=== PATIENT | female | born 1935 | race Caucasian/White ===

== ENCOUNTER → 2019-03-23 10:43 | Outpatient (BNVA) | payer MEDICARE, OTHER, SELFPAY | PROVIDERS: Family Provider Family Medicine; PCP Internal Medicine; Visit Provider Internal Medicine Cardiovascular Disease | DX: I48.91 Unspecified atrial fibrillation (principal) | CPT/HCPCS: 85610 ==

== ENCOUNTER → 2019-03-30 10:54 | Outpatient (BNVA) | payer MEDICARE, OTHER, SELFPAY | PROVIDERS: Family Provider Family Medicine; PCP Internal Medicine; Visit Provider Internal Medicine Cardiovascular Disease | DX: I48.91 Unspecified atrial fibrillation (principal) | CPT/HCPCS: 85610 ==

== ENCOUNTER → 2019-04-27 10:11 | Outpatient (BNVA) | payer MEDICARE, OTHER, SELFPAY | PROVIDERS: Family Provider Family Medicine; PCP Internal Medicine; Visit Provider Internal Medicine Cardiovascular Disease | DX: I48.91 Unspecified atrial fibrillation (principal) | CPT/HCPCS: 85610 ==

== ENCOUNTER → 2019-08-03 10:18 | Outpatient (BNVA) | payer MEDICARE, OTHER, SELFPAY | PROVIDERS: Family Provider Family Medicine; PCP Internal Medicine; Visit Provider Internal Medicine Cardiovascular Disease | DX: I48.0 Paroxysmal atrial fibrillation (principal) | CPT/HCPCS: 85610 ==

== ENCOUNTER 2019-08-06 11:43 | Inpatient (IN) | payer MEDICARE, OTHER, SELFPAY ==
[2019-08-06] VITALS (9 sets, daily range): BP systolic 138–159; BP diastolic 76–96; PULSE 90–104; RESP 16–18; TEMP 36.6–36.8; O2SAT 92–98; BMI 29.2
--- NOTE | 2019-08-06 11:55 | XR_ITS ---
WS: [id number] Portable AP upright chest, 08/06/2019 Clinical Data: fall; pre-op Comparison: PA and lateral chest, 10/03/2016. Findings: No nodules, masses or effusions are seen. The heart is slightly enlarged. The pulmonary vas cularity is not increased. No pneumonia or pneumothorax is seen. There is a hiatal hernia behind the heart. A 2-lead pacemaker remains in good position. XR/XR chest 1V portable [id number] Impression: 1. Cardiomegaly and permanent pacemaker. 2. Hiatal hernia.
--- NOTE | 2019-08-06 11:57 | ED_ITS ---
HPI - Extremity Problem General: Chief complaint: Extremity Injury, Lower Stated complaint: TRAUMATIC HIP INJURY Time Seen by Provider: 08/06/19 11:45 History of Present Illness: HPI Narrative: Patient was knocked down by a calf and stroke her left hip on the feet a lot on the way to the ground. Patient has pain to the left hip. Extremity is shortened and externally rotated. There is no evidence of other injury MD Complaint: extremity pain and joint pain Onset (ago): minute(s) Pain Consistency: constant Location: left Radiation: none Review of Systems General: Reports: 10 or more systems reviewed and unremarkable except in HPI and below PFSH ED PFSH: Medical History Atrial fibrillation Hypertension Pacemaker TIA (transient ischemic attack) Surgical History History of hysterectomy Hx of cholecystectomy Family History Other CAD (coronary artery disease) Diabetes Social History Smoking and tobacco status: never smoked Alcohol intake: never Physical Exam Const: COMMON NORMALS: no acute distress, average body habitus, patient oriented x3, alert and well nourished HENMT: COMMON NORMALS: normocephalic, atraumatic, hearing grossly normal bilaterally, external ears normal, EAC's normal, TM's normal bilaterally, Normal external nose present, Normal nasal mucous membranes and turbinates present, moist oral mucous membranes, oropharynx normal, dentition normal and gingiva normal HEAD & SCALP: normocephalic and atraumatic NOSE: Normal external nose present and Normal nasal mucous membranes and turbinates present EXTERNAL EAR: Yes external ears normal EXTERNAL AUDITORY CANAL: EAC's normal TYMPANIC MEMBRANE: TM's normal bilaterally Eye: COMMON NORMALS: Equal, round and reactive pupils present, EOMs intact bilaterally, conjunctivae normal, no scleral icterus, no papilledema, normal visual yeung by confrontation and fundi normal bilaterally CONJUNCTIVA: Yes conjunctivae normal PUPIL: Yes Equal, round and reactive pupils present DIRECT OPHTHALMOSCOPY: Yes no papilledema and Yes fundi normal bilaterally Neck/C-Spine: COMMON NORMALS: full ROM, no lymphadenopathy, supple, no meningeal signs, no JVD, Thyroid normal and No carotid bruits THYROID: Thyroid normal Chest: COMMONS NORMALS: normal inspection of the chest and normal palpation of entire chest wall Resp: COMMON NORMALS: normal respiratory effort, No retractions, No use of accessory muscles, clear to auscultation bilaterally and percussion normal AUSCULTATION: clear to auscultation bilaterally PERCUSSION: percussion normal Cardio: COMMON NORMALS: no JVD, regular rate, regular rhythm, S1 normal heart sound present, S2 normal heart sound present, No gallops present (Cardio), No clicks present (Cardio), No murmurs present (Cardio), No rub (Cardio) and Peripheral pulses 2+ throughout RATE: regular rate RHYTHM: regular rhythm HEART SOUNDS: S1 normal heart sound present and S2 normal heart sound present PERIPHERAL PULSES: Peripheral pulses 2+ throughout GI: COMMON NORMALS: Normal to inspection, nondistended, normoactive bowel sounds present, Soft to palpation, non-tender, No hepatosplenomegaly present, no masses and no bruits PALPATION: Yes Soft to palpation and Yes No hepatosplenomegaly present : COMMON NORMALS: Yes normal external appearance Back/Pelvis: COMMON NORMALS: thoracic and lumbar spine normal to inspection, no thoracic nor lumbar tenderness, thoraco-lumbar ROM normal and straight leg raise negative bilaterally Extremity: COMMON NORMALS: normal to inspection, full ROM, capillary refill normal, no joint enlargement, no clubbing, cyanosis or edema, no calf tenderness and no pedal edema Neuro: COMMON NORMALS: patient oriented x3 SENSORIUM/ORIENTATION: Yes alert and Yes somnolent MENINGEAL SIGNS: Yes no meningeal signs Skin: COMMON NORMALS: no rashes or lesions noted, no wounds, no jaundice and no mottling GENERAL SKIN EXAM: no rashes or lesions noted Course Vital Signs: Vital signs: Vital Signs Temperature 97.9 F 08/06/19 11:43 Pulse Rate 90 08/06/19 11:52 Respiratory Rate 17 08/06/19 11:52 Blood Pressure 150/82 08/06/19 11:52 Pulse Oximetry 97 08/06/19 11:55 MDM - Extremity (Nontraumatic) Lab Data: Labs: Lab Results 08/06/19 08/06/19 08/06/19 Range/Units 11:15 11:15 12:40 PT 31.50 H (10.5-13.3) SECO NDS INR 3.00 H (0.8-1.2) APTT 45.7 H (23.9-36.7) SECO NDS Sodium 139 (136-145) mmol/L Potassium 4.0 (3.5-5.1) mmol/L Chloride 99 (98-107) mmol/L Carbon Dioxide 26 (22-29) mmol/L Anion Gap 18.0 (5-19) BUN 16 (8-23) mg/dL Creatinine 1.0 H (0.5-0.9) mg/dL Glucose 117 H (65-115) mg/dL Calculated Osmolal ity 285 (285-295) mOsm/k g Lactate 1.2 (0.5-2.2) mmol/L Calcium 9.8 (8.5-10.5) mg/dL Total Bilirubin 0.5 (0.15-1.2) mg/dL AST 33 H (0-32) U/L ALT 25 (0-33) U/L Alkaline Phosphata se 92 (35-105) IU/L Total Protein 7.8 (6.6-8.7) g/dL Albumin 4.1 (3.5-5.2) g/dL Globulin 3.7 (1.3-4.6) g/dL Discharge Plan Discharge Patient Disposition: Admitted As Inpatient Clinical Impression: Fracture of hip Qualifiers: Encounter type: initial encounter Fracture type: closed Laterality: left Qualified Code(s): S72.002A - Fracture of unspecified part of neck of left femur, initial encounter for closed fracture Condition: Fair Referrals: Clarence Mendieta MD [Primary Care Provider] - Sigifredo Duran MD [Family Provider] - Coding Level of Care Code ED Master Pilot for [facility] Fwd Exam Comprehensive
--- NOTE | 2019-08-06 12:02 | XR_ITS ---
WS: [id number] Left hip, AP and frog leg, 08/06/2019 Clinical Data: hip fx Comparison: None. Findings: There is a comminuted intertrochanteric fracture left hip. The left femoral head remains within the a cetabulum. XR/XR hip LT 2-3V wo/w pel* [id number] Impression: Comminuted left hip intertrochanteric fracture.
[2019-08-06] MEDS: ondansetron 2 mg/ML SDV 2 mL 8 MG IVP (12:21)
[2019-08-06 12:34] LABS: Alanine Aminotransferase 25 U/L (0-33); Albumin Level 4.1 g/dL (3.5-5.2); Alkaline Phosphatase 92 IU/L (35-105); Aspartate Amino Transferase 33 U/L (0-32); Blood Urea Nitrogen 16 mg/dL (8-23); Calcium 9.8 mg/dL (8.5-10.5); Carbon Dioxide 26 mmol/L (22-29); Chloride 99 mmol/L (98-107); Globulin 3.7 g/dL (1.3-4.6); Glucose 117 mg/dL (65-115); Osmolality Calculated 285 mOsm/kg (285-295); Sodium 139 mmol/L (136-145); Total Bilirubin 0.5 mg/dL (0.15-1.2); Total Protein 7.8 g/dL (6.6-8.7)
[2019-08-06 12:52] LABS: Partial Thromboplastin Time 45.7 SECONDS (23.9-36.7)
[2019-08-06 13:04] LABS: Lactate (Lactic Acid level) 1.2 mmol/L (0.5-2.2)
[2019-08-06 13:31] LABS: Basophils # 0.1 10^3/uL (0.0-0.1); Basophils % 0.5 %; Eosinophils % 0.3 %; Hematocrit 38.6 % (37.0-47.0); Hemoglobin 11.8 g/dL (11.5-15.3); Lymphocytes % 8.4 %; Mean Corpuscular HGB Conc 30.6 g/dL (30.0-36.0); Mean Corpuscular Hemoglobin 28.3 pg (28.0-34.0); Mean Corpuscular Volume 92.6 fL (81-99); Mean Platelet Volume 10.1 fL (7.4-10.4); Monocytes # 0.5 10^3/uL (0.2-0.9); Monocytes % 4.3 %; Neutrophils # 10.3 10^3/uL (1.8-7.7); Neutrophils % 86.1 %; Nucleated Red Blood Cells % 0 %; Platelet Count 196 10^3/cmm (130-400); Red Blood Count 4.17 10^6/uL (4.1-5.3); Red Cell Distribution Width 14.7 % (12.1-15.1); White Blood Count 11.9 10^3/uL (4.0-10.0)
[2019-08-06] MEDS: morphine 4 mg/mL SDV 1 mL IVP ×2 (13:31→17:36)
[2019-08-06] MEDS: phytonadione (ADULT) 10 mg/mL Ampule 1 mL 2.5 MG PO (13:37)
[2019-08-06] MEDS: sodium chloride 0.9% 1,000 ML 100 ML IV (13:37)
--- NOTE | 2019-08-06 16:34 | ECG_ITS ---
Measurements Intervals [place] Rate: 96 P: TX: 0 QRS: -8 QRSD: 88 T: 153 QT: 338 QTc: 429 ATRIAL FIBRILLATION WITH ABERRANT CONDUCTION OR VENTRICULAR PREMATURE COMPLEXES ST DEVIATION AND MODERATE T-WAVE ABNORMALITY, CONSIDER LATERAL ISCHEMIA [-0.1+ mV T WAVE IN I/aVL/V5/V6] No previous ECG available for comparison Electronically Signed On 08-06-2019 21:05:02 CDT by Oziel Kelly M.D. [email or web address]
--- NOTE | 2019-08-06 16:34 | PM.HP ---
Providers/Chief Complaint Admitting Physician: Paola Gramajo MD Primary Care Provider: Clarence Mendieta MD Chief Complaint: TRAUMATIC HIP INJURY History of Present Illness Khushi Dolan is a 83 year old female who is quite active still. 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 One in animals, which she assumed was around 800 pounds, bumped into her and she fell on the ground near the water trough. She landed on her left hip. Almost instantly she realized that she had probably fractured her hip. She told her to go call for an ambulance. She was brought in and ultimately found to have a displaced left intertrochanteric hip fracture. This was purely a cow versus human situation with no preceding symptoms otherwise. Patient denies any previous issues with anesthesia. No recent chest pain or difficulty breathing when taking care of her ADLs or animals. She is most concerned currently about how quickly she will recover and be able to get back to doing what she usually does. Review of Systems Const: Denies: fever(s), chills or change in appetite Eyes: Denies: change in vision ENMT: Denies: throat pain, dry mouth or nasal congestion Card: Denies: chest pain, palpitations or edema Resp: Denies: dyspnea, productive cough or non-productive cough GI: Denies: abdominal pain, nausea, vomiting, diarrhea or constipation : Denies: difficulty voiding Musc: Reports: extremity pain Skin/Breast: Denies: rash or pruritus Neuro: Denies: headache(s), numbness in extremities, weakness in extremities or dizziness Psych: Denies: anxiety or depression Amilcar/Lymph: Reports: other (Denies significant bleeding despite anticoagulation); Denies: easy bruising Medications/Allergies Home Medications Medication Instructions Recorded Confirmed Last Taken Type warfarin 4 mg tablet 4 mg PO DIRECTED #90 tab 05/06/19 08/06/19 08/05/19 Rx chlorthalidone 25 mg tablet 12.5 mg PO DAILY tab 05/13/19 08/06/19 08/05/19 History multivitamin 1 tab PO DAILY 05/13/19 08/06/19 08/05/19 History metoprolol succinate 100 mg 100 mg PO DAILY #90 tab 06/30/19 08/06/19 08/05/19 Rx tablet,extended release 24 hr iron 325 mg PO BID 08/06/19 08/06/19 08/05/19 History omeprazole 20 mg PO DAILY 08/06/19 08/06/19 08/05/19 History potassium chloride 20 meq PO DAILY 08/06/19 08/06/19 08/05/19 History Allergies Allergy/AdvReac Type Severity Reaction Status Date / Time valsartan [From Diovan] Allergy Unknown Unverified 03/23/19 10:43 amlodipine AdvReac Unknown Verified 08/06/19 18:32 anxiety med AdvReac Severe very sick Uncoded 08/06/19 18:35 PFSH Acute PFSH: Medical History (Updated 08/06/19 @ 22:50 by Paola Gramajo MD) Atrial fibrillation Hypertension Pacemaker TIA (transient ischemic attack) X2 Surgical History (Updated 08/06/19 @ 22:43 by Paola Gramajo MD) History of cataract surgery History of hysterectomy Hx of cholecystectomy Family History Other CAD (coronary artery disease) Diabetes Social History (Updated 08/06/19 @ 22:45 by Paola Gramajo MD) Smoking and tobacco status: never smoked Alcohol intake: never Substance/Drug Use: never Marital status: Vitals/I&O/Wt Last Vital Signs Temp 97.8 F 08/06/19 15:17 Pulse 102 H 08/06/19 15:17 Resp 18 08/06/19 15:17 BP 138/96 08/06/19 15:17 Pulse Ox 98 08/06/19 15:17 Weight last 48 hrs Weight 68.039 kg Physical Exam Const: OTHER: Alert, oriented x3, cooperative HENMT: OTHER: Normocephalic atraumatic, moist mucus membranes Eye: OTHER: Pupils equally round and reactive to light, arcus senilis noted bilaterally Neck/C-Spine: OTHER: Supple, no thyromegaly or lymphadenopathy Resp: OTHER: Clear to auscultation bilaterally, no rales, rhonchi or wheezes noted, no accessory muscle use noted Cardio: OTHER: Regular rate, no murmurs GI: OTHER: Abdomen soft, nontender, nondistended with positive bowel sounds : OTHER: Normal external genitalia Grimm has been placed Extremity: NARRATIVE EXTREMITY EXAM: Left lower extremity externally rotated and shortened, capillary refill less than 2 seconds Neuro: OTHER: Face symmetric, speech clear, moves all extremities Psych: OTHER: Normal affect Skin: OTHER: Has some chronic skin changes, skin dry Urinary Catheter Management^: Grimm: Cath Placed During This Visit: yes Urinary Catheter Date of Insertion: 08/06/19 Urinary Catheter Time of Insertion: 14:42 Data : 08/06/19 13:27 08/06/19 11:15 A&P Assessment and plan (1) Fall from ground level: Secondary to a cow bumping into her Status: Acute (2) Closed intertrochanteric fracture of left hip: Status: Acute Qualifiers: Encounter type: initial encounter Fracture alignment: nondisplaced Qualified Code(s): S72.145A - Nondisplaced intertrochanteric fracture of left femur, initial encounter for closed fracture (3) Chronic anticoagulation: On Coumadin, therapeutic INR at 3.0 Status: Chronic (4) Atrial fibrillation: Chronically on beta-blockade Status: Chronic Qualifiers: Atrial fibrillation type: paroxysmal Qualified Code(s): I48.0 - Paroxysmal atrial fibrillation (5) Hypertension: Chronically on chlorthalidone with potassium supplementation Status: Chronic Qualifiers: Hypertension type: essential hypertension Qualified Code(s): I10 - Essential (primary) hypertension (6) Pacemaker: Status: Chronic (7) TIA (transient ischemic attack): History of 2 prior TIAs but no residual symptoms Status: Chronic Additional A&P Information Some microscopic hematuria noted Reactive leukocytosis Inpatient admission Dr. Montes has been consulted from orthopedics and I have discussed the case with him She received some vitamin K in the emergency room We will type and cross for FFP with plan to start giving it at 8 AM. It sounds like surgery will be around noonish which should allow plenty of time for recheck of INR. Patient is quite active on a regular basis and beyond reversal of anticoagulation I do not see contraindication to proceeding with surgery I have presently held chlorthalidone and potassium Low volume IV fluids tonight Metoprolol has been continued as has home PPI and multivitamin, iron Plans including post discharge plans were discussed with patient. We will evaluate how she does postoperatively to determine best course of action. Options include home with home health or skilled rehabilitation. Need anticoagulation restarted postoperatively with Coumadin Full code Attestations Medical Necessity Statement*: Anticipated stay greater than 2 midnights in a patient who had an accidental encounter with a cow leading to a fall and an intertrochanteric hip fracture necessitating repair. Plans are as indicated. Coding Level of Care Code Acute [employer] for [employer] Diagnoses Fall from ground level W18.30XA Closed intertrochanteric fracture of left hip S72.145A Encounter type: initial encounter Fracture alignment: nondisplaced Chronic anticoagulation Z79.01 Atrial fibrillation I48.0 Atrial fibrillation type: paroxysmal Hypertension I10 Hypertension type: essential hypertension Pacemaker Z95.0 TIA (transient ischemic attack) G45.9
--- NOTE | 2019-08-06 20:51 | PM.CONSULT ---
Providers/Reason For Consult Consulting Physican/Specialty*: Real Montes D.O. Orthopedic surgery Reason for Consult*: left hip pain Attending Physician: Paola Gramajo MD Primary Care Provider: Clarence Mendieta MD History of Present Illness History of Present Illness Khushi Dolan is a 83 year old female was knocked down by a calf injuring her left hip. She is brought to [facility] x-ray show a closed, displaced left intertrochanteric hip fracture. She denies any other somatic injuries. Review of Systems Const: Denies: fever(s) or chills Card: Denies: chest pain or syncope Resp: Denies: dyspnea or productive cough GI: Denies: abdominal pain, nausea or vomiting Musc: Reports: joint pain (left hip pain) Meds/Allergies Home Medications and Allergies Home Medications Medication Instructions Recorded Confirmed Last Taken Type warfarin 4 mg tablet 4 mg PO DIRECTED #90 tab 05/06/19 08/06/19 08/05/19 Rx chlorthalidone 25 mg tablet 12.5 mg PO DAILY tab 05/13/19 08/06/19 08/05/19 History multivitamin 1 tab PO DAILY 05/13/19 08/06/19 08/05/19 History metoprolol succinate 100 mg 100 mg PO DAILY #90 tab 06/30/19 08/06/19 08/05/19 Rx tablet,extended release 24 hr iron 325 mg PO BID 08/06/19 08/06/19 08/05/19 History omeprazole 20 mg PO DAILY 08/06/19 08/06/19 08/05/19 History potassium chloride 20 meq PO DAILY 08/06/19 08/06/19 08/05/19 History Allergies Allergy/AdvReac Type Severity Reaction Status Date / Time valsartan [From Arminvan] Allergy Unknown Unverified 03/23/19 10:43 amlodipine AdvReac Unknown Verified 08/06/19 18:32 anxiety med AdvReac Severe very sick Uncoded 08/06/19 18:35 Current Medications Current Medications Generic Name Dose Route Start Last Admin Trade Name Freq PRN Reason Stop Dose Admin Sodium Chloride 1,000 mls @ 100 mls/hr 08/06/19 13:00 08/06/19 13:37 Sodium Chloride 0.9% IV 100 mls/hr .Q10H SUPRIYA Administration Morphine Sulfate 4 mg 08/06/19 13:00 08/06/19 17:36 Morphine IVP 4 mg Q4H PRN Administration SEVERE PAIN Ondansetron HCl 8 mg 08/06/19 12:03 08/06/19 12:21 Zofran IVP 8 mg Q6H PRN Administration NAUSEA AND VOMITING PFSH Acute PFSH: Medical History Atrial fibrillation Hypertension Pacemaker TIA (transient ischemic attack) Surgical History History of hysterectomy Hx of cholecystectomy Family History Other CAD (coronary artery disease) Diabetes Social History Smoking and tobacco status: never smoked Alcohol intake: never Vitals/I&O/Wt Last Vital Signs Temp 98.3 F 08/06/19 19:58 Pulse 95 08/06/19 19:58 Resp 18 08/06/19 19:58 BP 144/76 08/06/19 19:58 Pulse Ox 98 08/06/19 19:58 08/06/19 08/06/19 08/06/19 06:59 14:59 22:59 Intake Total 220 / 220 Output Total 900 / 900 Balance -680 / -680 Weight last 48 hrs Weight 150 lb Physical Exam Narrative: EXAM NARRATIVE: 83-year-old white female who is alert and cooperative. Speech is fluent HENMT: COMMON NORMALS: normocephalic and atraumatic HEAD & SCALP: normocephalic and atraumatic Neck/C-Spine: COMMON NORMALS: supple and no JVD Resp: COMMON NORMALS: normal respiratory effort, No retractions and clear to auscultation bilaterally AUSCULTATION: clear to auscultation bilaterally, no crackles, no rales, no rhonchi and no wheezes Cardio: COMMON NORMALS: no JVD, regular rate, S1 normal heart sound present, S2 normal heart sound present and Peripheral pulses 2+ throughout RATE: regular rate HEART SOUNDS: S1 normal heart sound present and S2 normal heart sound present PERIPHERAL PULSES: Peripheral pulses 2+ throughout GI: COMMON NORMALS: Normal to inspection, nondistended, normoactive bowel sounds present and Soft to palpation PALPATION: Yes Soft to palpation Extremity: RIGHT LOWER EXTREMITY: Yes lower leg Right lower leg: Yes special tests Right lower leg special tests: Reji's sign: Negative LEFT LOWER EXTREMITY: Yes hip joint (left lower extremity shortened and externally rotated) Left hip: Yes special tests and Yes lower leg Left lower leg: Yes special tests Left lower leg special tests: Reji's sign: Negative Urinary Catheter Management^: Grimm: Cath Placed During This Visit: yes Reason for Continuing Indwelling Catheter: Accurate Measurement of Urinary Output in Critically Ill Patients Urinary Catheter Date of Insertion: 08/06/19 Urinary Catheter Time of Insertion: 14:42 A&P Assessment and plan (1) Fracture of hip: 83-year-old white female with closed, displaced left intertrochanteric hip fracture. Risks, benefits and potential complications of surgical intervention were discussed with the patient. She is agreeable to proceed with surgical intervention which will be undertaken tomorrow afternoon. Patient to be medically optimized. Specifically INR greater than 3 to be more normalized to around at least 1.5 Pre-and postoperative antibiotics to be ordered. Patient to be kept at bedrest. Will allow her clear liquid breakfast. Status: Acute Qualifiers: Encounter type: initial encounter Fracture type: closed Laterality: left Qualified Code(s): S72.002A - Fracture of unspecified part of neck of left femur, initial encounter for closed fracture (2) Hypertension: Status: Acute Qualifiers: Hypertension type: essential hypertension Qualified Code(s): I10 - Essential (primary) hypertension (3) Pacemaker: Status: Acute (4) TIA (transient ischemic attack): Status: Acute (5) Atrial fibrillation: Status: Acute Qualifiers: Atrial fibrillation type: paroxysmal Qualified Code(s): I48.0 - Paroxysmal atrial fibrillation Consult Attestations Medical Necessity Statement: patient's care will require at least 2 overnight stay. She'll be medically optimized overnight with surgery planned for tomorrow goal would be to return the patient home with home health Time Spent in Patient Care: 16 - 35 minutes (>than 50% of time spent in counselling and/or direct pt care on unit). Coding Level of Care Code Acute Branner Machine Tender for Davonte Rodríguez Diagnoses Fracture of hip S72.002A Encounter type: initial encounter Fracture type: closed Laterality: left Hypertension I10 Hypertension type: essential hypertension Pacemaker Z95.0 TIA (transient ischemic attack) G45.9 Atrial fibrillation I48.0 Atrial fibrillation type: paroxysmal
[2019-08-06 21:12] LABS: Add Urine Microscopic? YES; Bilirubin Urine Neg (NEGATIVE); Blood Urine 2+ (Negative); Glucose Urine UA Norm (Normal); Ketones Urine Negative (Negative); Leukocyte Esterase Urine Negative (Negative); Nitrate Urine Negative (Negative); Protein Urine Neg (Negative); Urine Appearance Clear (CLEAR); Urine Color Yellow (Yellow); Urobilinogen Urine Norm (Negative); pH Urine 6 (5-7)
[2019-08-06 21:17] LABS: Add Urine Culture? No; Bacteria Urine TRACE; Squamous Epithelial Cell Urine 0-4 (0-5)
[2019-08-07] VITALS (23 sets, daily range): BP systolic 83–156; BP diastolic 44–94; PULSE 86–122; RESP 12–20; TEMP 36.7–37.4; O2SAT 93–100
--- NOTE | 2019-08-07 | SCC_ITS ---
Procedure Done: closed reduction with intramedullary nailing left intertrochanteric hip fracture 44.4 seconds of fluoroscopic guidance, for a cumulative dose of 5.90 mGy, was provided to Dr. Montes by the radiology department. C-arm images of the LEFT hip were saved for the patient's permanent record. [facility]
--- NOTE | 2019-08-07 | XR_ITS ---
WS: [id number] XR hip LT 2-3V wo/w pel* [id number] REASON FOR EXAM: OR PICS FINDINGS: C-arm images show a gamma nailing good position with the intertrochanteric fracture immobil ized with a gamma nail satisfactory. XR/XR hip LT 2-3V wo/w pel* [id number] IMPRESSION: Satisfactory fixation of the left hip with a gamma nail.
[2019-08-07] MEDS: acetaminophen 325 mg Tablet 650 MG PO ×2 (00:04→08:55)
[2019-08-07] MEDS: morphine 4 mg/mL SDV 1 mL IVP (03:56)
[2019-08-07 05:16] LABS: Basophils % 0.4 %; Eosinophils # 0.1 10^3/uL (0.0-0.8); Eosinophils % 0.9 %; Hematocrit 35.8 % (37.0-47.0); Hemoglobin 11.1 g/dL (11.5-15.3); Lymphocytes # 1.4 10^3/uL (0.8-4.8); Lymphocytes % 17.2 %; Mean Corpuscular Hemoglobin 28.5 pg (28.0-34.0); Monocytes # 0.8 10^3/uL (0.2-0.9); Monocytes % 9.6 %; Neutrophils # 5.7 10^3/uL (1.8-7.7); Neutrophils % 71.5 %; Nucleated Red Blood Cells % 0 %; Platelet Count 164 10^3/cmm (130-400); Red Blood Count 3.89 10^6/uL (4.1-5.3); Red Cell Distribution Width 14.8 % (12.1-15.1)
[2019-08-07 05:33] LABS: INR 1.68 (0.8-1.2)
[2019-08-07 05:38] LABS: Anion Gap 13.5 (5-19); Blood Urea Nitrogen 13 mg/dL (8-23); Calcium 8.9 mg/dL (8.5-10.5); Carbon Dioxide 28 mmol/L (22-29); Chloride 97 mmol/L (98-107); Glucose 99 mg/dL (65-115); Osmolality Calculated 276 mOsm/kg (285-295); Potassium 3.5 mmol/L (3.5-5.1); Sodium 135 mmol/L (136-145)
--- NOTE | 2019-08-07 06:30 | PC.NURSE ---
Dr Montes called verified that pt get clear liq diet then npo after 0800. Called dietary and ordered tray.
[2019-08-07] MEDS: ferrous sulfate EC 325 mg Tablet PO (07:53)
[2019-08-07] MEDS: metoprolol succinate ER (24 HR) 100 mg Tablet PO (07:53)
[2019-08-07] MEDS: diphenhydrAMINE 50 mg Capsule PO (08:55)
--- NOTE | 2019-08-07 09:46 | P.PN_ITS ---
Subjective Subjective: Interval history: Called with patient having some itching after FFP infusion has been going a bit. Ordered Benadryl and Tylenol and continuation of the FFP at that time. Towards the end of the FFP infusion, patient developed an actual rash between her legs, shortness of breath, tachycardia and hypotension. A liter of fluid was ordered. She had had her metoprolol dose prior to initiation of FFP as well though this is a normal medication. Review of a.m. labs did not show significant drop in hemoglobin or bump in creatinine earlier today. Vitals/I&O/Wt Last Vital Signs Temp 98.4 F 08/07/19 09:33 Pulse 113 H 08/07/19 09:33 Resp 20 H 08/07/19 09:33 BP 88/54 08/07/19 09:33 Pulse Ox 94 08/07/19 09:33 08/06/19 08/07/19 08/07/19 22:59 06:59 14:59 Intake Total 280 / 280 60 / 340 480 / 480 Output Total 900 / 900 225 / 1125 Balance -620 / -620 -165 / -785 480 / 480 Weight last 48 hrs Weight 68.039 kg Physical Exam Const: OTHER: Tachypneic, red face, mild distress with some tearing noted after recent episode of emesis HENMT: OTHER: Nasal rhinorrhea Eye: OTHER: Extraocular movements intact Neck/C-Spine: OTHER: Supple Resp: OTHER: Clear anteriorly, faint rales bibasilar, tachypnea with some supraclavicular retractions but was coming down while I was in the room Cardio: OTHER: Tachycardic, irregular GI: OTHER: Abdomen soft : OTHER: Grimm in place, no gross blood noted Extremity: NARRATIVE EXTREMITY EXAM: Left lower extremity externally rotated and shortened, pulse intact Neuro: OTHER: Face symmetric, speech clear, moves all extremities Psych: OTHER: Alert and oriented Skin: OTHER: Patient has diffuse macular erythema starting in the lower abdomen and extending to her knees that was not present previously Urinary Catheter Management^: Grimm: Cath Placed During This Visit: yes Reason for Continuing Indwelling Catheter: Required Immobilization for Trauma or Surgery or Anesthesia Urinary Catheter Date of Insertion: 08/06/19 Urinary Catheter Time of Insertion: 14:42 Data : 08/07/19 03:45 08/07/19 03:45 A&P Assessment and plan (1) Transfusion reaction: Patient was receiving a unit of FFP for vitamin K reversal and had itching, hypotension, shortness of breath, vomiting and development of a rash. She was hypoxic requiring oxygen therapy and is not normally on oxygen. [place] of symptoms is concerning for an anaphylactic reaction. Had an effective receiving home dose of metoprolol but seems less likely than the association after transfusion. Last dose of narcotics was about 4 hours prior. Status: Acute Qualifiers: Encounter type: initial encounter Qualified Code(s): T80.92XA - Unspecified transfusion reaction, initial encounter (2) Fall from ground level: Secondary to a cow bumping into her Status: Acute (3) Closed intertrochanteric fracture of left hip: With tentative plan for OR today pending evaluation post transfusion reaction Status: Acute Qualifiers: Encounter type: initial encounter Fracture alignment: nondisplaced Qualified Code(s): S72.145A - Nondisplaced intertrochanteric fracture of left femur, initial encounter for closed fracture (4) Chronic anticoagulation: On Coumadin, therapeutic INR at 3.0 at admission, was 1.6 this morning Status: Chronic (5) Atrial fibrillation: Chronically on beta-blockade. During transfusion reaction with Allyn martin with RVR. Status: Chronic Qualifiers: Atrial fibrillation type: paroxysmal Qualified Code(s): I48.0 - Paroxysmal atrial fibrillation (6) Hypertension: Chronically on chlorthalidone with potassium supplementation. These were held this morning. Status: Chronic Qualifiers: Hypertension type: essential hypertension Qualified Code(s): I10 - Essential (primary) hypertension (7) Pacemaker: Status: Chronic (8) TIA (transient ischemic attack): History of 2 prior TIAs but no residual symptoms Status: Chronic Additional A&P Information Some microscopic hematuria noted, could be related to Grimm placement in the setting of therapeutic INR Reactive leukocytosis, resolved Transfusion reaction labs have been ordered Check IgA level Hold second unit of FFP Continue fluid bolus Telemetry monitoring Stat chest x-ray EKG/troponin Pacemaker check > device functioning correctly, 3 atrial arrhythmia episodes since 04/16 including today. Indicates ventricular rate is greater than 100 nicole roximately 20% of the time. May need some diuresis but need blood pressure to recover a bit Discussed with Dr. Montes and patient surgery will be bumped back to later today. Depending on how she does we may delay surgery until tomorrow. Off home Coumadin for surgery though it will need restarted Off of home chlorthalidone and potassium Discharge plans will be determined depending on how she does postoperatively Reviewed with patient what a transfusion reaction is. She is understandably concerned that something could be going on with her heart. She describes the symptoms as being very similar to prior to when she had her pacemaker placed. Reassured her that it is functioning normally and that we would monitor her today. She asked about whether or not we should delay surgery. I told her we would evaluate how she does and make a decision later on this morning. Delaying surgery until tomorrow is an option per Dr. Montes. Full code Attestations Medical Necessity Statement*: Requires ongoing inpatient stay for management status post hip fracture as well as for acute transfusion reaction Time Spent in Patient Care: 16 - 35 minutes 32 minutes Critical Care Time: The high probability of a clinically significant, sudden or life threatening deterioration of the patient's cardiopulmonary system(s) required my full and direct attention, intervention and personal management. The critical care time is as shown. This time is in addition to time spent performing any reported procedures but includes the following: x Data and vital sign review and interpretation x Patient assessment, examination and intervention x Documentation x Medication orders and management Called emergently due to progressive symptoms during transfusion of FFP c onsistent with an acute transfusion reaction. Patient had hypotension, tachycardia, hypoxemia, development of rash and an episode of vomiting. This is significantly concerning for anaphylaxis. She received IV fluids, Benadryl and some Tylenol. Heart rate was as high as 130s with blood pressure as low as 80 systolic. Without emergent intervention, patient was at risk for continued severe clinical decline. Critical care time documented includes initial management & evaluation and follow-up response to treatment as well as discussion with orthopedics. Current vital signs show blood pressure 107/63, heart rate 104, and oxygen saturation up to 97% on 2 L by nasal cannula. Labs, ekg and x-ray are still pending and will be reviewed. Coding Level of Care Code Acute Clinical Nursing Coordinator for Davonte Rodríguez Diagnoses Transfusion reaction T80.92XA Encounter type: initial encounter Fall from ground level W18.30XA Closed intertrochanteric fracture of left hip S72.145A Encounter type: initial encounter Fracture alignment: nondisplaced Chronic anticoagulation Z79.01 Atrial fibrillation I48.0 Atrial fibrillation type: paroxysmal Hypertension I10 Hypertension type: essential hypertension Pacemaker Z95.0 TIA (transient ischemic attack) G45.9
--- NOTE | 2019-08-07 09:47 | PC.CHAP ---
Pastoral Care Encounter/Spiritual Assessment Type of Contact [] Declined [employer] visit [] Patient/Family/Request visit [] Outpatient visit [] Follow-up visit [] Physician referral [] Code/Alert [x Routine visit [] Staff referral [] Actively dying [] Patient sleeping [] Family support [] [] Out of room [] Palliative care [] [] Receiving care in room [] Pre-surgical visit [] Trauma [] Long length of stay [] ICU visit [] Other: Relational/Emotional Strength [] Patient feels connected with others/family/visitors/staff [] Distress [] Loneliness/isolation [] Abandonment Spirituality of Patient [] Person of Sandhya [] Attends Evangelical of their Sandhya [] Believes in Prayer [] Reads Bible or Orthodox materials [] There are Spiritual issues to be addressed Radiology Transcriptionist Interventions [x] Prayer [] Active listening [] Non-anxious presence [] Spiritual/emotional support [] Crisis/trauma care [] Spiritual counseling [] Bereavement support [] Provided bereavement packet [] Provided Bible/devotional materials [] Provided toy/stuffed animal, coloring book to patient or family member [] Provided Communion [] Anointing/[place] [] Salvation [x] Completed spiritual assessment [] Other: Impact on Illness or Injury [] Angry [] Fearful [] Anxious [] Often cries [] Exhaustion [] Unable to work [] Unable to attend adventism [] Unable to walk/stand [] Unable to read [] Unable to drive [] Unable to eat/drink [] Unable to sleep [] Unable to be with family [] Patient intubated [] Other: Summary Patient resting. Tabitha lady Time spent with patient 10 min
--- NOTE | 2019-08-07 09:48 | XR_ITS ---
WS: [id number] PORTABLE CHEST HISTORY: hypoxemia, transfusion rxn COMPARISON: 08/06/2019 LEFT subclavian cardiac pacer. Curvilinear atelectasis at the LEFT lung base. There is a large hiatal hernia. No pleural effusion or pneumothorax. Cardiac size: Mildly enlarged cardiac silhouette. Mediastinum/Aorta: Mild atherosclerosis aorta. Mild osteopenia. XR/XR chest 1V portable [id number] IMPRESSION: 1. Large hiatal hernia. 2. No pneumonia. 3. Partially calcified aorta and mild cardiomegaly.
[2019-08-07 09:52] LABS: Acetaminophen < 5.0 ug/mL (10-30)
--- NOTE | 2019-08-07 09:59 | ECG_ITS ---
Measurements Intervals [place] Rate: 103 P: MS: 0 QRS: -9 QRSD: 97 T: 120 QT: 368 QTc: 483 ATRIAL FIBRILLATION WITH RAPID VENTRICULAR RESPONSE INFERIOR MYOCARDIAL INFARCTION [40+ ms Q WAVE AND/OR ST/T ABNORMALITY IN II/aVF], PROBABLY OLD ANTEROSEPTAL MYOCARDIAL INFARCTION [40+ ms Q WAVE IN V1-V4], PROBABLY OLD Compared to ECG 08/06/2019 17:03:15 Myocardial infarct finding now present Ventricular premature complex(es) no longer present Aberrant conduction of supraventricular beat(s) no longer present T-wave abnormality no longer present Possible ischemia no longer present Electronically Signed On 08-08-2019 14:57:39 CDT by Oziel Kelly M.D. [email or web address]
[2019-08-07] MEDS: sodium chloride 0.9% 500 ML IV (10:07)
[2019-08-07 10:20] LABS: INR 1.46 (0.8-1.2)
[2019-08-07 10:38] LABS: Troponin(5th) Baseline 17 ng/L (0-10)
--- NOTE | 2019-08-07 10:42 | PC.NURSE ---
Reaction after FFP infusion - Symptoms of patient are as follows patient states she doesn't feel right , Begins itching c/o itching, and rash noted to lower extremities (upper thigh to knee only). Infusion was complete and vitals taken and recorded. Patient stated she felt sick to her stomach and did vomit Benadryl was given as well as Tylenol and initiated the reaction protocol. Will continue to closely monitor. TURNERW, JENN
[2019-08-07 10:49] LABS: Immunoglobulin IGA 336 mg/dL (70-400)
[2019-08-07] MEDS: sodium chloride 0.9% 1,000 ML 75 ML IV ×2 (11:05)
[2019-08-07 12:54] LABS: Troponin 5 2HR 15.55 ng/L (0-10)
[2019-08-07 12:55] LABS: Troponin 5 2HR Delta -1.45 ABS# (0-10)
--- NOTE | 2019-08-07 13:39 | P.OP_ITS ---
Operative Report Date of procedure: August 07, 2019 Pre-op Diagnosis: left intertrochanteric hip fracture Post-op diagnosis: same Post-op Findings: satisfactory reduction placement of implants Procedure Done: closed reduction with intramedullary nailing with proximal and distal interlocking of left intertrochanteric hip fracture Implants: Woodruff gamma nail Pathology: none sent Surgeon: Real Montes Anesthesia: General Estimated blood loss (mL): 200 Complications: no apparent complications Findings: as above Condition: stable Disposition: floor Brief History: 83-year-old white female who was knocked over by a calf at home. As result of her being knocked to the ground she developed left-sided hip pain and was able to weight-bear. She was brought to the emergency room. Images showed a displaced left intertrochanteric hip fracture. Risks, benefits and potential complications of hip fracture surgery discussed the patient. Risks include aren't limited to failure of the fracture to heal, potential complications from implants such as breakage or migration. Medical complications can include infection, nerve/blood vessel/tendon injury, blood clots, heart attack, stroke risk up to including . All questions were answered. The patient was agreeable to proceed with surgery. Procedure: 2 g Ancef short gamma nail 125? by 11 mm x 180 mm 10.5 mm x 100 mm lag screw 5 mm x 37.5 mm distal interlocking screw FloSeal Patient identified. Surgical site signed. Surgical permit signed. Patient received 2 g of Ancef intravenously for surgical prophylaxis. Patient was placed under general anesthesia while in her hospital bed and then transferred to the fracture table and position for left hip surgery. The affected limb was adducted, internally rotated and placed in traction. Flouroscopic imaging in AP and lateral images showed satisfactory reduction of the patient's hip fracture. A 6 cm incision was made just proximal to the tip of the greater trochanter in line with the long axis of the femur. Dissection was carried down sharply with knife through skin,subcutaneous tissue and the fascia kyle down to the tip of the greater trochanter. The initial guidewire was placed at the greater trochanteric starting point under fluoroscopic guidance and then advanced into the intramedullary canal. The opening drill reamer was then used to create the starting point for the gamma nail insertion. An 11 mm diameter by 180mm mm by 125 degree neck angle Gamma nail was inserted through the starting point. A 2 cm incision was made for insertion of the lag screw. Depth of insertion as well as version was then assessed using fluoroscopic imaging and by inserting the short guidewire for the lag screw. Once satisfied with depth of insertion and inversion the guidewire was advanced under fluoroscopic imaging to the appropriate depth. Depth of insertion measured 105 mm, I opted to insert a 100 mm length by 10.5 mm diameter lag screw. Drill reamer was used to ream to 100 mm and the lag screw was inserted. The lag screw was locked into position with a set screw and the set screw was loosened 1/4 turn to allow compression at the fracture site. A single distal interlocking screw was inserted using the guide and cannulated sleeves after making a third longitudinal incision 1 cm in length along the long axis of the femur. The distal interlocking hole in the nail. Fluoroscopic imaging was used to verify that the drill bit indeed went through the appropriate hole. A depth gauge was used. A 5 mm x 37.5 mm distal interlocking screw was then inserted without difficulty. Fluoroscopic imaging was used to verify the placement of all implants. Reduction of the fracture and placement of implants was found to be satisfactory on AP and lateral fluoroscopic imaging. The wounds were irrigated with Betadine-containing saline solution and antibiotic containing saline solution. FloSeal was placed in the proximal incision for additional hemostasis. The wounds were closed in layers with jason on skin. 20 mL of a one-to-one mixture of 1% lidocaine half percent Marcaine with epinephrine were injected into the incision sites. Triple antibiotic ointment was applied to the staple line. Sterile dressings were applied. The patient was taken off of the fracture table transferred to his hospital bed extubated and taken to the recovery room. All counts were correct. Patient tolerated procedure well.
--- NOTE | 2019-08-07 15:59 | ECG_ITS ---
Measurements Intervals [place] Rate: 92 P: NE: 0 QRS: -10 QRSD: 91 T: 78 QT: 380 QTc: [address] & T-WAVE ABNORMALITY ABNORMAL RHYTHM ECG Compared to ECG 08/06/2019 17:03:15 Ventricular premature complex(es) no longer present Aberrant conduction of supraventricular beat(s) no longer present Possible ischemia no longer present T-wave abnormality still present Electronically Signed On 08-08-2019 15:15:20 CDT by Oziel Kelly M.D. [id number]
--- NOTE | 2019-08-07 16:14 | PC.NURSE ---
and sister notified that patient has left the floor for hip surgery with dr. arredondo. JENN PERSAUD
--- NOTE | 2019-08-07 16:22 | PC.NURSE ---
1605 - patient to OR via OR NurseJack. SMW, PARTS COUNTER CLERK
[2019-08-07 16:37] LABS: Troponin 5 6HR 13.89 ng/L (0-10)
[2019-08-07 16:59] LABS: Troponin 5 6HR Delta -3.11 ng/L (0-12)
--- NOTE | 2019-08-07 17:10 | ANES.PREANE2 ---
Pre-Anesthetic Assessment Pre-Anesthetic Assessment: Height/Weight: Height 1.52 m Weight 68.039 kg Temp Pulse Resp BP Pulse Ox 99.4 F 96 18 146/78 96 08/07/19 16:26 08/07/19 16:26 08/07/19 16:26 08/07/19 16:26 08/07/19 16:26 Preop Diagnosis: left intertrochanteric hip fracture Proposed Procedure: Operation Date: 08/07/19 14:35 Proposed Procedures p Trochanteric Femoral Nail(Left) - Real Montes, DO Was Beta Willard taken within 24 hours: Yes Last intake: Intake Last Liquid Date 08/07/19 Last Liquid Time 07:30 Last Solid Date 08/06/19 Last Solid Time 16:00 Social: Social History: No alcohol and No tobacco Exam: Pre-Anes Outpt Exam: alert, oriented x 3 and clear to auscultation bilaterally Additional Exam Findings (including area of procedure): Irregular heart rate with no murmurs/gallops/rubs Airway: Submandibular: WNL Cervical ROM: WNL MP: 2 Dentition: Full History/ROS: No significant history except as noted Pulmonary: Pulmonary: None reported CV/HEM: CV/HEM: Anemia and Arrythmia : : None reported Hepatic: Hepatic: None reported GI: Comments: History of Gastric CA s/p XRT Metabolic: Metabolic: None reported Musc/skel: Musc/skel: OA/DJD Neuropsych: Neuropsych: TIA Anesthetic Plan: ASA status: 3 Anesthesia: General Risk of > 500 ml blood loss (7ml/kg in children): No Meds/Allergies Current Medications: Current Medications Generic Name Dose Route Start Last Admin Trade Name Freq PRN Reason Stop Dose Admin Acetaminophen 650 mg 08/06/19 22:54 08/07/19 00:04 Tylenol PO 650 mg Q6H PRN Administration Mild/Mod Pain Or Temp >/= 101 Ferrous Sulfate 325 mg 08/07/19 08:00 08/07/19 07:53 Ferrous Sulfate PO 325 mg BIDWM SUPRIYA Administration Sodium Chloride 1,000 mls @ 75 ml s/hr 08/06/19 23:00 08/07/19 11:05 Sodium Chloride 0.9% IV 08/07/19 18:00 75 mls/hr .[id number] SUPRIYA Administration Metoprolol Succina te 100 mg 08/07/19 09:00 08/07/19 07:53 Toprol Xl PO 100 mg DAILY SUPRIYA Administration Morphine Sulfate 4 mg 08/06/19 13:00 08/07/19 03:56 Morphine IVP 4 mg Q4H PRN Administration SEVERE PAIN Multivitamins Ther apeutic 1 tab 08/07/19 09:00 08/07/19 07:54 Multivitamin Tab PO Not Given DAILY SUPRIYA Pantoprazole Sodiu m 40 mg 08/07/19 09:00 08/07/19 07:54 Protonix PO Not Given DAILY [facility] PFSH Anesthesia PFSH: Medical History (Updated 08/07/19 @ 10:04 by Paola Gramajo MD) Atrial fibrillation Hypertension Pacemaker TIA (transient ischemic attack) X2 Surgical History (Updated 08/06/19 @ 22:43 by Paola Gramajo MD) History of cataract surgery History of hysterectomy Hx of cholecystectomy Family History Other CAD (coronary artery disease) Diabetes Social History (Updated 08/06/19 @ 22:45 by Paola Gramajo MD) Smoking and tobacco status: never smoked Alcohol intake: never Substance/Drug Use: never Marital status: Data Anesthesia CBC & Chem 7: 08/07/19 03:45 08/07/19 03:45 Other Labs: Laboratory Results - last 48 hr 08/06/19 08/06/19 08/06/19 11:15 11:15 12:40 WBC RBC Hgb Hct MCV MCH MCHC RDW Plt Count MPV Neut % (Auto) Lymph % (Auto) Bureau % (Auto) Eos % (Auto) Baso % (Auto) Neut # (Auto) Lymph # (Auto) Bureau # (Auto) Eos # (Auto) Baso # (Auto) Nucleated RBC % (auto) Nucleated RBCs # PT 31.50 H INR 3.00 H APTT 45.7 H Sodium 139 Potassium 4.0 Chloride 99 Carbon Dioxide 26 Anion Gap 18.0 BUN 16 Creatinine 1.0 H Glucose 117 H Calculated Osmolality 285 Lactate 1.2 Calcium 9.8 Total Bilirubin 0.5 AST 33 H ALT 25 Alkaline Phosphatase 92 Troponin I 6 Hour Troponin I Hi Sens Del Troponin T Baseline Troponin T 120 Minute Delta Troponin T Total Protein 7.8 Albumin 4.1 Globulin 3.7 Urine Color Urine Appearance Urine pH Ur Specific [place] Urine Protein Urine Glucose (UA) Urine Ketones Urine Blood Urine Nitrate Urine Bilirubin Urine Urobilinogen Ur Leukocyte Esterase Urine RBC Urine WBC Ur Squamous Epith Cells Urine Bacteria Acetaminophen IgA Blood Type Rho(D) Type Antibody Screen Direct Antiglob Test 08/06/19 08/06/19 08/06/19 12:40 13:27 20:30 WBC 11.9 H RBC 4.17 Hgb 11.8 Hct 38.6 MCV 92.6 MCH 28.3 MCHC 30.6 RDW 14.7 Plt Count 196 MPV 10.1 Neut % (Auto) 86.1 Lymph % (Auto) 8.4 Bureau % (Auto) 4.3 Eos % (Auto) 0.3 Baso % (Auto) 0.5 Neut # (Auto) 10.3 H Lymph # (Auto) 1.0 Bureau # (Auto) 0.5 Eos # (Auto) 0.0 Baso # (Auto) 0.1 Nucleated RBC % (auto) 0 Nucleated RBCs # 0.0 PT INR APTT Sodium Potassium Chloride Carbon Dioxide Anion Gap BUN Creatinine Glucose Calculated Osmolality Lactate Calcium Total Bilirubin AST ALT Alkaline Phosphatase Troponin I 6 Hour Troponin I Hi Sens Del Troponin T Baseline Troponin T 120 Minute Delta Troponin T Total Protein Albumin Globulin Urine Color Yellow Urine Appearance Clear Urine pH 6 Ur Specific [place] 1.010 Urine Protein Neg Urine Glucose (UA) Norm Urine Ketones Negative Urine Blood 2+ H Urine Nitrate Negative Urine Bilirubin Neg Urine Urobilinogen Norm Ur Leukocyte Esterase Negative Urine RBC 5-10 H Urine WBC None Ur Squamous Epith Cells 0-4 H Urine Bacteria Trace Acetaminophen IgA Blood Type A Negative Rho(D) Type Negative Antibody Screen Negative Direct Antiglob Test 08/07/19 08/07/19 08/07/19 03:45 03:45 03:45 WBC 8.0 RBC 3.89 L Hgb 11.1 L Hct 35.8 L MCV 92.0 MCH 28.5 MCHC 31.0 RDW 14.8 Plt Count 164 MPV 11.0 H Neut % (Auto) 71.5 Lymph % (Auto) 17.2 Bureau % (Auto) 9.6 Eos % (Auto) 0.9 Baso % (Auto) 0.4 Neut # (Auto) 5.7 Lymph # (Auto) 1.4 Bureau # (Auto) 0.8 Eos # (Auto) 0.1 Baso # (Auto) 0.0 Nucleated RBC % (auto) 0 Nucleated RBCs # 0.0 PT 20.40 H D INR 1.68 H APTT Sodium 135 L Potassium 3.5 Chloride 97 L Carbon Dioxide 28 Anion Gap 13.5 BUN 13 Creatinine 0.7 Glucose 99 Calculated Osmolality 276 L Lactate Calcium 8.9 Total Bilirubin AST ALT Alkaline Phosphatase Troponin I 6 Hour Troponin I Hi Sens Del Troponin T Baseline Troponin T 120 Minute Delta Troponin T Total Protein Albumin Globulin Urine Color Urine Appearance Urine pH Ur Specific [place] Urine Protein Urine Glucose (UA) Urine Ketones Urine Blood Urine Nitrate Urine Bilirubin Urine Urobilinogen Ur Leukocyte Esterase Urine RBC Urine WBC Ur Squamous Epith Cells Urine Bacteria Acetaminophen IgA Blood Type Rho(D) Type Antibody Screen Direct Antiglob Test 08/07/19 08/07/19 08/07/19 03:45 10:01 10:01 WBC RBC Hgb Hct MCV MCH MCHC RDW Plt Count MPV Neut % (Auto) Lymph % (Auto) Bureau % (Auto) Eos % (Auto) Baso % (Auto) Neut # (Auto) Lymph # (Auto) Bureau # (Auto) Eos # (Auto) Baso # (Auto) Nucleated RBC % (auto) Nucleated RBCs # PT 18.30 H INR 1.46 H APTT Sodium Potassium Chloride Carbon Dioxide Anion Gap BUN Creatinine Glucose Calculated Osmolality Lactate Calcium Total Bilirubin AST ALT Alkaline Phosphatase Troponin I 6 Hour Troponin I Hi Sens Del Troponin T Baseline Troponin T 120 Minute Delta Troponin T Total Protein Albumin Globulin Urine Color Urine Appearance Urine pH Ur Specific [place] Urine Protein Urine Glucose (UA) Urine Ketones Urine Blood Urine Nitrate Urine Bilirubin Urine Urobilinogen Ur Leukocyte Esterase Urine RBC Urine WBC Ur Squamous Epith Cells Urine Bacteria Acetaminophen < 5.0 L IgA Blood Type Rho(D) Type Antibody Screen Direct Antiglob Test Negative 08/07/19 08/07/19 08/07/19 10:01 10:01 12:18 WBC RBC Hgb Hct MCV MCH MCHC RDW Plt Count MPV Neut % (Auto) Lymph % (Auto) Bureau % (Auto) Eos % (Auto) Baso % (Auto) Neut # (Auto) Lymph # (Auto) Bureau # (Auto) Eos # (Auto) Baso # (Auto) Nucleated RBC % (auto) Nucleated RBCs # PT INR APTT Sodium Potassium Chloride Carbon Dioxide Anion Gap BUN Creatinine Glucose Calculated Osmolality Lactate Calcium Total Bilirubin AST ALT Alkaline Phosphatase Troponin I 6 Hour Troponin I Hi Sens Del Troponin T Baseline 17 H Troponin T 120 Minute 15.55 H Delta Troponin T -1.45 L Total Protein Albumin Globulin Urine Color Urine Appearance Urine pH Ur Specific [place] Urine Protein Urine Glucose (UA) Urine Ketones Urine Blood Urine Nitrate Urine Bilirubin Urine Urobilinogen Ur Leukocyte Esterase Urine RBC Urine WBC Ur Squamous Epith Cells Urine Bacteria Acetaminophen IgA 336 Blood Type Rho(D) Type Antibody Screen Direct Antiglob Test 08/07/19 16:01 WBC RBC Hgb Hct MCV MCH MCHC RDW Plt Count MPV Neut % (Auto) Lymph % (Auto) Bureau % (Auto) Eos % (Auto) Baso % (Auto) Neut # (Auto) Lymph # (Auto) Bureau # (Auto) Eos # (Auto) Baso # (Auto) Nucleated RBC % (auto) Nucleated RBCs # PT INR APTT Sodium Potassium Chloride Carbon Dioxide Anion Gap BUN Creatinine Glucose Calculated Osmolality Lactate Calcium Total Bilirubin AST ALT Alkaline Phosphatase Troponin I 6 Hour 13.89 H Troponin I Hi Sens Del -3.11 L Troponin T Baseline Troponin T 120 Minute Delta Troponin T Total Protein Albumin Globulin Urine Color Urine Appearance Urine pH Ur Specific [place] Urine Protein Urine Glucose (UA) Urine Ketones Urine Blood Urine Nitrate Urine Bilirubin Urine Urobilinogen Ur Leukocyte Esterase Urine RBC Urine WBC Ur Squamous Epith Cells Urine Bacteria Acetaminophen IgA Blood Type Rho(D) Type Antibody Screen Direct Antiglob Test Cardiac Studies: No Data to Display
[2019-08-07] MEDS: ceFAZolin 1,000 mg SDV 2000 MG IVP (18:05)
[2019-08-07] MEDS: neomycin-poly-bacitracin oint 28 gm 1 APPLIC TOPICAL (18:54)
[2019-08-07] MEDS: calcium carb-vit d 600mg/400unit 1 Tablet 1 EACH PO (20:33)
[2019-08-07] MEDS: sennosides-docusate Tablet 2 TAB PO (20:34)
[2019-08-07] MEDS: HYDROcodone-acetaminophen 5-325 mg Tablet PO (20:35)
[2019-08-08] VITALS (10 sets, daily range): BP systolic 89–114; BP diastolic 54–69; PULSE 64–109; RESP 17–20; TEMP 36.7–37.2; O2SAT 90–98
[2019-08-08] MEDS: HYDROcodone-acetaminophen 5-325 mg Tablet PO ×2 (06:37→15:34)
[2019-08-08 07:03] LABS: Basophils % 0.3 %; Eosinophils # 0.1 10^3/uL (0.0-0.8); Eosinophils % 0.6 %; Lymphocytes # 1.2 10^3/uL (0.8-4.8); Lymphocytes % 13.2 %; Mean Corpuscular HGB Conc 31.3 g/dL (30.0-36.0); Mean Corpuscular Hemoglobin 29.2 pg (28.0-34.0); Mean Corpuscular Volume 93.3 fL (81-99); Mean Platelet Volume 10.8 fL (7.4-10.4); Monocytes # 0.8 10^3/uL (0.2-0.9); Monocytes % 8.7 %; Neutrophils # 7.1 10^3/uL (1.8-7.7); Neutrophils % 76.8 %; Nucleated Red Blood Cells % 0 %; Platelet Count 164 10^3/cmm (130-400); Red Blood Count 3.43 10^6/uL (4.1-5.3); Red Cell Distribution Width 14.5 % (12.1-15.1); White Blood Count 9.3 10^3/uL (4.0-10.0)
[2019-08-08 07:11] LABS: INR 1.23 (0.8-1.2)
[2019-08-08 07:23] LABS: Anion Gap 12.6 (5-19); Blood Urea Nitrogen 13 mg/dL (8-23); Carbon Dioxide 29 mmol/L (22-29); Chloride 100 mmol/L (98-107); Glucose 117 mg/dL (65-115); Magnesium 1.7 mg/dL (1.7-2.3); Osmolality Calculated 283 mOsm/kg (285-295); Potassium 3.6 mmol/L (3.5-5.1); Sodium 138 mmol/L (136-145)
--- NOTE | 2019-08-08 08:50 | P.PN_ITS ---
Subjective Subjective: Interval history: 83-year-old white female postoperative day 1 status post closed reduction with intramedullary nailing left intertrochanteric hip fracture Vitals/I&O/Wt Last Vital Signs Temp 98.4 F 08/08/19 07:41 Pulse 78 08/08/19 08:15 Resp 18 08/08/19 08:15 BP 98/58 08/08/19 07:41 Pulse Ox 96 08/08/19 08:15 08/07/19 08/08/19 08/08/19 22:59 06:59 14:59 Intake Total 150 / 1461.25 200 / 1661.25 480 / 480 Output Total 300 / 300 200 / 500 Balance -150 / 1161.25 0 / 1161.25 480 / 480 Weight last 48 hrs Weight 150 lb Physical Exam Narrative: EXAM NARRATIVE: 83-year-old white female postoperative day 1 status post IM nailing left intertrochanteric hip fracture. She is alert and cooperative. Patient is very pleasant. Lungs are clear to auscultation heart regular rhythm abdomen soft nontender no calf tenderness bilaterally. Dressings are changed. Her 3 incisions are intact without active drainage no erythema. Urinary Catheter Management^: Grimm: Cath Placed During This Visit: yes Reason for Continuing Indwelling Catheter: Acute Urinary Retention or Obstruction Urinary Catheter Date of Insertion: 08/06/19 Urinary Catheter Time of Insertion: 14:42 Data : 08/09/19 03:52 08/08/19 06:17 A&P Assessment and plan (1) Status post-operative repair of closed fracture of left hip: Pain control monitor h/h Mobilize, VTE prophylaxis Coumadin resumed monitor PT/INR, SCDs Finish postoperative antibiotics Discharge planning. Discussion was had with Dr. Gramajo today to attempt to get patient back home with her with home health. I believe that the patient does well with physical therapy this would be an excellent option for her and her who has dementia. Dressing change today incisions were intact. Patient tolerated dressing change well Status: Acute Attestations Medical Necessity Statement*: patient requires continued inpatient level care for monitoring of hemoglobin hematocrit postoperatively. She requires assistance was physical therapy. Decision needs to be made as she's able to progress with therapy if she is safe to go home or be better served with a brief episode of rehabilitation services prior to returning home. Time Spent in Patient Care: less than 15 minutes Coding Level of Care Code Acute Entertainment Musician for Chg Fwd Diagnoses Status post-operative repair of closed fracture of left hip Z98.890; Z87.81
[2019-08-08] MEDS: ferrous sulfate EC 325 mg Tablet PO ×2 (09:40→17:50)
[2019-08-08] MEDS: metoprolol succinate ER (24 HR) 100 mg Tablet PO (09:41)
[2019-08-08] MEDS: pantoprazole DR 40 mg Tablet PO (09:41)
[2019-08-08] MEDS: multivitamin therapeutic Tablet 1 TAB PO (09:41)
[2019-08-08] MEDS: calcium carb-vit d 600mg/400unit 1 Tablet 1 EACH PO ×2 (09:41→17:50)
[2019-08-08] MEDS: cholecalciferol (vitamin D3) 1,000 unit Tablet 1000 UNIT PO (09:41)
[2019-08-08] MEDS: sennosides-docusate Tablet 2 TAB PO ×2 (09:41→17:50)
[2019-08-08] MEDS: warfarin 5 mg Tablet 2 MG PO (13:39)
--- NOTE | 2019-08-08 14:55 | P.PN_ITS ---
Subjective Subjective: Interval history: Patient doing well today postoperatively. She had no further episodes of significant concern after the reaction to transfusion. Pain is better. She is already eager to get up. We talked a bit about discharge planning. Her really cannot stay alone for very long according to her. Does not have any family that can stay with him although has a friend that is helping out at the moment. She definitely does not have anyone to stay with him long-term. Should she require placement for rehabilitation, he will likely need placement along with her. We talked about home with home health but her is not really strong enough to be able to assist in her needs at this time. She may have funds to pay for in-home services temporarily while she recovers her strength. I discussed this with vp digital marketing social media and crm as if she is doing well enough to consider home with home health trying to get some other help in the home around the clock would be ideal from her point of view. Vitals/I&O/Wt Last Vital Signs Temp 98.9 F 08/08/19 11:21 Pulse 108 H 08/08/19 11:21 Resp 18 08/08/19 11:21 BP 114/69 08/08/19 11:21 Pulse Ox 98 08/08/19 11:21 08/07/19 08/08/19 08/08/19 22:59 06:59 14:59 Intake Total 150 / 1461.25 200 / 1661.25 530 / 530 Output Total 300 / 300 200 / 500 400 / 400 Balance -150 / 1161.25 0 / 1161.25 130 / 130 Physical Exam Const: OTHER: Awake and alert, no acute distress, looks much better and more comfortable HENMT: OTHER: Mucous membranes moist, face symmetric Eye: OTHER: Extraocular movements intact Neck/C-Spine: OTHER: Supple Resp: OTHER: Clear to auscultation bilaterally Cardio: OTHER: Regular rhythm GI: OTHER: Abdomen soft, nontender : OTHER: Grimm in place Extremity: NARRATIVE EXTREMITY EXAM: Surgical dressing clean dry and intact, moving feet Neuro: OTHER: Face symmetric, speech clear Psych: OTHER: Alert and oriented Skin: OTHER: Rash from yesterday is gone Urinary Catheter Management^: Girmm: Cath Placed During This Visit: yes Reason for Continuing Indwelling Catheter: Acute Urinary Retention or Obstruction Urinary Catheter Date of Insertion: 06/11/20 Urinary Catheter Time of Insertion: 14:42 Data : 08/08/19 06:17 08/08/19 06:17 A&P Assessment and plan (1) Transfusion reaction: Anaphylactic reaction with FFP, normal IgA level, will require pretreatment with Benadryl and Tylenol should she ever require transfusion again. Hemolytic transfusion reaction work-up was negative Status: Acute Qualifiers: Encounter type: initial encounter Qualified Code(s): T80.92XA - Unspecified transfusion reaction, initial encounter (2) Fall from ground level: Secondary to a cow bumping into her Status: Acute (3) Closed intertrochanteric fracture of left hip: Postop day 1 gamma nail pinning, weightbearing as tolerated Status: Acute Qualifiers: Encounter type: initial encounter Fracture alignment: nondisplaced Qualified Code(s): S72.145A - Nondisplaced intertrochanteric fracture of left femur, initial encounter for closed fracture (4) Chronic anticoagulation: Chronically on Coumadin, therapeutic INR at 3.0 at admission, for surgery. Status: Chronic (5) Atrial fibrillation: Chronically on beta-blockade. During transfusion reaction with A. fib with RVR. Status: Chronic Qualifiers: Atrial fibrillation type: paroxysmal Qualified Code(s): I48.0 - Paroxysmal atrial fibrillation (6) Hypertension: Chronically on chlorthalidone with potassium supplementation. Currently held due to low blood pressures Status: Chronic Qualifiers: Hypertension type: essential hypertension Qualified Code(s): I10 - Essential (primary) hypertension (7) Pacemaker: Pacemaker check > device functioning correctly, 3 atrial arrhythmia episodes since 04/16 including today. Indicates ventricular rate is greater than 100 approximately 20% of the time. Status: Chronic (8) TIA (transient ischemic attack): History of 2 prior TIAs but no residual symptoms Status: Chronic Additional A&P Information Some microscopic hematuria noted, could be related to Grimm placement in the setting of therapeutic INR Reactive leukocytosis, resolved To work with PT today Coumadin has been restarted Remains off chlorthalidone and potassium pressures On home beta-blockade Anticipate Grimm catheter removal tomorrow Coumadin provides DVT prophylaxis Laxative therapy with pain control Discussed with managers about helping patient see she can get in-home services so she could go home with home health and be with her who cannot stay alone. Dr. Montes is on board with this plan if it can be so arranged. Supportive care otherwise Full code Attestations Medical Necessity Statement*: Requires ongoing inpatient stay for usual postoperative treatment in the setting of hip fracture. Have started disposition planning. Coding Level of Care Code Acute Hcc Coders for Chg Fwd Diagnoses Transfusion reaction T80.92XA Encounter type: initial encounter Fall from ground level W18.30XA Closed intertrochanteric fracture of left hip S72.145A Encounter type: initial encounter Fracture alignment: nondisplaced Chronic anticoagulation Z79.01 Atrial fibrillation I48.0 Atrial fibrillation type: paroxysmal Hypertension I10 Hypertension type: essential hypertension Pacemaker Z95.0 TIA (transient ischemic attack) G45.9
[2019-08-08] MEDS: ondansetron 2 mg/ML SDV 2 mL 4 MG IVP (17:41)
--- NOTE | 2019-08-08 18:07 | PC.NURSE ---
PATIENT SITTING ON EDGE OF BED. ASSISTED PATIENT BACK TO SEMIFOWLER POSITION WITH HELP OF LAW ENFORCEMENT INSTRUCTOR. SKIN SHEARING ON BUTTOCK LEFT CHEEK NOTED. CLEANSED WITH NS, COVERED WITH OPTIFOAM AND POSTITIONED PATIENT ON RIGHT SIDE WITH PILLOW UNDER LEFT BUTTOCK AND KNEE BETWEEN PILLOW AND ENCOURAGED PATIENT TO TURN COUGH AND DEEP BREATH AND USE IS Q1HOUR. PATIENT AGREED AND VOICED UNDERSTANDING. TURNERW, JENN
[2019-08-08 21:31] LABS: Glucose Point of Care 278 mg/dL (70-110)
[2019-08-09] VITALS (7 sets, daily range): BP systolic 95–105; BP diastolic 52–64; PULSE 62–104; RESP 16–18; TEMP 36.7–37.6; O2SAT 92–98
[2019-08-09 04:30] LABS: Basophils % 0.3 %; Eosinophils % 0.4 %; Hematocrit 29.6 % (37.0-47.0); Hemoglobin 9.3 g/dL (11.5-15.3); Lymphocytes # 1.4 10^3/uL (0.8-4.8); Lymphocytes % 13.9 %; Mean Corpuscular HGB Conc 31.4 g/dL (30.0-36.0); Mean Corpuscular Volume 92.2 fL (81-99); Mean Platelet Volume 10.7 fL (7.4-10.4); Monocytes # 0.9 10^3/uL (0.2-0.9); Monocytes % 9.1 %; Neutrophils # 7.8 10^3/uL (1.8-7.7); Neutrophils % 75.7 %; Nucleated Red Blood Cells % 0 %; Platelet Count 159 10^3/cmm (130-400); Red Blood Count 3.21 10^6/uL (4.1-5.3); Red Cell Distribution Width 14.1 % (12.1-15.1); White Blood Count 10.3 10^3/uL (4.0-10.0)
[2019-08-09 04:36] LABS: INR 1.21 (0.8-1.2)
--- NOTE | 2019-08-09 07:03 | PM.PN ---
Subjective Subjective: Interval history: 83-year-old white female postoperative day 2 status post close reduction with intramedullary nailing left intertrochanteric hip fracture. Patient without significant points of pain. She's participating in physical therapy. Vitals/I&O/Wt Last Vital Signs Temp 99.7 F H 08/09/19 05:03 Pulse 73 08/09/19 05:03 Resp 18 08/09/19 05:03 BP 99/58 08/09/19 05:03 Pulse Ox 95 08/09/19 05:03 08/08/19 08/09/19 08/09/19 22:59 06:59 14:59 Intake Total 480 / 1010 Balance 480 / 610 Physical Exam Narrative: EXAM NARRATIVE: 83-year-old white female in no acute distress. She is alert and cooperative. Lungs are clear to auscultation Heart is regular rate rhythm abdomen soft nontender dressing left hip and thigh clean dry and intact No calf tenderness bilaterally Urinary Catheter Management^: Grimm: Cath Placed During This Visit: yes, but has since been removed by the nurse Reason for Continuing Indwelling Catheter: Perioperative Use in Selected Surgeries Urinary Catheter Date of Insertion: 08/06/19 Urinary Catheter Time of Insertion: 14:42 Date Urinary Catheter Removed: 08/09/19 Time Urinary Catheter Discontinued: 06:15 Data : 08/10/19 04:01 08/08/19 06:17 A&P Assessment and plan (1) Status post-operative repair of closed fracture of left hip: Increase patient's Coumadin today to 3 mg as INR 1.21 Continue to monitor hemoglobin and hematocrit if patient becomes symptomatic recommend transfusion of at least one unit of packed red blood cells Mobilize Discharge planning Status: Acute Attestations Medical Necessity Statement*: discharge planning in progress. Discharge home with home health disfavored. Time Spent in Patient Care: less than 15 minutes Coding Level of Care Code Established Pt Acute Railway Signal Operator for Davonte Fwpierre Patient Type Established Diagnoses Status post-operative repair of closed fracture of left hip Z98.890; Z87.81 Comment patient is in postop global with me
[2019-08-09] MEDS: ondansetron 2 mg/ML SDV 2 mL 4 MG IVP (08:37)
[2019-08-09] MEDS: ferrous sulfate EC 325 mg Tablet PO ×2 (09:15→17:45)
[2019-08-09] MEDS: sennosides-docusate Tablet 2 TAB PO ×2 (09:15→17:45)
[2019-08-09] MEDS: multivitamin therapeutic Tablet 1 TAB PO (09:15)
[2019-08-09] MEDS: HYDROcodone-acetaminophen 5-325 mg Tablet PO ×3 (09:16→21:52)
[2019-08-09] MEDS: calcium carb-vit d 600mg/400unit 1 Tablet 1 EACH PO ×2 (09:16→17:45)
[2019-08-09] MEDS: metoprolol succinate ER (24 HR) 100 mg Tablet PO (09:16)
[2019-08-09] MEDS: cholecalciferol (vitamin D3) 1,000 unit Tablet 1000 UNIT PO (09:16)
[2019-08-09] MEDS: pantoprazole DR 40 mg Tablet PO (09:16)
--- NOTE | 2019-08-09 14:44 | PC.NURSE ---
BLADDER SCANNED AT 1340 AND SHOWED 249ML. PATIENT ENCOURAGED TO DRINK WATER. SMW, SHIP CAPTAIN
--- NOTE | 2019-08-09 14:45 | PC.NURSE ---
PATIENT URINATED VIA BSC WITH PT ASSISTANCE MEASURED OUTPUT OF 250ML. SMW, MATERIALS PLANNER/PRODUCTION PLANNER
--- NOTE | 2019-08-09 14:48 | PC.NURSE ---
ADDENDUM TO PREVIOUS VOID NOTE: pATIENTS URINE NOTED TO BE LIGHT SHARDA COLORED AND CLEAR. SMW, RESTAURANT CULINARY MANAGER
[2019-08-09] MEDS: warfarin 3 mg Tablet PO (14:52)
--- NOTE | 2019-08-09 21:16 | P.PN_ITS ---
Subjective Subjective: Interval history: Patient has had some challenges with therapy secondary to pain in her knees. She has been told in the past that she needs replacement but opted not to pursue them. Pain at the hip is been controlled pain in her knees is bothering her. She has recently had a pain pill and is quite sleepy. Awakens to answer questions however. No further episodes of ra sh, nausea or vomiting or acute cardiopulmonary symptoms. Vitals/I&O/Wt Last Vital Signs Temp 98.1 F 08/09/19 16:35 Pulse 94 08/09/19 16:35 Resp 16 08/09/19 16:35 BP 105/57 08/09/19 16:35 Pulse Ox 92 08/09/19 16:35 08/09/19 08/09/19 08/09/19 06:59 14:59 22:59 Intake Total 240 / 240 Output Total 250 / 250 200 / 450 Balance -10 / -10 -200 / -210 Physical Exam Const: OTHER: Sleepy today but awakens. Has had recent pain medication. HENMT: OTHER: Pupils equally reactive, mucous membranes moist Eye: OTHER: Extraocular movements intact Neck/C-Spine: OTHER: Supple Resp: OTHER: Clear to auscultation bilaterally Cardio: OTHER: Regular rhythm GI: OTHER: Abdomen soft, nontender : OTHER: Grimm removed Extremity: NARRATIVE EXTREMITY EXAM: Surgical dressing remains clean dry and intact. SCDs in place Neuro: OTHER: Face symmetric, speech clear, moves all extremities Psych: OTHER: Sleepy but awakens to answer questions briefly, oriented to person place and situation Skin: OTHER: Chronic skin changes without evident rash Urinary Catheter Management^: Grimm: Cath Placed During This Visit: yes, but has since been removed by the nurse Reason for Continuing Indwelling Catheter: Perioperative Use in Selected Surgeries Urinary Catheter Date of Insertion: 08/06/19 Urinary Catheter Time of Insertion: 14:42 Date Urinary Catheter Removed: 08/09/19 Time Urinary Catheter Discontinued: 06:15 Data : 08/09/19 03:52 08/08/19 06:17 A&P Assessment and plan (1) Status post-operative repair of closed fracture of left hip: Postop day 2 gamma nail pinning, weightbearing as tolerated Status: Acute (2) Closed intertrochanteric fracture of left hip: Status post surgical repair Status: Acute Qualifiers: Encounter type: initial encounter Fracture alignment: nondisplaced Qualified Code(s): S72.145A - Nondisplaced intertrochanteric fracture of left femur, initial encounter for closed fracture (3) Transfusion reaction: Anaphylactic reaction with FFP, normal IgA level, will require pretreatment with Benadryl and Tylenol should she ever require transfusion again. Hemolytic transfusion reaction work-up was negative. No recurrent similar symptoms Status: Resolved Qualifiers: Encounter type: initial encounter Qualified Code(s): T80.92XA - Unspecified transfusion reaction, initial encounter (4) Fall from ground level: Secondary to a cow bumping into her Status: Acute (5) Chronic anticoagulation: Chronically on Coumadin, therapeutic INR at 3.0 at admission, reversed for surgery. Coumadin has been restarted. Status: Chronic (6) Atrial fibrillation: Chronically on beta-blockade. During transfusion reaction with A. fib with RVR, otherwise has been rate controlled. Status: Chronic Qualifiers: Atrial fibrillation type: paroxysmal Qualified Code(s): I48.0 - Paroxy smal atrial fibrillation (7) Hypertension: Chronically on chlorthalidone with potassium supplementation. Currently held due to low blood pressures. Status: Chronic Qualifiers: Hypertension type: essential hypertension Qualified Code(s): I10 - Essential (primary) hypertension (8) Pacemaker: Pacemaker check this admission> device functioning correctly, 3 atrial arrhythmia episodes since 04/16 including today. Indicates ventricular rate is greater than 100 approximately 20% of the time. Status: Chronic (9) TIA (transient ischemic attack): History of 2 prior TIAs but no residual symptoms Status: Chronic Additional A&P Information Some microscopic hematuria noted, could be related to Grimm placement in the setting of therapeutic INR Reactive leukocytosis, resolved Continue PT Pain is been controlled thus far, I do note that she is a bit sleepy after receiving it so may have to adjust dosage Coumadin has been restarted INR and CBC in the morning Continue to hold home chlorthalidone and potassium due to soft blood pressures On home beta-blockade Grimm removed today Coumadin provides DVT prophylaxis Laxative therapy with pain control After working with physical therapy, plan has changed to skilled facility rehabilitation. Case management is working on placement to [facility]. Patient will need pretreatment with Benadryl for any future transfusion requirements secondary to anaphylactic reaction with FFP Supportive care otherwise Full code Attestations Medical Necessity Statement*: Requires ongoing inpatient stay for continued management post hip fracture repair with plan for skilled placement. Coding Level of Care Code Acute Block Sawyer for Davonte Marcos Diagnoses Status post-operative repair of closed fracture of left hip Z98.890; Z87.81 Closed intertrochanteric fracture of left hip S72.145A Encounter type: initial encounter Fracture alignment: nondisplaced Transfusion reaction T80.92XA Encounter type: initial encounter Fall from ground level W18.30XA Chronic anticoagulation Z79.01 Atrial fibrillation I48.0 Atrial fibrillation type: paroxysmal Hypertension I10 Hypertension type: essential hypertension Pacemaker Z95.0 TIA (transient ischemic attack) G45.9
[2019-08-09 21:17] LABS: Glucose Point of Care 130 mg/dL (70-110)
[2019-08-10] VITALS: BP 116/67; BP 94/57; PULSE 80; PULSE 96; RESP 18; RESP 20; TEMP 36.8; TEMP 37.2; O2SAT 93; O2SAT 99
[2019-08-10 04:00] VITALS: BP 104/58; PULSE 81; RESP 18; TEMP 37.1; O2SAT 96
[2019-08-10] MEDS: HYDROcodone-acetaminophen 5-325 mg Tablet PO (04:15)
[2019-08-10 04:44] LABS: Basophils % 0.1 %; Eosinophils # 0.1 10^3/uL (0.0-0.8); Eosinophils % 1.1 %; Hematocrit 26.7 % (37.0-47.0); Hemoglobin 8.4 g/dL (11.5-15.3); Lymphocytes # 1.1 10^3/uL (0.8-4.8); Lymphocytes % 12.2 %; Mean Corpuscular HGB Conc 31.5 g/dL (30.0-36.0); Mean Corpuscular Hemoglobin 28.7 pg (28.0-34.0); Mean Corpuscular Volume 91.1 fL (81-99); Mean Platelet Volume 10.6 fL (7.4-10.4); Monocytes # 0.7 10^3/uL (0.2-0.9); Monocytes % 7.8 %; Neutrophils # 6.9 10^3/uL (1.8-7.7); Neutrophils % 78.1 %; Nucleated Red Blood Cells % 0 %; Platelet Count 168 10^3/cmm (130-400); Red Blood Count 2.93 10^6/uL (4.1-5.3); Red Cell Distribution Width 13.8 % (12.1-15.1); White Blood Count 8.8 10^3/uL (4.0-10.0)
[2019-08-10 04:51] LABS: INR 1.18 (0.8-1.2)
[2019-08-10 07:51] VITALS: BP 113/67; PULSE 95; RESP 18; TEMP 36.8; O2SAT 94
--- NOTE | 2019-08-10 08:18 | P.PN_ITS ---
Subjective Subjective: Interval history: 83-year-old white female postoperative day 3 status post close reduction with intramedullary nailing using a cephalo- medullary nail with proximal and distal interlocking of her left intertrochanteric hip fracture. Plan with discussion with Dr. Gramajo was to attempt to discharge the patient home with home health so that she could be at home with her who has early dementia. Vitals/I&O/Wt Last Vital Signs Temp 98.3 F 08/10/19 07:51 Pulse 95 08/10/19 07:51 Resp 18 08/10/19 07:51 BP 113/67 08/10/19 07:51 Pulse Ox 94 08/10/19 07:51 08/09/19 08/10/19 08/10/19 22:59 06:59 14:59 Output Total 400 / 650 400 / 1050 Balance -400 / -410 -400 / -810 Physical Exam Narrative: EXAM NARRATIVE: 83-year-old white female in no acute distress. She is alert and cooperative. Lungs are clear to auscultation no wheezes or rails. Heart is regular rate rhythm. No JVD Abdomen soft nontender Incisions about left hip and thigh are examined. Jaime are in place no active bleeding. Dressing changed incision line rinse with saline. Anabolic ointment applied. New Telfa dressings applied. No calf tenderness bilaterally Urinary Catheter Management^: Grimm: Cath Placed During This Visit: yes, but has since been removed by the nurse Reason for Continuing Indwelling Catheter: Perioperative Use in Selected Surgeries Urinary Catheter Date of Insertion: 08/06/19 Urinary Catheter Time of Insertion: 14:42 Date Urinary Catheter Removed: 08/09/19 Time Urinary Catheter Discontinued: 06:15 Data : 08/11/19 12:44 08/11/19 04:19 Other Labs: 08/10/2019 hemoglobin 8.4 INR 1.18 A&P Assessment and plan (1) Status post-operative repair of closed fracture of left hip: Warfarin increased to 4 mg daily continue need to monitor INR. Patient was greater than INR of 3 on 5 mg daily Status: Acute (2) Chronic anticoagulation: Status: Chronic Attestations Medical Necessity Statement*: per medical team Coding Level of Care Code Acute Drawing Instructor for Davonte Fwpierre Diagnoses Status post-operative repair of closed fracture of left hip Z98.890; Z87.81 Chronic anticoagulation Z79.01
[2019-08-10] MEDS: ferrous sulfate EC 325 mg Tablet PO ×2 (08:27→17:55)
[2019-08-10] MEDS: calcium carb-vit d 600mg/400unit 1 Tablet 1 EACH PO ×2 (08:28→17:53)
[2019-08-10] MEDS: cholecalciferol (vitamin D3) 1,000 unit Tablet 1000 UNIT PO (08:28)
[2019-08-10] MEDS: metoprolol succinate ER (24 HR) 100 mg Tablet PO (08:28)
[2019-08-10] MEDS: sennosides-docusate Tablet 2 TAB PO ×2 (08:28→17:53)
[2019-08-10] MEDS: multivitamin therapeutic Tablet 1 TAB PO (08:28)
[2019-08-10] MEDS: pantoprazole DR 40 mg Tablet PO (08:28)
--- NOTE | 2019-08-10 08:58 | PC.SOCIAL ---
IMM was completed @ 1200 hrs.
[2019-08-10 11:25] VITALS: BP 118/60; PULSE 64; RESP 20; TEMP 36.8; O2SAT 95
--- NOTE | 2019-08-10 11:42 | PM.PN ---
Subjective Subjective: Interval history: No acute events overnight. Subjective day 3. On examination today patient is lying comfortably in bed. Complaining of nausea. Patient states she has been nauseous since arrival to the hospital. Denies of having any vomiting, chest pain, difficulty in breathing, headache, dizziness, weakness in any of her arms. She complains of pain in her hip on trying to move which precipitates the nausea. Patient states she has not had a bowel movement since arrival to the hospital. Patient has not had her breakfast today morning because of feeling nauseous. Vitals/I&O/Wt Last Vital Signs Temp 98.3 F 08/10/19 11:25 Pulse 64 08/10/19 11:25 Resp 20 H 08/10/19 11:25 BP 118/60 08/10/19 11:25 Pulse Ox 95 08/10/19 11:25 08/09/19 08/10/19 08/10/19 22:59 06:59 14:59 Intake Total 300 / 300 Output Total 400 / 650 400 / 1050 Balance -400 / -410 -400 / -810 300 / 300 Physical Exam Narrative: EXAM NARRATIVE: General: No acute distress, AO x3, dehydrated HEENT: PERRLA, pupils bilaterally equal and reactive Chest: Normal vesicular breath sounds, no added sounds, equal good air entry bilaterally CVS: S1-S2 irregularly irregular, no murmurs, no tachycardia, no gallops, no rubs Abdomen: Soft, nontender, no organomegaly, bowel sounds present Neuro: No focal deficits, no facial deformity, AO x3, power 5/5 in all limbs Extremities: Healthy surgical bandage present, without any drainage of blood. Urinary Catheter Management^: Grimm: Cath Placed During This Visit: yes, but has since been removed by the nurse Reason for Continuing Indwelling Catheter: Perioperative Use in Selected Surgeries Urinary Catheter Date of Insertion: 08/06/19 Urinary Catheter Time of Insertion: 14:42 Date Urinary Catheter Removed: 08/09/19 Time Urinary Catheter Discontinued: 06:15 Data : 08/10/19 04:01 08/10/19 12:03 A&P Assessment and plan (1) Fall from ground level: Secondary to a cow bumping into her Status: Acute (2) Closed intertrochanteric fracture of left hip: Status post surgical repair Status: Acute Qualifiers: Encounter type: initial encounter Fracture alignment: nondisplaced Qualified Code(s): S72.145A - Nondisplaced intertrochanteric fracture of left femur, initial encounter for closed fracture (3) Status post-operative repair of closed fracture of left hip: Postop day 2 gamma nail pinning, weightbearing as tolerated Status: Acute (4) Transfusion reaction: Anaphylactic reaction with FFP, normal IgA level, will require pretreatment with Benadryl and Tylenol should she ever require transfusion again. Hemolytic transfusion reaction work-up was negative. No recurrent similar symptoms Status: Resolved Qualifiers: Encounter type: initial encounter Qualified Code(s): T80.92XA - Unspecified transfusion reaction, initial encounter (5) Chronic anticoagulation: Chronically on Coumadin, therapeutic INR at 3.0 at admission, reversed for surgery. Coumadin has been restarted. Status: Chronic (6) Atrial fibrillation: Chronically on beta-blockade. During transfusion reaction with A. fib with RVR, otherwise has been rate controlled. Status: Chronic Qualifiers: Atrial fibrillation type: paroxysmal Qualified Code(s): I48.0 - Paroxysmal atrial fibrillation (7) Hypertension: Status: Chronic Qualifiers: Hypertension type: essential hypertension Qualified Code(s): I10 - Essential (primary) hypertension (8) Pacemaker: Pacemaker check this admission> device functioning correctly, 3 atrial arrhythmia episodes since 04/16 including today. Indicates ventricular rate is greater than 100 approximately 20% of the time. Status: Chronic (9) TIA (transient ischemic attack): History of 2 prior TIAs but no residual symptoms Status: Chronic (10) COVID-19 ruled out: Status: Acute Additional A&P Information Left hip fracture: Postop day 3: Physical therapy, anticoagulation, perioperative antibiotics as per Dr. Montes. Weightbearing as per Dr. Montes. Patient is on hydrocodone 1 to 2 tablets every 4 hours. She states she is nauseous because of the pain medication. We will decrease it to 1 tablet every 6 hours as needed and start her on Tylenol. Afib: On chronic Anticoagulation: Rate controlled at present. C/w home dose of lopressor. Subtherapeutic INR: Chronically is on warfarin 4 mg daily at home. Subtherapeutic INR most likely because was withheld for surgery. We will give 6 mg of warfarin today. Patient will most likely need 6 mg warfarin for 3 days and after that back to 4 mg. Hypertension: Blood pressure under control. We will continue to monitor. Nausea: Most likely because of constipation. Patient is on bowel regimen. Will start on prune juice as well. LFTs have not been checked since admission. Will check CMP, proBNP. If CMP is deranged will go for further abdominal imaging. We will add Carafate before meals and at bedtime. Start normal saline at 50 cc/h. Have encouraged patient to increase oral intake as well. Zofran as needed. Anemia: Hemoglobin 8.4. Continue with home dose of iron oral supplementation. Discharge planning: Patient would need SNF placement. [facility] has accepted. [facility] is requesting for COVID-19 to be ruled out prior to discharge. Patient will need pretreatment with Benadryl for any future transfusion requirements secondary to anaphylactic reaction with FFP Supportive care otherwise Full code Attestations Medical Necessity Statement*: Postop care, subtherapeutic INR, COVID-19 to be ruled out prior to safe discharge Time Spent in Patient Care: Greater than 35 minutes Coding Level of Care Code Acute [employer] Support Planner for Chg Fwd Diagnoses Fall from ground level W18.30XA Closed intertrochanteric fracture of left hip S72.145A Encounter type: initial encounter Fracture alignment: nondisplaced Status post-operative repair of closed fracture of left hip Z98.890; Z87.81 Transfusion reaction T80.92XA Encounter type: initial encounter Chronic anticoagulation Z79.01 Atrial fibrillation I48.0 Atrial fibrillation type: paroxysmal Hypertension I10 Hypertension type: essential hypertension Pacemaker Z95.0 TIA (transient ischemic attack) G45.9 COVID-19 ruled out Z03.818
[2019-08-10] MEDS: ondansetron 4 MG Tablet PO (11:44)
[2019-08-10] MEDS: sodium chloride 0.9% 1,000 ML 50 ML IV (11:57)
--- NOTE | 2019-08-10 11:59 | PC.NURSE ---
in room with pt when she stated she all of a sudden had a blind spot to her L eye. 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 pt alert and oriented. Dr. Nuñez notified, no new orders.
[2019-08-10 12:45] LABS: Alanine Aminotransferase 9 U/L (0-33); Alkaline Phosphatase 84 IU/L (35-105); Anion Gap 12.6 (5-19); Aspartate Amino Transferase 26 U/L (0-32); Blood Urea Nitrogen 22 mg/dL (8-23); Calcium 9.2 mg/dL (8.5-10.5); Carbon Dioxide 30 mmol/L (22-29); Chloride 94 mmol/L (98-107); Globulin 2.9 g/dL (1.3-4.6); Glucose 127 mg/dL (65-115); NT Pro B Type Natriuretic Pept 2247 pg/mL (0-450); Osmolality Calculated 274 mOsm/kg (285-295); Potassium 3.6 mmol/L (3.5-5.1); Sodium 133 mmol/L (136-145); Total Bilirubin 1.1 mg/dL (0.15-1.2); Total Protein 5.9 g/dL (6.6-8.7)
[2019-08-10 15:30] VITALS: BP 118/71; PULSE 83; RESP 18; TEMP 37.3; O2SAT 94
--- NOTE | 2019-08-10 16:34 | PC.OT ---
OT tx attempted. Pt reports being cold and nauseated . She declines out of bed or bed level therapy activities at this time stating maybe later . Therapist to attempt at later time if possible.
[2019-08-10] MEDS: sucralfate 1 gm/10 mL Oral Liq UDC PO ×2 (17:54→21:18)
[2019-08-10] MEDS: warfarin 3 mg Tablet 6 MG PO (18:15)
[2019-08-10 19:46] VITALS: BP 106/68; PULSE 98; RESP 17; TEMP 36.5; O2SAT 90
[2019-08-11 04:00] VITALS: BP 111/72; PULSE 89; RESP 17; TEMP 36.7; O2SAT 93
[2019-08-11 05:39] LABS: Basophils % 0.5 %; Eosinophils # 0.2 10^3/uL (0.0-0.8); Eosinophils % 2.6 %; Hematocrit 37.3 % (37.0-47.0); Hemoglobin 12.2 g/dL (11.5-15.3); Lymphocytes # 0.7 10^3/uL (0.8-4.8); Lymphocytes % 10.7 %; Mean Corpuscular HGB Conc 32.7 g/dL (30.0-36.0); Mean Corpuscular Hemoglobin 29.6 pg (28.0-34.0); Mean Corpuscular Volume 90.5 fL (81-99); Monocytes # 0.5 10^3/uL (0.2-0.9); Monocytes % 7.6 %; Neutrophils # 4.8 10^3/uL (1.8-7.7); Neutrophils % 77.9 %; Nucleated Red Blood Cells % 0 %; Platelet Count 124 10^3/cmm (130-400); Red Blood Count 4.12 10^6/uL (4.1-5.3); Red Cell Distribution Width 14.2 % (12.1-15.1); White Blood Count 6.1 10^3/uL (4.0-10.0)
[2019-08-11 05:57] LABS: Alanine Aminotransferase 10 U/L (0-33); Albumin Level 2.8 g/dL (3.5-5.2); Alkaline Phosphatase 94 IU/L (35-105); Anion Gap 15.9 (5-19); Blood Urea Nitrogen 19 mg/dL (8-23); Calcium 8.6 mg/dL (8.5-10.5); Carbon Dioxide 27 mmol/L (22-29); Chloride 96 mmol/L (98-107); Globulin 2.3 g/dL (1.3-4.6); Glucose 100 mg/dL (65-115); Osmolality Calculated 277 mOsm/kg (285-295); Potassium 3.9 mmol/L (3.5-5.1); Sodium 135 mmol/L (136-145); Total Bilirubin 1.1 mg/dL (0.15-1.2); Total Protein 5.1 g/dL (6.6-8.7)
[2019-08-11 06:16] LABS: Aspartate Amino Transferase 29 U/L (0-32); Slide Review Slide Review Perform
[2019-08-11 06:25] LABS: INR 1.15 (0.8-1.2)
[2019-08-11 07:27] VITALS: BP 96/55; PULSE 95; RESP 18; TEMP 36.9; O2SAT 96
[2019-08-11] MEDS: ferrous sulfate EC 325 mg Tablet PO (09:07)
[2019-08-11] MEDS: metoprolol succinate ER (24 HR) 100 mg Tablet PO (09:07)
[2019-08-11] MEDS: calcium carb-vit d 600mg/400unit 1 Tablet 1 EACH PO (09:07)
[2019-08-11] MEDS: acetaminophen 325 mg Tablet 650 MG PO (09:07)
[2019-08-11] MEDS: pantoprazole DR 40 mg Tablet PO (09:07)
[2019-08-11] MEDS: multivitamin therapeutic Tablet 1 TAB PO (09:07)
[2019-08-11] MEDS: sennosides-docusate Tablet 2 TAB PO (09:07)
[2019-08-11] MEDS: cholecalciferol (vitamin D3) 1,000 unit Tablet 1000 UNIT PO (09:07)
[2019-08-11] MEDS: sodium chloride 0.9% 1,000 ML 50 ML IV (09:08)
[2019-08-11] MEDS: sucralfate 1 gm/10 mL Oral Liq UDC PO ×2 (09:10→12:26)
--- NOTE | 2019-08-11 11:46 | PC.CHAP ---
Pastoral Care Encounter/Spiritual Assessment Type of Contact [] Declined timber killer visit [] Patient/Family/Request visit [] Outpatient visit [] Follow-up visit [] Physician referral [] Code/Alert [X] Routine visit [] Staff referral [] Actively dying [] Patient sleeping [] Family support [] [] Out of room [] Palliative care [] [X] Receiving care in room [] Pre-surgical visit [] Trauma [] Long length of stay [] ICU visit [] Other: Relational/Emotional Strength [x] Patient feels connected with others/family/visitors/staff [] Distress [] Loneliness/isolation [] Abandonment Spirituality of Patient [x] Person of Sandhya [] Attends Uatsdin of their Sandhya [x] Believes in Prayer [] Reads Bible or Temple materials [] There are Spiritual issues to be addressed Economics Department Chair Interventions [x] Prayer [x] Active listening [x] Spiritual/emotional support [] Crisis/trauma care [x] Spiritual counseling [] Bereavement support [] Provided bereavement packet [] Provided Bible/devotional materials [] Provided toy/stuffed animal, coloring book to patient or family member [] Provided Communion [] Anointing/[place] [] Salvation [x] Completed spiritual assessment [] Other: Impact on Illness or Injury [] Angry [] Fearful [] Anxious [] Often cries [] Exhaustion [] Unable to work [] Unable to attend anglican [] Unable to walk/stand [] Unable to read [] Unable to drive [] Unable to eat/drink [] Unable to sleep [] Unable to be with family [] Patient intubated [] Other: Summary TRAUMATIC HIP INJURY, POSSATIVE has a good attitude, not sure about recovery, wants to go home to family Time spent with patient 10 mins
[2019-08-11 12:00] VITALS: BP 111/64; PULSE 72; RESP 18; TEMP 36.4; O2SAT 96
--- NOTE | 2019-08-11 12:38 | P.DS_ITS ---
Discharge Providers Date of Admission: 08/06/19 13:00 Date of Discharge: August 11, 2019 Attending Provider at Admission: Paola Gramajo MD Attending Provider at Discharge: Rob Pappas MD Consults: Ortho: Dr. Montes Primary Care Provider: Clarence Mendieta MD Diagnoses at Discharge Discharge Diagnosis (1) Fall from ground level: Status: Acute Problem details: Secondary to a cow (2) Closed intertrochanteric fracture of left hip: Status: Acute Qualifiers: Encounter type: initial encounter Fracture alignment: nondisplaced Qualified Code(s): S72.145A - Nondisplaced intertrochanteric fracture of left femur, initial encounter for closed fracture (3) Status post-operative repair of closed fracture of left hip: Status: Acute (4) Transfusion reaction: Status: Resolved Qualifiers: Encounter type: initial encounter Qualified Code(s): T80.92XA - Unspecified transfusion reaction, initial encounter (5) Chronic anticoagulation: Status: Chronic Problem details: Coumadin (6) Atrial fibrillation: Status: Chronic Qualifiers: Atrial fibrillation type: paroxysmal Qualified Code(s): I48.0 - Paroxysmal atrial fibrillation (7) Hypertension: Status: Chronic Qualifiers: Hypertension type: essential hypertension Qualified Code(s): I10 - Essential (primary) hypertension (8) Pacemaker: Status: Chronic (9) TIA (transient ischemic attack): Status: Chronic Problem details: X2 (10) COVID-19 ruled out: Status: Acute Reason for Visit Reason for Visit: TRAUMATIC HIP INJURY Hospital Course Discharge Summary: Khushi Dolan is a 83 year old female with past medical history of atrial fibrillation, hypertension, pacemaker, TIA twice who presented to hospital on August 06, 2019 and who is quite active still. 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 One in animals, which she assumed was around 800 pounds, bumped into her and she fell on the ground near the water trough. She landed on her left hip. Almost instantly she realized that she had probably fractured her hip. She told her to go call for an ambulance. She was brought in and ultimately found to have a displaced left intertrochanteric hip fracture. This was purely a cow versus human situation with no preceding symptoms otherwise. Patient denies any previous issues with anesthesia. No recent chest pain or difficulty breathing when taking care of her ADLs or animals. She is most concerned currently about how quickly she will recover and be able to get back to doing what she usually does. Patient was seen by orthopedics and she underwent ORIF on August 06. Patient tolerated the procedure well. Postprocedure patient had some nausea which was thought to be because of constipation and pain medications. Patient was treated with bowel regimen and restricting the pain medications after which she started feeling better. Her hemoglobin remained stable. Patient worked appropriately well with physical therapy. Patient's Coumadin was withheld for OR and after that was started again once deemed appropriate with orthopedics. Patient is on Coumadin for atrial fibrillation with goal INR of 2-2.5. Patient at home takes warfarin 4 mg daily. Patient has been getting warfarin 6 mg for last 2 days. Her INR is creeping up. Patient is advised to continue taking 6 mg of warfarin today followed by 4 mg of warfarin daily at home dose from tomorrow. Patient supposed to check her INR in 2 days. If her INR is not at goal Coumadin should be increased accordingly. Patient's blood pressure remained stable. Patient is been discharged in hemodynamically stable condition after COVID-19 has been ruled out to SNF for further rehabilitation. Physical Exam Narrative: EXAM NARRATIVE: General: No acute distress, AO x3, dehydrated HEENT: PERRLA, pupils bilaterally equal and reactive Chest: Normal vesicular breath sounds, no added sounds, equal good air entry bilaterally CVS: S1-S2 irregularly irregular, no murmurs, no tachycardia, no gallops, no rubs Abdomen: Soft, nontender, no organomegaly, bowel sounds present Neuro: No focal deficits, no facial deformity, AO x3, power 5/5 in all limbs Extremities: Healthy surgical bandage present, without any drainage of blood. Urinary Catheter Management^: Grimm: Cath Placed During This Visit: yes, but has since been removed by the nurse Reason for Continuing Indwelling Catheter: Perioperative Use in Selected Surgeries Urinary Catheter Date of Insertion: 08/06/19 Urinary Catheter Time of Insertion: 14:42 Date Urinary Catheter Removed: 08/09/19 Time Urinary Catheter Discontinued: 06:15 Discharge Data Data Completed and Pending: Completed Studies During Hospitalization Category Date Time Status XR chest 1V mari ble [id number] Routine Exams 08/07/19 09:48 Completed XR chest 1V mari ble [id number] Urgent Exams 08/06/19 11:55 Completed XR hip LT 2-3V wo /w pel* [id number] Rout ine Exams 08/07/19 Completed XR hip LT 2-3V wo /w pel* [id number] Stat Exams 08/06/19 12:02 Completed Pending at discharge Category Date Time Status ABO/Rh Type Stat Lab 08/06/19 12:40 Results Complete Blood Co unt w/Auto Stat Lab 08/11/19 11:35 Ordered Complete Crossmat ch Stat Lab 08/06/19 12:40 Results Frozem Plasma FZ <24 1st Cont Routi ne Lab 08/06/19 12:40 Results Prothrombin Time INR Stat Lab 08/11/19 11:35 Ordered Type and Screen S tat Lab 08/06/19 12:40 Results Labs from last 24 hours 08/11/19 08/11/19 08/11/19 04:19 04:19 04:19 WBC 6.1 RBC 4.12 Hgb 12.2 Hct 37.3 MCV 90.5 MCH 29.6 MCHC 32.7 RDW 14.2 Plt Count 124 L MPV 11.0 H Neut % (Auto) 77.9 Lymph % (Auto) 10.7 [place] % (Auto) 7.6 Eos % (Auto) 2.6 Baso % (Auto) 0.5 Neut # (Auto) 4.8 Lymph # (Auto) 0.7 L [place] # (Auto) 0.5 Eos # (Auto) 0.2 Baso # (Auto) 0.0 Nucleated RBC % (a uto) 0 Nucleated RBCs # 0.0 PT 15.00 H INR 1.15 Sodium 135 L Potassium 3.9 Chloride 96 L Carbon Dioxide 27 Anion Gap 15.9 BUN 19 Creatinine 0.7 Glucose 100 Calculated Osmolal ity 277 L Calcium 8.6 Total Bilirubin 1.1 AST 29 ALT 10 Alkaline Phosphata se 94 NT-Pro-B Natriuret Pep Total Protein 5.1 L Albumin 2.8 L Globulin 2.3 08/10/19 12:03 WBC RBC Hgb Hct MCV MCH MCHC RDW Plt Count MPV Neut % (Auto) Lymph % (Auto) [place] % (Auto) Eos % (Auto) Baso % (Auto) Neut # (Auto) Lymph # (Auto) [place] # (Auto) Eos # (Auto) Baso # (Auto) Nucleated RBC % (a uto) Nucleated RBCs # PT INR Sodium 133 L Potassium 3.6 Chloride 94 L Carbon Dioxide 30 H Anion Gap 12.6 BUN 22 Creatinine 0.7 Glucose 127 H Calculated Osmolal ity 274 L Calcium 9.2 Total Bilirubin 1.1 AST 26 ALT 9 Alkaline Phosphata se 84 NT-Pro-B Natriuret Pep 2247 H Total Protein 5.9 L Albumin 3.0 L Globulin 2.9 Vitals: Last Vital Signs Temp 98.5 F 08/11/19 07:27 Pulse 95 08/11/19 07:27 Resp 18 08/11/19 07:27 BP 96/55 08/11/19 07:27 Pulse Ox 96 08/11/19 07:27 Discharge Plan Discharge Patient Disposition: Xfer SNF Condition: Fair Prescriptions: New hydrocodone-acetaminophen 5-325 mg tablet 1 - 2 tab PO Q4H PRN (Reason: pain) Qty: 40 RF: 0 sucralfate 100 mg/mL Suspension 1 g PO AC&BEDTIME Qty: 50 RF: 0 Continued multivitamin Tablet 1 tab PO DAILY RF: 0 warfarin 4 mg tablet 4 mg PO DIRECTED Qty: 90 RF: 3 metoprolol succinate [Toprol XL] 100 mg tablet extended release 24 hr 100 mg PO DAILY Qty: 90 RF: 3 iron 325 mg (65 mg iron) Tablet 325 mg PO BID RF: 0 omeprazole 20 mg Capsule,Delayed Release(Dr/Ec) 20 mg PO DAILY RF: 0 potassium chloride 20 mEq Tablet Extended Release 20 meq PO DAILY RF: 0 Discontinued chlorthalidone 25 mg tablet 12.5 mg PO DAILY RF: 0 Discharge Orders: Discharge Order (Routine); Ordered 08/10/19 Ordered By: Real Montes Referrals: Clarence Mendieta MD [Primary Care Provider] - 08/17/19 2:45 pm Real Montes DO [Physician] - 08/19/19 2:00 pm (Call office at [phone] to make an appointment with Dr. Montes in the office the week of August 16. Visit will consist of removal of jason, x-rays of the left hip and setting up next follow-up appointment) Discharge Diet: Usual diet Discharge Activity: Resume usual activity and As per PT/OT instructions Patient Instructions: Blood Transfusion, Fractures, Fall Prevention (DC) Activity Restrictions/Additional Instructions: Weightbearing as tolerated left lower extremity Gait and transfer training No need for hip precautions as patient underwent open reduction internal fixation of her hip fracture and did not have a prosthesis placed. May shower but do not submerge incision lines after showering change dressing by applying triple antibiotic ointment and Telfa island dressing. Change dressing to left hip incisions every other day or as needed by removing all dressing cleaning incision line with either sterile saline or Castile soap with rinse followed by application of triple antibiotic ointment and Telfa island dressing. Please check INR every alternate day. Target INR 2-2.5. Please dose warfarin accordingly. For now patient is on 4 mg of warfarin daily. Discharge Attestations Time Spent in Discharge Care*: greater than 30 min Specific Discharge Activities: Specific discharge activities: educating patient, discussing with pcp/other providers, discussing with lining caser/social workers/dc planners, documenting/other paperwork and evaluating patient/reviewing data Status at Discharge: Cognitive status at discharge: cognitively intact , Behavioral status at discharge: cooperative , Functional status at discharge: other assisted ambulation Overall status at discharge: patient is progressing back to baseline Quality Metrics Clinical Quality Measures During this hospital stay, did patient experience: None Coding Level of Care Code Acute Lead Slot Technician for Chg Fwd Diagnoses Fall from ground level W18.30XA Closed intertrochanteric fracture of left hip S72.145A Encounter type: initial encounter Fracture alignment: nondisplaced Status post-operative repair of closed fracture of left hip Z98.890; Z87.81 Transfusion reaction T80.92XA Encounter type: initial encounter Chronic anticoagulation Z79.01 Atrial fibrillation I48.0 Atrial fibrillation type: paroxysmal Hypertension I10 Hypertension type: essential hypertension Pacemaker Z95.0 TIA (transient ischemic attack) G45.9 COVID-19 ruled out Z03.818
[2019-08-11 12:53] LABS: Basophils # 0.1 10^3/uL (0.0-0.1); Basophils % 0.7 %; Eosinophils # 0.2 10^3/uL (0.0-0.8); Eosinophils % 2.5 %; Hematocrit 27.9 % (37.0-47.0); Hemoglobin 8.9 g/dL (11.5-15.3); Lymphocytes # 1.1 10^3/uL (0.8-4.8); Lymphocytes % 14.6 %; Mean Corpuscular HGB Conc 31.9 g/dL (30.0-36.0); Mean Corpuscular Volume 93.9 fL (81-99); Mean Platelet Volume 10.3 fL (7.4-10.4); Monocytes # 0.7 10^3/uL (0.2-0.9); Monocytes % 9.7 %; Neutrophils # 5.2 10^3/uL (1.8-7.7); Neutrophils % 71.7 %; Nucleated Red Blood Cells % 0 %; Platelet Count 195 10^3/cmm (130-400); Red Blood Count 2.97 10^6/uL (4.1-5.3); Red Cell Distribution Width 14.2 % (12.1-15.1); White Blood Count 7.2 10^3/uL (4.0-10.0)
[2019-08-11 13:05] LABS: INR 1.15 (0.8-1.2)
--- NOTE | 2019-08-11 13:07 | PC.SOCIAL ---
IMM Updated Updated pt on Pg 2 IMM. Pt verbally understands. No questions voiced. Provided pt a copy & left on pt's bedside table. Signed, dated, & timed copy in chart.
[2019-08-11] MEDS: warfarin 3 mg Tablet 6 MG PO (13:28)
[2019-08-11 13:49] VITALS: BP 111/64; PULSE 72; RESP 18; TEMP 36.4; O2SAT 96
[2019-08-11 15:04] VITALS: BP 111/71; PULSE 72; RESP 17; TEMP 37; O2SAT 96
== END 2019-08-11 15:30 | disposition skilled nursing facility (03) | DRG 481 ==
LOC: ER 14:12 → MEDSURG 14:51
PROVIDERS: Family Medicine; Orthopaedic Surgery; Admitting Provider Hospitalist; Family Provider Family Medicine; PCP Internal Medicine; Visit Provider Student in an Organized Health Care Education/Training Program
PROC: 0QS706Z Reposition Left Upper Femur with Intramedullary Internal Fixation Device, Open Approach (ICD-10-PCS; CPT 27245; principal; 2019-08-07 14:35)
DX: S72.142A Displaced intertrochanteric fracture of left femur, initial encounter for closed fracture (principal); I48.20 Chronic atrial fibrillation, unspecified; W18.39XA Other fall on same level, initial encounter; Y93.89 Activity, other specified; Y92.73 Farm field as the place of occurrence of the external cause; I10 Essential (primary) hypertension; Z95.0 Presence of cardiac pacemaker; Z86.73 Personal history of transient ischemic attack (TIA), and cerebral infarction without residual deficits; Z79.01 Long term (current) use of anticoagulants; R31.29 Other microscopic hematuria; L50.8 Other urticaria; T80.89XA Other complications following infusion, transfusion and therapeutic injection, initial encounter; R06.02 Shortness of breath; R00.0 Tachycardia, unspecified; I95.9 Hypotension, unspecified; Z20.828 Contact with and (suspected) exposure to other viral communicable diseases; K59.00 Constipation, unspecified
CPT/HCPCS: 12345; 36415; 36416; 36430; 51702; 71045; 73502; 76000; 80048; 80053; 80307; 80500; 81001; 82784; 82962; 83605; 83735; 83880; 84484; 85025; 85610; 85730; 86850; 86900; 86927; 87635; 93005; 96375; 97110; 97116; 97161; 97166; 97530; 97535; 99283; C1713; C1776; J0690; J1580; J2001; J2270; J2370; J2405; J2704; J3010; J3430; J3490; J7030; J7040; P9017; Q0162; Q0163

== ENCOUNTER → 2019-08-19 14:12 | Outpatient (BNVA) | payer OTHER, MEDICARE, SELFPAY | PROVIDERS: Family Provider Family Medicine; PCP Internal Medicine; Visit Provider Orthopaedic Surgery | DX: Z47.89 Encounter for other orthopedic aftercare (principal); S72.145D Nondisplaced intertrochanteric fracture of left femur, subsequent encounter for closed fracture with routine healing; W18.39XD Other fall on same level, subsequent encounter | CPT/HCPCS: 73502 ==

== ENCOUNTER 2019-10-01 11:29 | Inpatient (IN) | payer MEDICARE, OTHER, SELFPAY ==
[2019-10-01] VITALS (13 sets, daily range): BP systolic 148–168; BP diastolic 78–107; PULSE 77–109; RESP 14–20; TEMP 36.6–36.8; O2SAT 93–99; BMI 29.2
--- NOTE | 2019-10-01 11:48 | XRR_ITS ---
PROCEDURE INFORMATION: Exam: XR Chest, 1 View Exam date and time: 10/01/2019 12:33 PM Age: 84 years old Clinical indication: Other: No chest complaints; Additional info: Hospital admission TECHNIQUE: Imaging protocol: XR of the chest Views: 1 view. COMPARISON: CR XR chest 1V portable [id number] 08/07/2019 10:00 AM FINDINGS: Tubes, catheters and devices: Pacemaker. Lungs: Hyperinflation and interstitial prominence. No acute airspace disease. Pleural space: No pleural effusion. Heart/Mediastinum: Cardiomegaly. Suspected hiatal hernia. Vasculature: Ectasia of the thoracic aorta. Bones/joints: Osteopenia and degenerative change. XR/XR chest 1V portable [id number] IMPRESSION: 1. Cardiomegaly and pacemaker. 2. Hyperinflation and interstitial prominence.
--- NOTE | 2019-10-01 11:48 | CT_ITS ---
WS: [id number] CT ABDOMEN AND PELVIS WITH CONTRAST HISTORY: incarcerated inguinal hernia TECHNIQUE: Imaging performed of the abdomen and pelvis with IV contrast. Single phase imaging of the abdomen. Coronal and sagittal reformats are submitted. All CT scans at [facility] use at least one of these dose optimization techniques: automated exposure control; mA and/or kV adjustment per patient size (includes targeted exams where dose is matched to clinical indication); or iterativ e reconstruction. IV CONTRAST: Omnipaque 300; 95 mL IV. Oral contrast: No DLP: 549.84 mGy.cm COMPARISON: 10/03/2016 Lower thorax: Small bilateral pleural effusions are new. Moderate cardiac enlargement. Pacer wires no laxmi in the RIGHT heart. There is a very large hiatal hernia. Nearly the entire stomach is intrathorac ic. Similar appearance as to the prior examination. Liver/biliary system: Mild bilateral duct dilatation similar to the prior study. No liver mass or enl argement. Gallbladder: Status post cholecystectomy. Pancreas: Marked atrophy of the pancreas. Common bile duct is top normal size measuring 8 to 9 mm whi ch is probably physiologic related to the cholecystectomy. Spleen: Normal. Adrenal glands: Normal. Right kidney: Normal. Left kidney: Cortical thinning upper pole. No solid mass or obstruction. 2 small to characterize cyst in the mid kidney. Aorta: Mild atherosclerosis aorta with no aneurysm. Lymphadenopathy: None. Free fluid: None. GI tract: Mild fecal retention. There is no obstruction. No evidence for appendicitis. Sigmoid divert icular disease without acute diverticulitis. Abdominal wall: Fat-containing umbilical hernia. Pelvis: Minimally distended urinary bladder. No free fluid or adenopathy. LEFT inguinal hernia contai ns fat only. Orifice of the hernia is 2.0 cm. There is a small amount of fluid and mild induration of the fat in the inguinal hernia. Loop of small bowel that was previously seen in the hernia is no roula monika present. Postoperative soft tissue changes centered over the LEFT hip from the prior intramedullary rodding. Bones: Osteopenia with mild increase in lordosis. CT/CT abdomen pelvis w con* [id number] IMPRESSION: 1. Large LEFT inguinal hernia contains fat only. Loop of small bowel previousl y described in this hernia is no longer present. There is no GI tract obstructi on. 2. Increased fat and soft tissue induration with a small amount of fluid in th e LEFT inguinal hernia. May represent mild omental ischemic changes. This is ty pically self-limiting. 3. New small bilateral pleural effusions. 4. Large hiatal hernia, essentially intrathoracic stomach. 5. Moderate cardiomegaly. 6. Prior cholecystectomy.
--- NOTE | 2019-10-01 11:50 | ED_ITS ---
Documented by User: GISSELLE Alvarado 10/01/19 15:14 HPI - Abdominal Pain General: Chief Complaint: Abdominal Pain Stated Complaint: lower abd pain Time Seen by Provider: 10/01/19 11:34 Source: patient Mode of arrival: wheelchair Limitations: no limitations History of Present Illness: HPI narrative: Patient is an 84-year-old female who presents to ED today for evaluation of lower abdominal pain. Patient tells me while trying to have a bowel movement this morning she felt immediate pain to her lower abdomen. Patient tells me she has a known inguinal hernia to this region. She states the hernia has never seem to bother her previously. Patient denies nausea, vomiting. She denies any changes in her bowel movements. No fever/chills. MD elicited complaint: abdominal pain Pertinent past history: other (known inguinal hernia) Associated Symptoms: Denies change in bowel habits, change in stool character, chills, diarrhea, dysuria, fever(s), nausea and vomiting Review of Systems Const: Denies: fever(s) or chills Card: Denies: chest pain Resp: Denies: dyspnea GI: Reports: abdominal pain (pain in lower abdomen ); Denies: nausea, vomiting, diarrhea, change in bowel habits, pain on defecation, rectal pain or change in stool character : Denies: flank pain, difficulty voiding, dysuria, urinary frequency, urinary urgency or urinary hesitancy Musc: Denies: neck pain or back pain Skin/Breast: Denies: rash or changes in skin color Neuro: Denies: numbness in extremities, weakness in extremities or sensory changes [facility] ED PFSH: Medical History (Updated 10/10/19 @ 03:22 by Paola Gramajo MD) Atrial fibrillation History of transfusion reaction (~07/2019) anaphylactic reaction to blood transfusion in hospital, needs pretreatment with benedryl for future reactions Hypertension Pacemaker TIA (transient ischemic attack) Surgical History (Updated 10/10/19 @ 03:18 by Paola Gramajo MD) History of cataract surgery History of hysterectomy Hx of cholecystectomy Status post left inguinal hernia repair (10/02/19) Status post-operative repair of closed fracture of left hip (08/07/19) Family History Other CAD (coronary artery disease) Diabetes Social History (Updated 10/10/19 @ 03:20 by Paola Gramajo MD) Smoking and tobacco status: never smoked Alcohol intake: never Marital status: Additional social history: Currently residing at skilled facility after recent surgery to groin area. has dementia and requires some care. Had been fairly independent and active until hip fracture in July of 2019. Physical Exam Const: COMMON NORMALS: no acute distress, average body habitus, patient oriented x3, no limitations, healthy appearing, alert and well nourished ORIENTATION/CONSCIOUSNESS: Yes oriented to person, Yes oriented to place and Yes oriented to time HENMT: COMMON NORMALS: normocephalic and atraumatic HEAD & SCALP: normocephalic and atraumatic Resp: COMMON NORMALS: normal respiratory effort and clear to auscultation bilaterally AUSCULTATION: clear to auscultation bilaterally Cardio: COMMON NORMALS: regular rate RATE: regular rate RHYTHM: abnormal rhythm irregularly irregular GI: COMMON NORMALS: No hepatosplenomegaly present INSPECTION: Yes other (inguinal hernia present) AUSCULTATION: Yes normoactive bowel sounds PALPATION: Yes Tenderness to palpation present (GI) (pt very tender over hernia) and Yes No hepatosplenomegaly present OTHER: patient could barely tolerate me palpating the hernia; attempted reduction could not be performed due to patient tolerance : COMMON NORMALS: Yes no CVA tenderness BLADDER/KIDNEY EXAM: Yes no CVA tenderness Back/Pelvis: COMMON NORMALS: no CVA tenderness Extremity: COMMON NORMALS: capillary refill normal (DP/PT pulses intact) Neuro: COMMON NORMALS: patient oriented x3, moves all extremities, no focal motor deficits and no sensory deficits noted SENSORIUM/ORIENTATION: Yes alert, Yes oriented to person, Yes oriented to place and Yes oriented to time Skin: COMMON NORMALS: no rashes or lesions noted GENERAL SKIN EXAM: no rashes or lesions noted Course Consultations: Consultation #1: Dr. Rain (RN in the OR): [facility] and he will consult Vital Signs: Vital signs: Vital Signs Temperature 98.1 F 10/06/19 13:24 Pulse Rate 102 H 10/06/19 13:24 Respiratory Rate 16 10/06/19 13:24 Blood Pressure 112/67 10/06/19 13:24 Pulse Oximetry 95 10/06/19 13:24 MDM - Abdominal Pain MDM Narrative: Medical decision making narrative: Patient CT scan showing fat only left inguinal hernia however she does have soft tissue induration and a small amount of fluid surrounding the fat that may represent mild omental ischemic changes. On exam patient is exquisitely tender. She has had this hernia for several years but it has never bulged out or has been painful. On exam her hernia cannot be reduced. I have spoken to Dr. Rain (RN in the OR relayed message) he requested patient be admitted to the hospitalist due to her other comorbidities and her anticoagulation use. Stated he would perform surgery on patient once her INR was corrected. Patient has other hernias present via CT scan but these do not seem to bother her. Lab Data: Labs: Lab Results 10/01/19 10/01/19 10/01/19 Range/Units 12:14 12:14 12:14 WBC 7.8 (4.0-10.0) 10^3/ uL RBC 4.22 (4.1-5.3) 10^6/u L Hgb 12.7 (11.5-15.3) g/dL Hct 40.0 (37.0-47.0) % MCV 94.8 (81-99) fL MCH 30.1 (28.0-34.0) pg MCHC 31.8 (30.0-36.0) g/dL RDW 13.7 (12.1-15.1) % Plt Count 238 (130-400) 10^3/c mm MPV 10.4 (7.4-10.4) fL Neut % (Auto) 75.0 % Lymph % (Auto) 16.7 % [place] % (Auto) 6.4 % Eos % (Auto) 0.9 % Baso % (Auto) 0.5 % Neut # (Auto) 5.84 (1.8-7.7) 10^3/u L Lymph # (Auto) 1.3 (0.8-4.8) 10^3/u L [place] # (Auto) 0.5 (0.2-0.9) 10^3/u L Eos # (Auto) 0.1 (0.0-0.8) 10^3/u L Baso # (Auto) 0.0 (0.0-0.1) 10^3/u L Nucleated RBC % (a uto) 0 % Nucleated RBCs # 0.0 /100WBC PT 25.50 H (12.1-14.9) SECO NDS INR 2.23 H (0.8-1.2) Sodium 137 (136-145) mmol/L Potassium 3.9 (3.5-5.1) mmol/L Chloride 99 (98-107) mmol/L Carbon Dioxide 30 H (22-29) mmol/L Anion Gap 11.9 (5-19) BUN 14 (8-23) mg/dL Creatinine 0.7 (0.5-0.9) mg/dL GFR Calculation Not Reportable Glucose 121 H (65-115) mg/dL Calculated Osmolal ity 281 L (285-295) mOsm/k g Lactic Acid (0.5-2.2) mmol/L Calcium 9.4 (8.5-10.5) mg/dL Total Bilirubin 0.8 (0.15-1.2) mg/dL AST 21 (0-32) U/L ALT 11 (0-33) U/L Alkaline Phosphata se 100 (35-105) IU/L Total Protein 7.7 (6.6-8.7) g/dL Albumin 3.8 (3.5-5.2) g/dL Globulin 3.9 (1.3-4.6) g/dL Urine Color (Yellow) Urine Appearance (CLEAR) Urine pH (5-7) Ur Specific Gravit y (1.005-1.030) Urine Protein (Negative) Urine Glucose (UA) (Normal) Urine Ketones (Negative) Urine Blood (Negative) Urine Nitrate (Negative) Urine Bilirubin (NEGATIVE) Urine Urobilinogen (Negative) mg/dL Ur Leukocyte Negra ase (Negative) Urine RBC (0-2) /hpf Urine WBC (0-5) /hpf Ur Squamous Epith Cells (0-5) Amorphous Sediment Urine Bacteria (NONE) 10/01/19 10/01/19 Range/Units 12:14 12:40 WBC (4.0-10.0) 10^3/ uL RBC (4.1-5.3) 10^6/u L Hgb (11.5-15.3) g/dL Hct (37.0-47.0) % MCV (81-99) fL MCH (28.0-34.0) pg MCHC (30.0-36.0) g/dL RDW (12.1-15.1) % Plt Count (130-400) 10^3/c mm MPV (7.4-10.4) fL Neut % (Auto) % Lymph % (Auto) % [place] % (Auto) % Eos % (Auto) % Baso % (Auto) % Neut # (Auto) (1.8-7.7) 10^3/u L Lymph # (Auto) (0.8-4.8) 10^3/u L [place] # (Auto) (0.2-0.9) 10^3/u L Eos # (Auto) (0.0-0.8) 10^3/u L Baso # (Auto) (0.0-0.1) 10^3/u L Nucleated RBC % (a uto) % Nucleated RBCs # /100WBC PT (12.1-14.9) SECO NDS INR (0.8-1.2) Sodium (136-145) mmol/L Potassium (3.5-5.1) mmol/L Chloride (98-107) mmol/L Carbon Dioxide (22-29) mmol/L Anion Gap (5-19) BUN (8-23) mg/dL Creatinine (0.5-0.9) mg/dL GFR Calculation Glucose (65-115) mg/dL Calculated Osmolal ity (285-295) mOsm/k g Lactic Acid 1.1 (0.5-2.2) mmol/L Calcium (8.5-10.5) mg/dL Total Bilirubin (0.15-1.2) mg/dL AST (0-32) U/L ALT (0-33) U/L Alkaline Phosphata se (35-105) IU/L Total Protein (6.6-8.7) g/dL Albumin (3.5-5.2) g/dL Globulin (1.3-4.6) g/dL Urine Color Yellow (Yellow) Urine Appearance Clear (CLEAR) Urine pH 7 (5-7) Ur Specific Gravit y 1.015 (1.005-1.030) Urine Protein Neg (Negative) Urine Glucose (UA) Norm (Normal) Urine Ketones Negative (Negative) Urine Blood 2+ H (Negative) Urine Nitrate Negative (Negative) Urine Bilirubin Neg (NEGATIVE) Urine Urobilinogen Neg (Negative) mg/dL Ur Leukocyte Negra ase Negative (Negative) Urine RBC 10-15 H (0-2) /hpf Urine WBC 0-4 H (0-5) /hpf Ur Squamous Epith Cells 0-4 H (0-5) Amorphous Sediment Not Reportable Urine Bacteria 1+ H (NONE) Imaging Data ^: CXR: Radiologist's impression: [place] [address] XRay Report Signed Patient: Khushi Dolan Unit #: [id number] : 1935 Age/Sex: 84 / F ADM Date: 10/01/19 Loc: ER Room/Bed: Attending Dr: Ordering Provider/Ordering MD: Amber Bragg Date of Service: 10/01/19 Procedure(s): XR chest 1V portable [id number] Accession Number(s): [id number] Report Number: [id number] PROCEDURE INFORMATION: Exam: XR Chest, 1 View Exam date and time: 10/01/2019 12:33 PM Age: 84 years old Clinical indication: Other: No chest complaints; Additional info: Hospital admission TECHNIQUE: Imaging protocol: XR of the chest Views: 1 view. COMPARISON: CR XR chest 1V portable [id number] 08/07/2019 10:00 AM FINDINGS: Tubes, catheters and devices: Pacemaker. Lungs: Hyperinflation and interstitial prominence. No acute airspace disease. Pleural space: No pleural effusion. Heart/Mediastinum: Cardiomegaly. Suspected hiatal hernia. Vasculature: Ectasia of the thoracic aorta. Bones/joints: Osteopenia and degenerative change. XR/XR chest 1V portable [id number] IMPRESSION: 1. Cardiomegaly and pacemaker. 2. Hyperinflation and interstitial prominence. Dictated By: Williams Felder MD Signed By: Williams Felder MD Signed Date/Time: 10/01/19 131 DD/ 131 CT Abd/Pel: Radiologist's impression: [place] [address] CT Scan Report Signed Patient: Khushi Dolan Unit #: [id number] : 1935 Age/Sex: 84 / F ADM Date: 10/01/19 Loc: ER Room/Bed: Attending Dr: Ordering Provider/Ordering MD: Amber Bragg Date of Service: 10/01/19 Procedure(s): CT abdomen pelvis w con* [id number] Accession Number(s): [id number] Report Number: [id number] WS: [id number] CT ABDOMEN AND PELVIS WITH CONTRAST HISTORY: incarcerated inguinal hernia TECHNIQUE: Imaging performed of the abdomen and pelvis with IV contrast. Single phase imaging of the abdomen. Coronal and sagittal reformats are submitted. All CT scans at [facility] use at least one of these dose optimization techniques: automated exposure control; mA and/or kV adjustment per patient size (includes targeted exams where dose is matched to clinical indication); or iterative reconstruction. IV CONTRAST: Omnipaque 300; 95 mL IV. Oral contrast: No DLP: 549.84 mGy.cm COMPARISON: 10/03/2016 Lower thorax: Small bilateral pleural effusions are new. Moderate cardiac enlargement. Pacer wires noted in the RIGHT heart. There is a very large hiatal hernia. Nearly the entire stomach is intrathoracic. Similar appearance as to the prior examination. Liver/biliary system: Mild bilateral duct dilatation similar to the prior study. No liver mass or enlargement. Gallbladder: Status post cholecystectomy. Pancreas: Marked atrophy of the pancreas. Common bile duct is top normal size measuring 8 to 9 mm which is probably physiologic related to the cholecystectomy. Spleen: Normal. Adrenal glands: Normal. Right kidney: Normal. Left kidney: Cortical thinning upper pole. No solid mass or obstruction. 2 small to characterize cyst in the mid kidney. Aorta: Mild atherosclerosis aorta with no aneurysm. Lymphadenopathy: None. Free fluid: None. GI tract: Mild fecal retention. There is no obstruction. No evidence for appendicitis. Sigmoid diverticular disease without acute diverticulitis. Abdominal wall: Fat-containing umbilical hernia. Pelvis: Minimally distended urinary bladder. No free fluid or adenopathy. LEFT inguinal hernia contains fat only. Orifice of the hernia is 2.0 cm. There is a small amount of fluid and mild induration of the fat in the inguinal hernia. Loop of small bowel that was previously seen in the hernia is no longer present. Postoperative soft tissue changes centered over the LEFT hip from the prior intramedullary rodding. Bones: Osteopenia with mild increase in lordosis. CT/CT abdomen pelvis w con* [id number] IMPRESSION: 1. Large LEFT inguinal hernia contains fat only. Loop of small bowel previously described in this hernia is no longer present. There is no GI tract obstruction. 2. Increased fat and soft tissue induration with a small amount of fluid in the LEFT inguinal hernia. May represent mild omental ischemic changes. This is typically self- limiting. 3. New small bilateral pleural effusions. 4. Large hiatal hernia, essentially intrathoracic stomach. 5. Moderate cardiomegaly. 6. Prior cholecystectomy. Dictated By: Veronica Ramsay DO Signed By: Veronica Ramsay DO Signed Date/Time: 10/01/19 1340 Discharge Plan Discharge Patient Disposition: Admitted As Inpatient Admit Provider: Krista Kilgore Clinical Impression: Incarcerated left inguinal hernia, Atrial fibrillation, chronic, Anticoagulated Condition: Stable Referrals: [facility] [Outside] [facility] [Outside] Clarence Mendieta MD [Primary Care Provider] - 10/12/19 3:15 pm Hilario Rain MD [Physician] - 10/19/19 11:15 am Discharge Diet: Advance as tolerated Discharge Activity: Increase activity as tolerated and As per PT/OT instructions Patient Instructions: Doxycycline (By mouth), Nystatin (On the skin), Open Herniorrhaphy (DC), Laparoscopic Herniorrhaphy (DC) Additional Instructions: 1. Up and walking as tolerated. 2. Ok to shower in 48 hours after surgery. 3. Remove Dermabond dressing in 7-10 days. 4. Do not lift more than 10 pounds. 5. Do not operate heavy machinery or drive while using pain medications. 6. Advised to return to ER or contact my office if there are any signs of infection like, increasing pain, fevers, chills, redness or drainage of pus. Please continue warfarin. Recheck INR in 3 days. Adjust warfarin dose based on INR. Target INR 2-3. Reassess area of cellulitis and seroma in the suprapubic region. In case of worsening/progression, high fevers, severe pain, or other abnormality, please seek additional reevaluation of the seroma to make sure it is not transforming into an abscess. Make sure to follow-up with surgery. Discharge Date/Time: 10/01/19 15:20 Coding Level of Care Code ED Weight Checker for Chg Fwd Exam Comprehensive Documented by User: Arin Avery MD 10/15/19 06:17 HPI - Abdominal Pain General: Chief Complaint: Abdominal Pain Stated Complaint: lower abd pain Time Seen by Provider: 10/01/19 11:34 [facility] ED PFSH: Medical History (Updated 10/10/19 @ 03:22 by Paola Gramajo MD) Atrial fibrillation History of transfusion reaction (~07/2019) anaphylactic reaction to blood transfusion in hospital, needs pretreatment with benedryl for future reactions Hypertension Pacemaker TIA (transient ischemic attack) Surgical History (Updated 10/10/19 @ 03:18 by Paola Gramajo MD) History of cataract surgery History of hysterectomy Hx of cholecystectomy Status post left inguinal hernia repair (10/02/19) Status post-operative repair of closed fracture of left hip (08/07/19) Family History Other CAD (coronary artery disease) Diabetes Social History (Updated 10/10/19 @ 03:20 by Paola Gramajo MD) Smoking and tobacco status: never smoked Alcohol intake: never Marital status: Additional social history: Currently residing at skilled facility after recent surgery to groin area. has dementia and requires some care. Had been fairly independent and active until hip fracture in July of 2019. Course Vital Signs: Vital signs: Vital Signs Temperature 98.1 F 10/06/19 13:24 Pulse Rate 102 H 10/06/19 13:24 Respiratory Rate 16 10/06/19 13:24 Blood Pressure 112/67 10/06/19 13:24 Pulse Oximetry 95 10/06/19 13:24 MDM - Abdominal Pain Lab Data: Labs: Lab Results 08/06/20 08/06/20 08/06/20 Range/Units 12:14 12:14 12:14 WBC 7.8 (4.0-10.0) 10^3/ uL RBC 4.22 (4.1-5.3) 10^6/u L Hgb 12.7 (11.5-15.3) g/dL Hct 40.0 (37.0-47.0) % MCV 94.8 (81-99) fL MCH 30.1 (28.0-34.0) pg MCHC 31.8 (30.0-36.0) g/dL RDW 13.7 (12.1-15.1) % Plt Count 238 (130-400) 10^3/c mm MPV 10.4 (7.4-10.4) fL Neut % (Auto) 75.0 % Lymph % (Auto) 16.7 % [place] % (Auto) 6.4 % Eos % (Auto) 0.9 % Baso % (Auto) 0.5 % Neut # (Auto) 5.84 (1.8-7.7) 10^3/u L Lymph # (Auto) 1.3 (0.8-4.8) 10^3/u L [place] # (Auto) 0.5 (0.2-0.9) 10^3/u L Eos # (Auto) 0.1 (0.0-0.8) 10^3/u L Baso # (Auto) 0.0 (0.0-0.1) 10^3/u L Nucleated RBC % (a uto) 0 % Nucleated RBCs # 0.0 /100WBC PT 25.50 H (12.1-14.9) SECO NDS INR 2.23 H (0.8-1.2) Sodium 137 (136-145) mmol/L Potassium 3.9 (3.5-5.1) mmol/L Chloride 99 (98-107) mmol/L Carbon Dioxide 30 H (22-29) mmol/L Anion Gap 11.9 (5-19) BUN 14 (8-23) mg/dL Creatinine 0.7 (0.5-0.9) mg/dL GFR Calculation Not Reportable Glucose 121 H (65-115) mg/dL Calculated Osmolal ity 281 L (285-295) mOsm/k g Lactic Acid (0.5-2.2) mmol/L Calcium 9.4 (8.5-10.5) mg/dL Total Bilirubin 0.8 (0.15-1.2) mg/dL AST 21 (0-32) U/L ALT 11 (0-33) U/L Alkaline Phosphata se 100 (35-105) IU/L Total Protein 7.7 (6.6-8.7) g/dL Albumin 3.8 (3.5-5.2) g/dL Globulin 3.9 (1.3-4.6) g/dL Urine Color (Yellow) Urine Appearance (CLEAR) Urine pH (5-7) Ur Specific Gravit y (1.005-1.030) Urine Protein (Negative) Urine Glucose (UA) (Normal) Urine Ketones (Negative) Urine Blood (Negative) Urine Nitrate (Negative) Urine Bilirubin (NEGATIVE) Urine Urobilinogen (Negative) mg/dL Ur Leukocyte Negra ase (Negative) Urine RBC (0-2) /hpf Urine WBC (0-5) /hpf Ur Squamous Epith Cells (0-5) Amorphous Sediment Urine Bacteria (NONE) 10/01/19 10/01/19 Range/Units 12:14 12:40 WBC (4.0-10.0) 10^3/ uL RBC (4.1-5.3) 10^6/u L Hgb (11.5-15.3) g/dL Hct (37.0-47.0) % MCV (81-99) fL MCH (28.0-34.0) pg MCHC (30.0-36.0) g/dL RDW (12.1-15.1) % Plt Count (130-400) 10^3/c mm MPV (7.4-10.4) fL Neut % (Auto) % Lymph % (Auto) % [place] % (Auto) % Eos % (Auto) % Baso % (Auto) % Neut # (Auto) (1.8-7.7) 10^3/u L Lymph # (Auto) (0.8-4.8) 10^3/u L [place] # (Auto) (0.2-0.9) 10^3/u L Eos # (Auto) (0.0-0.8) 10^3/u L Baso # (Auto) (0.0-0.1) 10^3/u L Nucleated RBC % (a uto) % Nucleated RBCs # /100WBC PT (12.1-14.9) SECO NDS INR (0.8-1.2) Sodium (136-145) mmol/L Potassium (3.5-5.1) mmol/L Chloride (98-107) mmol/L Carbon Dioxide (22-29) mmol/L Anion Gap (5-19) BUN (8-23) mg/dL Creatinine (0.5-0.9) mg/dL GFR Calculation Glucose (65-115) mg/dL Calculated Osmolal ity (285-295) mOsm/k g Lactic Acid 1.1 (0.5-2.2) mmol/L Calcium (8.5-10.5) mg/dL Total Bilirubin (0.15-1.2) mg/dL AST (0-32) U/L ALT (0-33) U/L Alkaline Phosphata se (35-105) IU/L Total Protein (6.6-8.7) g/dL Albumin (3.5-5.2) g/dL Globulin (1.3-4.6) g/dL Urine Color Yellow (Yellow) Urine Appearance Clear (CLEAR) Urine pH 7 (5-7) Ur Specific Gravit y 1.015 (1.005-1.030) Urine Protein Neg (Negative) Urine Glucose (UA) Norm (Normal) Urine Ketones Negative (Negative) Urine Blood 2+ H (Negative) Urine Nitrate Negative (Negative) Urine Bilirubin Neg (NEGATIVE) Urine Urobilinogen Neg (Negative) mg/dL Ur Leukocyte Negra ase Negative (Negative) Urine RBC 10-15 H (0-2) /hpf Urine WBC 0-4 H (0-5) /hpf Ur Squamous Epith Cells 0-4 H (0-5) Amorphous Sediment Not Reportable Urine Bacteria 1+ H (NONE) Discharge Plan Discharge Patient Disposition: Admitted As Inpatient Admit Provider: Krista Kilgore Clinical Impression: Incarcerated left inguinal hernia, Atrial fibrillation, chronic, Anticoagulated Condition: Stable Referrals: [facility] [Outside] [facility] [Outside] Clarence Mendieta MD [Primary Care Provider] - 10/12/19 3:15 pm Hilario Rain MD [Physician] - 10/19/19 11:15 am Discharge Diet: Advance as tolerated Discharge Activity: Increase activity as tolerated and As per PT/OT instructions Patient Instructions: Doxycycline (By mouth), Nystatin (On the skin), Open Herniorrhaphy (DC), Laparoscopic Herniorrhaphy (DC) Additional Instructions: 1. Up and walking as tolerated. 2. Ok to shower in 48 hours after surgery. 3. Remove Dermabond dressing in 7-10 days. 4. Do not lift more than 10 pounds. 5. Do not operate heavy machinery or drive while using pain medications. 6. Advised to return to ER or contact my office if there are any signs of infection like, increasing pain, fevers, chills, redness or drainage of pus. Please continue warfarin. Recheck INR in 3 days. Adjust warfarin dose based on INR. Target INR 2-3. Reassess area of cellulitis and seroma in the suprapubic region. In case of worsening/progression, high fevers, severe pain, or other abnormality, please seek additional reevaluation of the seroma to make sure it is not transforming into an abscess. Make sure to follow-up with surgery. Discharge Date/Time: 10/01/19 15:20 Coding Level of Care Code ED Weight Checker for Davonte Fwpierre Exam Comprehensive
[2019-10-01] MEDS: morphine 4 mg/mL SDV 1 mL IVP ×2 (12:25→14:07)
[2019-10-01] MEDS: ondansetron 2 mg/ML SDV 2 mL 4 MG IVP ×2 (12:25→14:07)
[2019-10-01] MEDS: sodium chloride 0.9% 1,000 ML 999 ML IV (12:27)
[2019-10-01 12:28] LABS: Basophils % 0.5 %; Eosinophils # 0.1 10^3/uL (0.0-0.8); Eosinophils % 0.9 %; Hemoglobin 12.7 g/dL (11.5-15.3); Lymphocytes # 1.3 10^3/uL (0.8-4.8); Lymphocytes % 16.7 %; Mean Corpuscular HGB Conc 31.8 g/dL (30.0-36.0); Mean Corpuscular Hemoglobin 30.1 pg (28.0-34.0); Mean Corpuscular Volume 94.8 fL (81-99); Mean Platelet Volume 10.4 fL (7.4-10.4); Monocytes # 0.5 10^3/uL (0.2-0.9); Monocytes % 6.4 %; Neutrophils # 5.84 10^3/uL (1.8-7.7); Nucleated Red Blood Cells % 0 %; Platelet Count 238 10^3/cmm (130-400); Red Blood Count 4.22 10^6/uL (4.1-5.3); Red Cell Distribution Width 13.7 % (12.1-15.1); White Blood Count 7.8 10^3/uL (4.0-10.0)
[2019-10-01 12:57] LABS: Alanine Aminotransferase 11 U/L (0-33); Albumin Level 3.8 g/dL (3.5-5.2); Alkaline Phosphatase 100 IU/L (35-105); Anion Gap 11.9 (5-19); Aspartate Amino Transferase 21 U/L (0-32); Blood Urea Nitrogen 14 mg/dL (8-23); Calcium 9.4 mg/dL (8.5-10.5); Carbon Dioxide 30 mmol/L (22-29); Chloride 99 mmol/L (98-107); Globulin 3.9 g/dL (1.3-4.6); Glucose 121 mg/dL (65-115); Osmolality Calculated 281 mOsm/kg (285-295); Potassium 3.9 mmol/L (3.5-5.1); Sodium 137 mmol/L (136-145); Total Bilirubin 0.8 mg/dL (0.15-1.2); Total Protein 7.7 g/dL (6.6-8.7)
[2019-10-01 13:06] LABS: INR 2.23 (0.8-1.2)
[2019-10-01] MEDS: iohexol 300 mg/mL 100 mL Btl IV (13:28)
--- NOTE | 2019-10-01 13:55 | ECG_ITS ---
[facility] Test Date: 2019-10-01 Pat Name: Khushi Dolan Department: Room: Gender: Female [employer]: : 1935 Requested By: Amber Bragg Order Number: [id number] Arcos MD: Oziel Kelly M.D. Measurements Intervals [place] Rate: 115 P: AL: -1 QRS: -11 QRSD: 94 T: 81 QT: 317 QTc: 440 Interpretive Statements ATRIAL FIBRILLATION WITH RAPID VENTRICULAR RESPONSE NONSPECIFIC ST & T-WAVE ABNORMALITY ABNORMAL RHYTHM ECG Compared to ECG 08/07/2019 12:43:45 T-wave abnormality now present Myocardial infarct finding no longer present Electronically Signed On 10-01-2019 21:16:27 CDT by Oziel Kelly M.D. [email or web address]/store/[id number]
[2019-10-01 14:05] LABS: Lactic Sepsis W/Reflex 1.1 mmol/L (0.5-2.2)
[2019-10-01 14:05] LABS: Add Urine Culture? Yes; Add Urine Microscopic? YES; Bacteria Urine 1+; Bilirubin Urine Neg (NEGATIVE); Blood Urine 2+ (Negative); Glucose Urine UA Norm (Normal); Ketones Urine Negative (Negative); Leukocyte Esterase Urine Negative (Negative); Nitrate Urine Negative (Negative); Protein Urine Neg (Negative); Specific Gravity, Urine 1.015 (1.005-1.030); Squamous Epithelial Cell Urine 0-4 (0-5); Urine Appearance Clear (CLEAR); Urine Color Yellow (Yellow); Urobilinogen Urine Neg (Negative); WBC Urine 0-4 /hpf (0-5); pH Urine 7 (5-7)
--- NOTE | 2019-10-01 16:44 | PM.HP ---
Providers/Chief Complaint Admitting Physician: Krista Kilgore MD Primary Care Provider: Clarence Mendieta MD Chief Complaint: lower abd pain History of Present Illness Khushi Dolan is a 84 year old female with past medical history of atrial fibrillation, hypertension, pacemaker, TIA twice, recently admitted here in July for hip fracture, recovered well postoperatively presenting today with complaints of abdominal pain, nausea, altered bowel movement since yesterday and inability to reduce her known hernia today. CT of the abdomen and pelvis showed left inguinal hernia containing fat only. Loop of small bowel was not seen. There were no signs of obstruction. The site of hernia is quite painful for her. She has been evaluated by surgery and plan is to go to the OR tomorrow morning. Of note her INR today is at 2.23. She has a history of atrial fibrillation, EKG today shows A. fib with RVR. She has not taken her regular dose of Toprol-XL because of nausea this morning. Denies any other complaints of chest pain dyspnea cough fever at this present time. Review of Systems General: Reports: 10 or more systems reviewed and unremarkable except in HPI and below Const: Denies: fever(s), chills or body aches Eyes: Denies: change in vision, blurry vision or photophobia ENMT: Reports: hoarseness; Denies: throat pain, enlarged tonsils, odynophagia or nasal congestion Card: Denies: chest pain, palpitations, irregular heart rhythm, edema, swelling of feet/ankles, lightheadedness, pre-syncope, dyspnea on exertion or orthopnea Resp: Denies: dyspnea, productive cough, non-productive cough, wheezing, stridor, pain on inspiration, change in phlegm color, hemoptysis or chest congestion GI: Denies: abdominal pain, nausea, vomiting, hematemesis, coffee ground emesis, dysphagia, heartburn, diarrhea, constipation, GI cramping, change in stool character, hematochezia or melena : Denies: flank pain, difficulty voiding, dysuria, urinary frequency, urinary urgency, urinary hesitancy or hematuria Musc: Denies: neck pain, back pain, extremity pain, joint swelling, joint warmth or deformity Neuro: Denies: headache(s), numbness in extremities, weakness in extremities, sensory changes, difficulty walking, frequent falls, dizziness, vertigo, behavioral changes, Slurred speech present or seizure-like activity Psych: Denies: anxiety, depression, suicidal ideation or homicidal ideation Endo: Denies: polyuria, polydipsia, tired all the time, cold intolerance or hot flashes Amilcar/Lymph: Denies: easy bruising or easy bleeding Medications/Allergies Home Medications Medication Instructions Recorded Confirmed Last Taken Type warfarin 4 mg tablet 4 mg PO DIRECTED #90 tab 05/06/19 10/01/19 09/30/19 Rx multivitamin 1 tab PO DAILY 05/13/19 10/01/19 09/30/19 History metoprolol succinate 100 mg 100 mg PO DAILY #90 tab 06/30/19 10/01/19 10/01/19 Rx tablet,extended release 24 hr ferrous sulfate [iron] 325 mg PO BID 08/06/19 10/01/19 09/30/19 History omeprazole 20 mg PO DAILY 08/06/19 10/01/19 09/30/19 History potassium chloride 20 meq PO DAILY 08/06/19 10/01/19 09/30/19 History hydrocodone-acetaminophen 1 - 2 tab PO Q4H PRN #40 tab 08/10/19 10/01/19 09/30/19 Rx sucralfate 1 g PO AC&BEDTIME #50 ml 08/11/19 10/01/19 Unknown Rx Allergies Allergy/AdvReac Type Severity Reaction Status Date / Time valsartan [From Diovan] Allergy Unknown Verified 10/01/19 12:16 amlodipine AdvReac Unknown Verified 10/01/19 12:16 anxiety med AdvReac Severe very sick Uncoded 08/19/19 14:01 PFSH Acute PFSH: Medical History Atrial fibrillation Hypertension Pacemaker TIA (transient ischemic attack) X2 Surgical History History of cataract surgery History of hysterectomy Hx of cholecystectomy Status post-operative repair of closed fracture of left hip Family History Other CAD (coronary artery disease) Diabetes Social History Smoking and tobacco status: never smoked Alcohol intake: never Marital status: Vitals/I&O/Wt Last Vital Signs Temp 98.2 F 10/01/19 15:48 Pulse 105 H 10/01/19 15:48 Resp 16 10/01/19 15:48 BP 148/84 10/01/19 15:48 Pulse Ox 99 10/01/19 15:48 10/01/19 10/01/19 10/01/19 06:59 14:59 22:59 Intake Total 1000 / 1000 Balance 1000 / 1000 Weight last 48 hrs Weight 68.039 kg Physical Exam Narrative: EXAM NARRATIVE: GEN: Awake, alert and oriented, no acute distress CVS: S1S2 N RS: CTA B/L Abd: Soft, nt/nd , bs+ UPSETTING MACHINE OPERATOR: no focal neuro deficits Data : 10/01/19 12:14 10/01/19 12:14 A&P Assessment and plan (1) Incarcerated left inguinal hernia: Status: Acute (2) Atrial fibrillation, chronic: Status: Acute (3) Anticoagulated: Status: Acute (4) Hypertension: Status: Chronic Qualifiers: Hypertension type: essential hypertension Qualified Code(s): I10 - Essential (primary) hypertension (5) TIA (transient ischemic attack): Status: Chronic Additional A&P Information Admit to [facility] for incarcerated left inguinal hernia. Hernia consist mainly of fat. No bowel loops are seen. There is no evidence of SBO. Patient is complaining of some nausea with Zofran has been ordered. She has not had any episodes of vomiting. Her current INR is at 2.23, in anticipation of surgery tomorrow morning we will give her some vitamin K and 2 units of FFP. Goal INR less than 2 before proceeding to surgery. Depending on postop course, will either resume warfarin versus overlap anticoagulation with heparin until therapeutic INR is achieved. Continue beta-blockers. Currently with A fib with RVR, HR 105-109. Hypertension: no current medications on home list. May be 2/2 pain. For now use hydralazine prn for SBP >150. Morphine prn for pain control NPO, IVF D5NS @75cc/hr Full code DVT ppx: SCDs only for now Attestations Medical Necessity Statement*: inguinal hernia needing surgical repair, reversal of INR, antcipate >2midnight stay Coding Level of Care Code Acute Gasoline Tractor Operator for Chg F[facility] Diagnoses Incarcerated left inguinal hernia K40.30 Atrial fibrillation, chronic I48.20 Anticoagulated Z79.01 Hypertension I10 Hypertension type: essential hypertension TIA (transient ischemic attack) G45.9
--- NOTE | 2019-10-01 17:11 | PM.CONSULT ---
Providers/Reason For Consult Consulting Physican/Specialty*: Dr. Kilgore Reason for Consult*: Left inguinal hernia Attending Physician: Krista Kilgore MD Primary Care Provider: Clarence Mendieta MD History of Present Illness History of Present Illness Khushi Dolan is a 84 year old female who presented to the ER yesterday with worsening left groin pain. Patient is known about her left inguinal hernia for many years but is never been symptomatic and she was not recommended surgery due to her medical issues. Yesterday she states that she was unable to work with PT due to worsening pain. Denies any nausea, vomiting, constipation or diarrhea. She has had hip surgery in July 2019. CT abdomen pelvis showed a fat-containing incarcerated inguinal hernia. Her INR was 2.4 since she is on Coumadin for atrial fibrillation. Review of Systems General: Reports: 10 or more systems reviewed and unremarkable except in HPI and below Meds/Allergies Home Medications and Allergies Home Medications Medication Instructions Recorded Confirmed Last Taken Type warfarin 4 mg tablet 4 mg PO DIRECTED #90 tab 05/06/19 10/01/19 09/30/19 Rx multivitamin 1 tab PO DAILY 05/13/19 10/01/19 09/30/19 History metoprolol succinate 100 mg 100 mg PO DAILY #90 tab 06/30/19 10/01/19 10/01/19 Rx tablet,extended release 24 hr ferrous sulfate [iron] 325 mg PO BID 08/06/19 10/01/19 09/30/19 History omeprazole 20 mg PO DAILY 08/06/19 10/01/19 09/30/19 History potassium chloride 20 meq PO DAILY 08/06/19 10/01/19 09/30/19 History hydrocodone-acetaminophen 1 - 2 tab PO Q4H PRN #40 tab 08/10/19 10/01/19 09/30/19 Rx sucralfate 1 g PO AC&BEDTIME #50 ml 08/11/19 10/01/19 Unknown Rx Allergies Allergy/AdvReac Type Severity Reaction Status Date / Time valsartan [From Diovan] Allergy Unknown Verified 10/01/19 12:16 amlodipine AdvReac Unknown Verified 10/01/19 12:16 anxiety med AdvReac Severe very sick Uncoded 08/19/19 14:01 PFSH Acute PFSH: Medical History Atrial fibrillation Hypertension Pacemaker TIA (transient ischemic attack) X2 Surgical History History of cataract surgery History of hysterectomy Hx of cholecystectomy Status post-operative repair of closed fracture of left hip Family History Other CAD (coronary artery disease) Diabetes Social History Smoking and tobacco status: never smoked Alcohol intake: never Marital status: Vitals/I&O/Wt Last Vital Signs Temp 98.2 F 10/01/19 15:48 Pulse 105 H 10/01/19 15:48 Resp 16 10/01/19 15:48 BP 148/84 10/01/19 15:48 Pulse Ox 99 10/01/19 15:48 10/01/19 10/01/19 10/01/19 06:59 14:59 22:59 Intake Total 1000 / 1000 Balance 1000 / 1000 Weight last 48 hrs Weight 150 lb Physical Exam Narrative: EXAM NARRATIVE: HEENT: Normocephalic Eye: Sclera /conjunctiva normal Abdomen: Soft to palpation incarcerated left inguinal hernia, tender, no overlying skin changes Neurological: Oriented to place person and time Skin: Intact, no lesions appreciated on gross exam A&P Assessment and plan (1) Incarcerated left inguinal hernia: 84-year-old female with incarcerated left inguinal hernia which is symptomatic. The hernia contains fat as noted on CT scan. Her INR is 2.4. We will give her vitamin K and FFP and recheck INR tomorrow. Once INR is below 2 we will plan for open repair of left inguinal hernia with mesh tomorrow. Status: Acute Coding Level of Care Code Acute Farm Equipment Service Technician for [facility] Diagnoses Incarcerated left inguinal hernia K40.30
[2019-10-01] MEDS: dextrose 5%-sod chloride 0.9% 1,000 ML 75 ML IV (18:03)
[2019-10-01] MEDS: phytonadione (ADULT) 10 mg/mL Ampule 1 mL 5 MG PO (18:03)
[2019-10-01] MEDS: morphine 4 mg/mL SDV 1 mL 2 MG IVP (23:52)
[2019-10-02] VITALS (18 sets, daily range): BP systolic 126–169; BP diastolic 73–99; PULSE 84–104; RESP 15–20; TEMP 36.5–37.4; O2SAT 94–100
--- NOTE | 2019-10-02 00:27 | P.EN_ITS ---
Event Note Event Note: Patient refusing FFP. Reports anaphylaxis last time she received this. Nurse will notify surgeon refining machine operator of October 01.
--- NOTE | 2019-10-02 00:27 | PM.EVENT ---
Event Note Event Note: Patient refusing FFP. Reports anaphylaxis last time she received this. Nurse will notify surgeon federal java developer of October 01.
--- NOTE | 2019-10-02 00:59 | PC.NURSE ---
Fresh Frozen Plasma FFP was ordered for the patient. Patient was educated on the necessity of needing to receive FFP previously to surgery due to clotting factor. Patient stated that she recently received FFP in July and stated I had a bad reaction that nearly killed me causing my blood pressure to drop. Upon further research, on August 07, 2019 stating the patient had itching, hypotension, shortness of breath, vomiting, development of rash, and hypoxic. Hospitalist was called and notified of the issue.
[2019-10-02 04:35] LABS: Basophils # 0.1 10^3/uL (0.0-0.1); Basophils % 1.1 %; Eosinophils # 0.2 10^3/uL (0.0-0.8); Eosinophils % 2.4 %; Hematocrit 39.9 % (37.0-47.0); Hemoglobin 12.4 g/dL (11.5-15.3); Lymphocytes # 1.6 10^3/uL (0.8-4.8); Lymphocytes % 25.9 %; Mean Corpuscular HGB Conc 31.1 g/dL (30.0-36.0); Mean Corpuscular Hemoglobin 29.4 pg (28.0-34.0); Mean Corpuscular Volume 94.5 fL (81-99); Mean Platelet Volume 10.2 fL (7.4-10.4); Monocytes # 0.6 10^3/uL (0.2-0.9); Neutrophils # 3.74 10^3/uL (1.8-7.7); Neutrophils % 60.3 %; Nucleated Red Blood Cells % 0 %; Platelet Count 219 10^3/cmm (130-400); Red Blood Count 4.22 10^6/uL (4.1-5.3); Red Cell Distribution Width 13.6 % (12.1-15.1); White Blood Count 6.2 10^3/uL (4.0-10.0)
[2019-10-02 04:53] LABS: Alanine Aminotransferase 11 U/L (0-33); Albumin Level 3.6 g/dL (3.5-5.2); Alkaline Phosphatase 98 IU/L (35-105); Anion Gap 10.5 (5-19); Aspartate Amino Transferase 24 U/L (0-32); Blood Urea Nitrogen 10 mg/dL (8-23); Calcium 9.4 mg/dL (8.5-10.5); Carbon Dioxide 29 mmol/L (22-29); Chloride 100 mmol/L (98-107); Globulin 2.9 g/dL (1.3-4.6); Glucose 132 mg/dL (65-115); Magnesium 1.7 mg/dL (1.7-2.3); Osmolality Calculated 280 mOsm/kg (285-295); Potassium 3.5 mmol/L (3.5-5.1); Sodium 136 mmol/L (136-145); Total Bilirubin 1.1 mg/dL (0.15-1.2); Total Protein 6.5 g/dL (6.6-8.7)
[2019-10-02 05:04] LABS: INR 1.44 (0.8-1.2)
[2019-10-02] MEDS: dextrose 5%-sod chloride 0.9% 1,000 ML 75 ML IV ×2 (06:59→23:43)
[2019-10-02] MEDS: metoprolol succinate ER (24 HR) 100 mg Tablet PO (09:45)
--- NOTE | 2019-10-02 10:29 | P.PN_ITS ---
Subjective Subjective: Interval history: No issues overnight, patient tender in the left groin Vitals/I&O/Wt Last Vital Signs Temp 98.8 F 10/02/19 10:18 Pulse 102 H 10/02/19 10:18 Resp 17 10/02/19 10:18 BP 150/84 10/02/19 10:18 Pulse Ox 96 10/02/19 10:18 10/01/19 10/02/19 10/02/19 22:59 06:59 14:59 Intake Total 1000 / 1969 970 / 1970 2.5 / 2.5 Output Total 300 / 1600 1300 / 1600 Balance 700 / 370 -330 / 370 2.5 / 2.5 Weight last 48 hrs Weight 150 lb Physical Exam Narrative: EXAM NARRATIVE: Abdomen: Incarcerated left inguinal hernia Data : 10/02/19 04:27 10/02/19 04:27 Micro: Microbiology 10/01/19 12:40 Urine Culture - Preliminary Urine,Clean Catch A&P Assessment and plan (1) Incarcerated left inguinal hernia: 84-year-old female with incarcerated left inguinal hernia which is symptomatic. The hernia contains fat as noted on CT scan. Her INR is 1.4. Open left inguinal hernia repair with mesh today Procedure, risks, benefits and alternatives have been discussed with the patient who wishes to proceed with surgery. Status: Acute Attestations Medical Necessity Statement*: Incarcerated left inguinal hernia on Coumadin Coding Level of Care Code Acute Doggy Daycare Activities Director for danitza Rodríguez Diagnoses Incarcerated left inguinal hernia K40.30
--- NOTE | 2019-10-02 10:32 | ANES.PREANE2 ---
Pre-Anesthetic Assessment Pre-Anesthetic Assessment: Height/Weight: Height 1.52 m Weight 68.039 kg Temp Pulse Resp BP Pulse Ox 98.8 F 102 H 17 150/84 96 10/02/19 10:18 10/02/19 10:18 10/02/19 10:18 10/02/19 10:18 10/02/19 10:18 Preop Diagnosis: left inguinal hernia Proposed Procedure: Operation Date: 10/02/19 11:30 Proposed Procedures p Open left Inguinal Hernia Repair(Left) - Hilario Rain MD Familial anesthetic complications: PONV Was Beta Willard taken within 24 hours: Yes Last intake: Intake Last Liquid Date 10/01/19 Last Liquid Time 10:30 Last Solid Date 09/30/19 Last Solid Time 18:00 Exam: Pre-Anes Outpt Exam: alert, oriented x 3, clear to auscultation bilaterally and regular rate & rhythm Airway: Cervical ROM: WNL MP: 3 Dentition: Other (missing) CV/HEM: CV/HEM: Afib (anticoagulated - INR improved, doesn't tolerate FFP) and HTN Comments: pacemaker GI: Comments: gastric cancer Neuropsych: Neuropsych: TIA (most recent one - months ago) Anesthetic Plan: ASA status: 3 Anesthesia: General Risk of > 500 ml blood loss (7ml/kg in children): No Meds/Allergies Current Medications: Current Medications Generic Name Dose Route Start Last Admin Trade Name Freq PRN Reason Stop Dose Admin Dextrose/Sodium Ch loride 1,000 mls @ 75 ml s/hr 10/01/19 17:45 10/02/19 07:01 Dextrose 5%-Sod Chloride 0.9% IV 75 mls/hr .[id number] SUPRIYA Infusion Metoprolol Succina te 100 mg 10/02/19 09:00 10/02/19 09:45 Toprol Xl PO 100 mg DAILY SUPRIYA Administration Morphine Sulfate 2 mg 10/01/19 17:40 10/01/19 23:52 Morphine IVP 2 mg Q4H PRN Administration SEVERE PAIN PFSH Anesthesia PFSH: Medical History Atrial fibrillation Hypertension Pacemaker TIA (transient ischemic attack) X2 Surgical History History of cataract surgery History of hysterectomy Hx of cholecystectomy Status post-operative repair of closed fracture of left hip Family History Other CAD (coronary artery disease) Diabetes Social History Smoking and tobacco status: never smoked Alcohol intake: never Marital status: Data Anesthesia CBC & Chem 7: 10/02/19 04:27 10/02/19 04:27 Other Labs: Laboratory Results - last 48 hr 10/01/19 10/01/19 10/01/19 12:14 12:14 12:14 WBC 7.8 RBC 4.22 Hgb 12.7 Hct 40.0 MCV 94.8 MCH 30.1 MCHC 31.8 RDW 13.7 Plt Count 238 MPV 10.4 Neut % (Auto) 75.0 Lymph % (Auto) 16.7 Carver % (Auto) 6.4 Eos % (Auto) 0.9 Baso % (Auto) 0.5 Neut # (Auto) 5.84 Lymph # (Auto) 1.3 Carver # (Auto) 0.5 Eos # (Auto) 0.1 Baso # (Auto) 0.0 Nucleated RBC % (auto) 0 Nucleated RBCs # 0.0 PT 25.50 H INR 2.23 H Sodium 137 Potassium 3.9 Chloride 99 Carbon Dioxide 30 H Anion Gap 11.9 BUN 14 Creatinine 0.7 GFR Calculation Not Reportable Glucose 121 H Calculated Osmolality 281 L Lactic Acid Calcium 9.4 Magnesium Total Bilirubin 0.8 AST 21 ALT 11 Alkaline Phosphatase 100 Total Protein 7.7 Albumin 3.8 Globulin 3.9 Urine Color Urine Appearance Urine pH Ur Specific [place] Urine Protein Urine Glucose (UA) Urine Ketones Urine Blood Urine Nitrate Urine Bilirubin Urine Urobilinogen Ur Leukocyte Esterase Urine RBC Urine WBC Ur Squamous Epith Cells Amorphous Sediment Urine Bacteria 10/01/19 10/01/19 10/02/19 12:14 12:40 04:27 WBC 6.2 RBC 4.22 Hgb 12.4 Hct 39.9 MCV 94.5 MCH 29.4 MCHC 31.1 RDW 13.6 Plt Count 219 MPV 10.2 Neut % (Auto) 60.3 Lymph % (Auto) 25.9 Carver % (Auto) 10.0 Eos % (Auto) 2.4 Baso % (Auto) 1.1 Neut # (Auto) 3.74 Lymph # (Auto) 1.6 Carver # (Auto) 0.6 Eos # (Auto) 0.2 Baso # (Auto) 0.1 Nucleated RBC % (auto) 0 Nucleated RBCs # 0.0 PT INR Sodium Potassium Chloride Carbon Dioxide Anion Gap BUN Creatinine GFR Calculation Glucose Calculated Osmolality Lactic Acid 1.1 Calcium Magnesium Total Bilirubin AST ALT Alkaline Phosphatase Total Protein Albumin Globulin Urine Color Yellow Urine Appearance Clear Urine pH 7 Ur Specific [place] 1.015 Urine Protein Neg Urine Glucose (UA) Norm Urine Ketones Negative Urine Blood 2+ H Urine Nitrate Negative Urine Bilirubin Neg Urine Urobilinogen Neg Ur Leukocyte Esterase Negative Urine RBC 10-15 H Urine WBC 0-4 H Ur Squamous Epith Cells 0-4 H Amorphous Sediment Not Reportable Urine Bacteria 1+ H 10/02/19 10/02/19 04:27 04:27 WBC RBC Hgb Hct MCV MCH MCHC RDW Plt Count MPV Neut % (Auto) Lymph % (Auto) Carver % (Auto) Eos % (Auto) Baso % (Auto) Neut # (Auto) Lymph # (Auto) Carver # (Auto) Eos # (Auto) Baso # (Auto) Nucleated RBC % (auto) Nucleated RBCs # PT 18.10 H INR 1.44 H Sodium 136 Potassium 3.5 Chloride 100 Carbon Dioxide 29 Anion Gap 10.5 BUN 10 Creatinine 0.7 GFR Calculation Not Reportable Glucose 132 H Calculated Osmolality 280 L Lactic Acid Calcium 9.4 Magnesium 1.7 Total Bilirubin 1.1 AST 24 ALT 11 Alkaline Phosphatase 98 Total Protein 6.5 L Albumin 3.6 Globulin 2.9 Urine Color Urine Appearance Urine pH Ur Specific [place] Urine Protein Urine Glucose (UA) Urine Ketones Urine Blood Urine Nitrate Urine Bilirubin Urine Urobilinogen Ur Leukocyte Esterase Urine RBC Urine WBC Ur Squamous Epith Cells Amorphous Sediment Urine Bacteria Micro: Microbiology 10/01/19 12:40 Urine Culture - Preliminary Urine,Clean Catch Cardiac Studies: No Data to Display
[2019-10-02] MEDS: sodium chloride 0.9% 1,000 ML 30 ML IV (10:34)
[2019-10-02] MEDS: lidocaine 1% INJ 20 mL INJECTION (11:32)
--- NOTE | 2019-10-02 11:43 | SUR.OPER ---
1110 hearing aids left in to facilitate communication in the or, removed by pt right before anesthesia. placed in a plastic cup and labeled with pt sticker, placed with pt chart.
--- NOTE | 2019-10-02 12:33 | PM.OP ---
Operative Report Date of procedure: October 02, 2019 Pre-op Diagnosis: Incarcerated left inguinal hernia Post-op Findings: Direct and indirect left inguinal hernia Procedure Done: Open repair of incarcerated left inguinal hernia with mesh Specimens removed/disposition: Hernia sac Surgeon: Hilario Rain Anesthesia: General Estimated blood loss (mL): 10 Condition: stable Disposition: PACU Procedure: The patient was taken to the operating room and intubated under general anesthesia after IV antibiotic had been administered. The abdomen was prepped and draped in a sterile manner. Using gentle manipulation the contents of the hernia sac was reduced without difficulty. A 5 cm incision was made over the left inguinal canal using 15 blade, the subcutaneous tissue, Fred's fascia divided using electrocautery until the external oblique aponeurosis was identified. Using a 15 blade, a small opening was made in the external oblique aponeurosis along the length of the fibers, this was grasped with hemostats and opened using Metzenbaum scissors medially to the external ring and laterally beyond the internal ring. The contents of inguinal canal were dissected free from the wall and a Elyssa drain was placed around it. The layers were adherent secondary to a prior hysterectomy scar. There was a large direct hernia noted. The cremasteric muscles were divided until the sac could be dissected free and reduced into the preperitoneal space. The posterior wall of the inguinal canal was extremely thinned out and was approximated using locking 0 Vicryl suture. An ultrapro mesh was cut and using 2-0 Prolene suture the medial edge of the mesh were sutured to the fascia overlying the pubic tubercle, and the suture was run to approximate the inferior edge of the mesh to the shelving edge of inguinal ligament to a point beyond the internal ring. Interrupted 2-0 Prolene suture was used to approximate the superior edge of the mesh to the internal oblique muscles. The wound was copiously irrigated with saline, good hemostasis noted and the external oblique aponeurosis was closed with running 2-0 Vicryl suture, Fred's fascia approximated using running 3-0 Vicryl suture, and skin was closed using running subcuticular 4-0 Monocryl suture and Dermabond. 20 mL of 0.5% Marcaine was infiltrated around the incision.
--- NOTE | 2019-10-02 12:34 | SUR.OPER ---
1231 hearing aids delivered to dennis cazares rn in [place]
[2019-10-02] MEDS: fentaNYL 50 mcg/mL INJ 2mL IVP (12:44)
--- NOTE | 2019-10-02 13:31 | SUR.PHASEI ---
1320 PT TO FLOOR PER CART PT ALERT NULATO WITHOUT HEARING AIDS IN PT HAS HEARING AIDS IN CUP WITH HER. ABD SOFT WITH 1 SITE TO LT LOWER ABD D/I PT TALKATIVE WITH NURSE KARLA RN HANDOFF AT BEDSIDE. BP 169/84, HR 90 16 SATS, 94%
[2019-10-02] MEDS: ondansetron 2 mg/ML SDV 2 mL 4 MG IVP (13:58)
[2019-10-02] MEDS: HYDROcodone-acetaminophen 5-325 mg Tablet 1 TAB PO (13:58)
--- NOTE | 2019-10-02 15:19 | P.PN_ITS ---
Subjective Subjective: Interval history: No acute overnight events. Doing well post operatively Medications: Reviewed: Yes Vitals/I&O/Wt Last Vital Signs Temp 98.5 F 10/02/19 13:50 Pulse 84 10/02/19 13:50 Resp 16 10/02/19 13:50 BP 150/81 10/02/19 13:50 Pulse Ox 97 10/02/19 13:50 10/02/19 10/02/19 10/02/19 06:59 14:59 22:59 Intake Total 970 / 1970 52.5 / 52.5 Output Total 1300 / 1600 210 / 210 Balance -330 / 370 -157.5 / -157.5 Weight last 48 hrs Weight 68.039 kg Physical Exam Narrative: EXAM NARRATIVE: GEN: Awake, alert and oriented, no acute distress CVS: S1S2 N RS: CTA B/L Abd: Soft, nt/nd , bs+ TITLE CLERK AUTOMOBILE: no focal neuro deficits Data : 10/02/19 04:27 10/02/19 04:27 Micro: Microbiology 10/01/19 12:40 Urine Culture - Preliminary Urine,Clean Catch A&P Assessment and plan (1) Incarcerated left inguinal hernia: Status: Acute (2) Atrial fibrillation, chronic: Status: Acute (3) Anticoagulated: Status: Acute (4) Hypertension: Status: Chronic Qualifiers: Hypertension type: essential hypertension Qualified Code(s): I10 - Essential (primary) hypertension (5) TIA (transient ischemic attack): Status: Chronic Additional A&P Information # incarcerated left inguinal hernia. Hernia consist mainly of fat. No bowel loops are seen. There is no evidence of SBO. s/p surgical resection today, doing well post op, pain is well controlled, she has been started on a diet. Plan to resume warfarin tomorrow at 6mg po qd tomorrow if okay from surgical standpoint. # h/o A fib , Continue beta-blockers. rate controlled at this time # Hypertension: no current medications on home list. May be 2/2 pain. For now use hydralazine prn for SBP >150. Start amlodipine 5mg po qd Morphine prn for pain control Full code DVT ppx: SCDs only for now Attestations Medical Necessity Statement*: post op from inguinal hernia repair Coding Level of Care Code Acute User Acceptance Tester for Chg Fwd Diagnoses Incarcerated left inguinal hernia K40.30 Atrial fibrillation, chronic I48.20 Anticoagulated Z79.01 Hypertension I10 Hypertension type: essential hypertension TIA (transient ischemic attack) G45.9
[2019-10-02] MEDS: sodium chloride 0.9% SDV 10 mL (17:24)
[2019-10-03 04:00] VITALS: BP 148/76; PULSE 102; RESP 18; TEMP 37.4; O2SAT 92
[2019-10-03 04:46] LABS: Basophils % 0.3 %; Eosinophils % 0.2 %; Hemoglobin 12.4 g/dL (11.5-15.3); Lymphocytes # 1.5 10^3/uL (0.8-4.8); Lymphocytes % 13.6 %; Mean Corpuscular Volume 96.6 fL (81-99); Mean Platelet Volume 10.7 fL (7.4-10.4); Monocytes # 1.2 10^3/uL (0.2-0.9); Monocytes % 10.8 %; Neutrophils # 8.27 10^3/uL (1.8-7.7); Neutrophils % 74.7 %; Nucleated Red Blood Cells % 0 %; Platelet Count 203 10^3/cmm (130-400); Red Blood Count 4.14 10^6/uL (4.1-5.3); Red Cell Distribution Width 13.5 % (12.1-15.1); White Blood Count 11.1 10^3/uL (4.0-10.0)
[2019-10-03 04:59] LABS: INR 1.21 (0.8-1.2)
[2019-10-03 05:10] LABS: Alanine Aminotransferase 11 U/L (0-33); Albumin Level 3.3 g/dL (3.5-5.2); Alkaline Phosphatase 99 IU/L (35-105); Anion Gap 9.3 (5-19); Aspartate Amino Transferase 19 U/L (0-32); Blood Urea Nitrogen 8 mg/dL (8-23); Calcium 8.5 mg/dL (8.5-10.5); Carbon Dioxide 32 mmol/L (22-29); Chloride 99 mmol/L (98-107); Globulin 3.6 g/dL (1.3-4.6); Glucose 143 mg/dL (65-115); Osmolality Calculated 282 mOsm/kg (285-295); Potassium 3.3 mmol/L (3.5-5.1); Sodium 137 mmol/L (136-145); Total Bilirubin 1.1 mg/dL (0.15-1.2); Total Protein 6.9 g/dL (6.6-8.7)
--- NOTE | 2019-10-03 05:47 | PC.NURSE ---
Shift Summary Patient was able to rest well through the night. Patient was able to use bsc with 680 output. Patient was educated on using a pillow to brace abd when standing and moving in bed. Patient started the shift on 2 liters of oxygen. This nurse attempted to wean patient off of oxygen as she is not on oxygen baseline. Patients saturations dropped down to 87 and was put back on 1 liter of oxygen. This nurse educated patient on using the IS to help with expanding the lungs and getting good deep breaths. Patient was receptive to education and able to return demonstration. Patient is now up in the chair and tolerating being up well. Surgical incision looks good and is C/D/I.
[2019-10-03 07:03] VITALS: BP 152/73; PULSE 89; RESP 16; TEMP 36.7; O2SAT 98
[2019-10-03] MEDS: amlodipine 5 mg Tablet PO (08:18)
[2019-10-03] MEDS: metoprolol succinate ER (24 HR) 100 mg Tablet PO (08:18)
--- NOTE | 2019-10-03 08:59 | PM.PN ---
Subjective Subjective: Interval history: Patient has been up ambulating, denies any nausea or vomiting, tolerating regular diet, pain is controlled Vitals/I&O/Wt Last Vital Signs Temp 98.1 F 10/03/19 07:03 Pulse 89 10/03/19 07:03 Resp 16 10/03/19 07:03 BP 152/73 10/03/19 07:03 Pulse Ox 98 10/03/19 07:03 10/02/19 10/03/19 10/03/19 22:59 06:59 14:59 Intake Total 1217.5 / 1850.0 580 / 1850.0 580 / 580 Output Total 100 / 890 580 / 890 Balance 1117.5 / 960.0 0 / 960.0 580 / 580 Weight last 48 hrs Weight 150 lb Physical Exam Narrative: EXAM NARRATIVE: Abdomen: Soft, tender left groin, incision clean dry and intact, has some ecchymosis of the overlying skin Data : 10/03/19 04:11 10/03/19 04:11 Micro: Microbiology 10/01/19 12:40 Urine Culture - Final Urine,Clean Catch A&P Assessment and plan (1) Status post left inguinal hernia repair: 83-year-old female postop day 1 status post left inguinal hernia repair for incarcerated hernia doing well Okay to start Coumadin Tolerating regular diet Okay to go home with home health, though the patient seemed a bit apprehensive this morning Status: Acute Attestations Medical Necessity Statement*: Status post left inguinal hernia repair Coding Level of Care Code Acute Investment Recovery Technician for [facility] F[facility] Diagnoses Status post left inguinal hernia repair Z98.890; Z87.19
[2019-10-03] MEDS: acetaminophen 325 mg Tablet 650 MG PO (09:21)
--- NOTE | 2019-10-03 10:10 | PC.NURSE ---
Removed patient's NC, patient was 95-99% on room air.
[2019-10-03 12:00] VITALS: BP 153/87; PULSE 94; RESP 16; TEMP 36.7; O2SAT 90
[2019-10-03] MEDS: ondansetron 2 mg/ML SDV 2 mL 4 MG IVP (13:47)
--- NOTE | 2019-10-03 14:45 | PM.PN ---
Subjective Subjective: Interval history: Patient is doing well postoperatively, however complains of some nausea. States she feels somewhat weak and is very uncertain if she will be able to go home and take care of her . Her has advanced dementia and he is not in a position to take care of her needs, she is undecided if she feels safe enough and strong enough to go home today. INR today is at 1.4, Coumadin has been resumed. Medications: Reviewed: Yes Vitals/I&O/Wt Last Vital Signs Temp 98.1 F 10/03/19 12:00 Pulse 94 10/03/19 12:00 Resp 16 10/03/19 12:00 BP 153/87 10/03/19 12:00 Pulse Ox 90 10/03/19 12:00 10/02/19 10/03/19 10/03/19 22:59 06:59 14:59 Intake Total 1217.5 / 1270.0 580 / 1850.0 580 / 580 Output Total 100 / 310 580 / 890 700 / 700 Balance 1117.5 / 960.0 0 / 960.0 -120 / -120 Physical Exam Narrative: EXAM NARRATIVE: GEN: Awake, alert and oriented, no acute distress CVS: S1S2 N RS: CTA B/L Abd: Soft, nt/nd , bs+ SALES REPRESENTATIVE RURAL POWER: no focal neuro deficits Data : 10/03/19 04:11 10/03/19 04:11 Micro: Microbiology 10/01/19 12:40 Urine Culture - Final Urine,Clean Catch A&P Assessment and plan (1) Incarcerated left inguinal hernia: Status: Resolved (2) Atrial fibrillation, chronic: Status: Acute (3) Anticoagulated: Status: Acute (4) Hypertension: Status: Chronic Qualifiers: Hypertension type: essential hypertension Qualified Code(s): I10 - Essential (primary) hypertension (5) TIA (transient ischemic attack): Status: Chronic Additional A&P Information # incarcerated left inguinal hernia. - Hernia consist mainly of fat. No bowel loops are seen. There is no evidence of SBO. s/p surgical resection on October 01, doing well post op, pain is well controlled, she has been started on a diet. - She is however complaining of some nausea today. States feeling deconditioned and weak and is hesitant to return home. We will get a PT OT evaluation. States she needs some time to decide whether she wants to go home versus transition to SNF for now. - Resume warfarin at 6mg po qd. # h/o A fib , Continue Toprol XL # Hypertension. Started amlodipine 5mg po qd , increase to 10mg po qd Morphine prn for pain control Full code DVT ppx: SCDs only for now Attestations Medical Necessity Statement*: Physical therapy evaluation for deconditioning, post op care Coding Level of Care Code Acute Wood Model Maker for [facility] Fwd Diagnoses Incarcerated left inguinal hernia K40.30 Atrial fibrillation, chronic I48.20 Anticoagulated Z79.01 Hypertension I10 Hypertension type: essential hypertension TIA (transient ischemic attack) G45.9
[2019-10-03] MEDS: warfarin 3 mg Tablet 6 MG PO (15:00)
[2019-10-03 15:28] VITALS: BP 118/62; PULSE 92; RESP 16; TEMP 36.8; O2SAT 94
[2019-10-03 20:00] VITALS: BP 112/65; PULSE 84; RESP 17; TEMP 36.8; O2SAT 94
[2019-10-03 20:30] VITALS: PULSE 87; RESP 18; O2SAT 94
[2019-10-04] VITALS (8 sets, daily range): BP systolic 128–164; BP diastolic 51–82; PULSE 86–103; RESP 12–18; TEMP 36.6–37.6; O2SAT 92–95
--- NOTE | 2019-10-04 02:01 | PC.NURSE ---
This nurse reassessed vitals since BP was elevated. BP is 127/67, previously 164/51. Patients oxygen saturations were down to 87. Patient was put on 2 liters of oxygen with NC and saturations are now 93. Patient was educated on using IS and encouraged to use IS every hour to two hours. Patient has not voided during this shift, patient said she does not need to go. This nurse encouraged patient to drink water and educated on the importance of hydration and having good urination output. Will continue to monitor and reinforce.
[2019-10-04 05:05] LABS: Basophils % 0.3 %; Eosinophils % 0.4 %; Hematocrit 37.2 % (37.0-47.0); Hemoglobin 11.8 g/dL (11.5-15.3); Lymphocytes # 1.4 10^3/uL (0.8-4.8); Lymphocytes % 12.4 %; Mean Corpuscular HGB Conc 31.7 g/dL (30.0-36.0); Mean Corpuscular Hemoglobin 30.3 pg (28.0-34.0); Mean Corpuscular Volume 95.4 fL (81-99); Mean Platelet Volume 10.8 fL (7.4-10.4); Monocytes # 1.1 10^3/uL (0.2-0.9); Monocytes % 9.9 %; Neutrophils # 8.45 10^3/uL (1.8-7.7); Neutrophils % 76.5 %; Nucleated Red Blood Cells % 0 %; Platelet Count 187 10^3/cmm (130-400); Red Cell Distribution Width 13.4 % (12.1-15.1)
[2019-10-04 05:18] LABS: INR 1.38 (0.8-1.2)
[2019-10-04 05:26] LABS: Alanine Aminotransferase 13 U/L (0-33); Alkaline Phosphatase 99 IU/L (35-105); Anion Gap 8.1 (5-19); Aspartate Amino Transferase 26 U/L (0-32); Blood Urea Nitrogen 12 mg/dL (8-23); Calcium 9.2 mg/dL (8.5-10.5); Carbon Dioxide 30 mmol/L (22-29); Chloride 98 mmol/L (98-107); Globulin 3.1 g/dL (1.3-4.6); Glucose 112 mg/dL (65-115); Osmolality Calculated 273 mOsm/kg (285-295); Potassium 3.1 mmol/L (3.5-5.1); Sodium 133 mmol/L (136-145); Total Bilirubin 1.6 mg/dL (0.15-1.2); Total Protein 6.1 g/dL (6.6-8.7)
--- NOTE | 2019-10-04 06:39 | PC.NURSE ---
Bladder scan Patient had 250 output. Patient sat on the toiled for a long while trying to void with no success. Bladder scan showed 434 retaining.
[2019-10-04] MEDS: amlodipine 10 mg Tablet PO (08:43)
[2019-10-04] MEDS: metoprolol succinate ER (24 HR) 100 mg Tablet PO (08:43)
--- NOTE | 2019-10-04 09:35 | PC.SOCIAL ---
IMM Page 2 of IMM explained to patient. Initialed, dated, and timed and placed in chart. Copy provided to patient.
--- NOTE | 2019-10-04 09:37 | PM.PN ---
Subjective Subjective: Interval history: Patient has been ambulating with physical therapy, had a bowel movement today, denies significant abdominal pain. Feels like she is ready to go home Vitals/I&O/Wt Last Vital Signs Temp 97.8 F 10/04/19 07:47 Pulse 86 10/04/19 07:47 Resp 18 10/04/19 07:47 BP 142/79 10/04/19 07:47 Pulse Ox 95 10/04/19 04:00 10/03/19 10/04/19 10/04/19 22:59 06:59 14:59 Intake Total 240 / 1060 240 / 1060 Output Total 250 / 950 Balance 240 / 110 -10 / 110 Physical Exam Narrative: EXAM NARRATIVE: Abdomen: Soft, nondistended, minimally tender, incision clean dry and intact left groin Data : 10/04/19 04:36 10/04/19 04:36 Micro: Microbiology 10/01/19 12:40 Urine Culture - Final Urine,Clean Catch A&P Assessment and plan (1) Status post left inguinal hernia repair: Doing well DC home today Follow-up 2 weeks Status: Acute Attestations Medical Necessity Statement*: DC home today Coding Level of Care Code Acute Final Dressing Cutter for [facility] Fwd Diagnoses Status post left inguinal hernia repair Z98.890; Z87.19
[2019-10-04] MEDS: warfarin 3 mg Tablet 6 MG PO (15:54)
--- NOTE | 2019-10-04 16:25 | P.PN_ITS ---
Subjective Subjective: Interval history: Pain is adequately controlled. Patient feels well. She had transient urinary retention overnight for which she needed a straight cath. Urine culture has been negative. Postop leukocytosis noted at 11, stable. Operated site appears healthy. INR subtherapeutic, will give another 6 mg of Coumadin today and recheck INR in the morning. He has had a bow el movement. Participated with PT. Medications: Reviewed: Yes Vitals/I&O/Wt Last Vital Signs Temp 99.1 F 10/04/19 16:00 Pulse 98 10/04/19 16:00 Resp 18 10/04/19 16:00 BP 137/82 10/04/19 16:00 Pulse Ox 92 10/04/19 11:08 10/04/19 10/04/19 10/04/19 06:59 14:59 22:59 Intake Total 240 / 1060 200 / 200 Output Total 250 / 950 Balance -10 / 110 200 / 200 Physical Exam Narrative: EXAM NARRATIVE: GEN: Awake, alert and oriented, no acute distress CVS: S1S2 N RS: CTA B/L Abd: Soft, nt/nd , bs+ PROSTHODONTIST/EDUCATOR: no focal neuro deficits Data : 10/04/19 04:36 10/04/19 04:36 A&P Assessment and plan (1) Incarcerated left inguinal hernia: Status: Resolved (2) Atrial fibrillation, chronic: Status: Acute (3) Anticoagulated: Status: Acute (4) Hypertension: Status: Chronic Qualifiers: Hypertension type: essential hypertension Qualified Code(s): I10 - Essential (primary) hypertension (5) TIA (transient ischemic attack): Status: Chronic Additional A&P Information # incarcerated left inguinal hernia. - Hernia consist mainly of fat. s/p surgical resection on October 01, doing well post op, pain is well controlled, she has been started on a diet. She is had a bowel movement -Patient has initially wanted to go home, however now she is having second thoughts. 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 She will be unable to do any heavy lifting after her surgery for a little bit, and her is in no condition to take care of her. She is now requesting to be discharged to senior care instead. [facility] has been faxed. - Resumed warfarin at 6mg po qd on 10/02. recheck INR in am # h/o A fib , Continue Toprol XL # Hypertension. Started amlodipine 5mg po qd , increase to 10mg po qd. BP better controlled now Morphine prn for pain control Full code DVT ppx: SCDs only for now Attestations Medical Necessity Statement*: pending disposition, as above, INR monitoring Coding Level of Care Code Acute Professor Of Theology for [facility] Fwd Diagnoses Incarcerated left inguinal hernia K40.30 Atrial fibrillation, chronic I48.20 Anticoagulated Z79.01 Hypertension I10 Hypertension type: essential hypertension TIA (transient ischemic attack) G45.9
[2019-10-05] VITALS (7 sets, daily range): BP systolic 122–152; BP diastolic 61–79; PULSE 88–105; RESP 16–18; TEMP 36.8–37.3; O2SAT 91–96
[2019-10-05] MEDS: lanolin oint 7 gm 1 APPLIC TOPICAL (03:55)
[2019-10-05 06:29] LABS: Basophils % 0.3 %; Eosinophils # 0.2 10^3/uL (0.0-0.8); Eosinophils % 1.7 %; Hematocrit 35.3 % (37.0-47.0); Hemoglobin 11.1 g/dL (11.5-15.3); Lymphocytes # 1.1 10^3/uL (0.8-4.8); Lymphocytes % 12.7 %; Mean Corpuscular HGB Conc 31.4 g/dL (30.0-36.0); Mean Corpuscular Hemoglobin 29.4 pg (28.0-34.0); Mean Corpuscular Volume 93.4 fL (81-99); Mean Platelet Volume 10.9 fL (7.4-10.4); Monocytes # 0.9 10^3/uL (0.2-0.9); Monocytes % 9.9 %; Neutrophils # 6.71 10^3/uL (1.8-7.7); Neutrophils % 75.1 %; Nucleated Red Blood Cells % 0 %; Platelet Count 196 10^3/cmm (130-400); Red Blood Count 3.78 10^6/uL (4.1-5.3); Red Cell Distribution Width 13.3 % (12.1-15.1)
[2019-10-05 06:50] LABS: INR 1.35 (0.8-1.2)
[2019-10-05 07:02] LABS: Alanine Aminotransferase 15 U/L (0-33); Alkaline Phosphatase 106 IU/L (35-105); Anion Gap 10.2 (5-19); Aspartate Amino Transferase 28 U/L (0-32); Blood Urea Nitrogen 11 mg/dL (8-23); Calcium 9.2 mg/dL (8.5-10.5); Carbon Dioxide 30 mmol/L (22-29); Chloride 98 mmol/L (98-107); Globulin 3.1 g/dL (1.3-4.6); Glucose 93 mg/dL (65-115); Osmolality Calculated 276 mOsm/kg (285-295); Potassium 3.2 mmol/L (3.5-5.1); Sodium 135 mmol/L (136-145); Total Bilirubin 1.2 mg/dL (0.15-1.2); Total Protein 6.1 g/dL (6.6-8.7)
[2019-10-05] MEDS: metoprolol succinate ER (24 HR) 100 mg Tablet PO (08:26)
[2019-10-05] MEDS: amlodipine 10 mg Tablet PO (08:26)
[2019-10-05] MEDS: warfarin 3 mg Tablet 6 MG PO (14:48)
--- NOTE | 2019-10-05 15:18 | CTR_ITS ---
PROCEDURE INFORMATION: Exam: CT Abdomen And Pelvis With Contrast Exam date and time: 10/05/2019 3:25 PM Age: 84 years old Clinical indication: Mass, lump, or swelling; Other: Pubic swelling; Prior surgery; Surgery type: Hyst; Patient HX: HX of stomach cancer; Additional info: , Redness, ten derness, assess for any abscess TECHNIQUE: Imaging protocol: Computed tomography of the abdomen and pelvis with intravenous contrast. Radiation optimization: All CT scans at this facility use at least one of these dose optimization techniques: automated exposure control; mA and/or kV adjustment per patient size (includes targeted exams where dose is matched to clinical indication); or iterative reconstruction. Contrast material: OMNI 300; Contrast volume: 95 ml; Contrast route: INTRAVENOUS (IV); COMPARISON: CT abdomen pelvis w con* [id number] 10/01/2019 1:19 PM RADIATION DOSE METRICS: Total DLP (mGy-cm): 884.33 FINDINGS: Tubes, catheters and devices: A dual lead pacemaker is present. Lungs: Bilateral posterior pulmonary partial passive atelectasis. Pleural space: Moderate bilateral pleural effusions. Heart: Mitral annular calcification is present. Liver: Normal. No mass. Gallbladder and bile ducts: The gallbladder is surgically absent, with metallic clips in the gallbladder fossa. Pancreas: Normal. No ductal dilation. Spleen: Normal. No splenomegaly. Adrenals: Normal. No mass. Kidneys and ureters: Normal. No hydronephrosis. Stomach and bowel: Unremarkable. No obstruction. No mucosal thickening. Appendix: No evidence of appendicitis. Intraperitoneal space: No definite free pneumoperitoneum. Vasculature: Left pelvic phlebolith. Moderate aortic atherosclerotic calcification without aneurysm. The iliac arteries show moderate bilateral atherosclerotic calcifications without evidence of aneurysm. Mild aortic valvular calcification is present. Lymph nodes: No enlarged lymph nodes. Bladder: Unremarkable as visualized. Reproductive: The uterus is status post hysterectomy. The ovaries are not identified. Bones/joints: Left sliding screw hip prosthesis with partially imaged interlocking intramedullary darek. T12-L1, L3-L4 and L4-L5 degenerative disc disease. Click lower lumbar Soft tissues: Apparent left inguinal hernia repair. Left inguinal septated gas fluid collection with a surrounding thin wall measuring 6.1 x 5.0 x 2.9 cm. Ectopic gas is present in the region of the left inguinal ring, left abdominal wall, extraperitoneal soft tissues, and intra-abdominal extravesical soft tissues. A small right inguinal hernia is present containing only intra-abdominal fat. CT/CT abdomen pelvis w con* [id number] IMPRESSION: 1. Apparent left inguinal hernia repair. 2. Left inguinal soft tissue abscess. 3. Left lower abdominal wall procedural site soft tissue edema and intra-abdominal and extra-abdominal ectopic gas. This may represent postsurgical findings, however, cellulitis/emphysematous cellulitis is not excluded. Clinical correlation is recommended. 4. Prior cholecystectomy. 5. Prior hysterectomy. 6. Moderate bilateral pleural effusions. Radiation Dose CTDIVOL = (mGy): DLP = 884.33 (mGy-cm)
[2019-10-05] MEDS: acetaminophen 325 mg Tablet 650 MG PO (15:19)
[2019-10-05] MEDS: iohexol 300 mg/mL 100 mL Btl IV (15:41)
--- NOTE | 2019-10-05 16:38 | P.PN_ITS ---
Subjective Subjective: Interval history: She states that she is doing all right. Has been concerned about going home as she lives with her elderly disabled , and so due to hospitalization, surgery, deconditioning, she is very much interested in pursuing rehabilitation at senior care facility prior to return home. Noted to have some tenderness just above the pubis today with some progression of redness. Vitals/I&O/Wt Last Vital Signs Temp 99.2 F 10/05/19 16:00 Pulse 104 H 10/05/19 16:00 Resp 17 10/05/19 16:00 BP 131/63 10/05/19 16:00 Pulse Ox 94 10/05/19 16:00 10/05/19 10/05/19 10/05/19 06:59 14:59 22:59 Intake Total 840 / 1280 240 / 240 Output Total 1000 / 1400 350 / 350 400 / 750 Balance -160 / -120 -110 / -110 -400 / -510 Physical Exam Const: COMMON NORMALS: no acute distress and patient oriented x3 HENMT: COMMON NORMALS: oropharynx normal Neck/C-Spine: COMMON NORMALS: no JVD Resp: COMMON NORMALS: normal respiratory effort and clear to auscultation kilo aterally AUSCULTATION: clear to auscultation bilaterally Cardio: COMMON NORMALS: no JVD, regular rhythm, S1 normal heart sound present, S2 normal heart sound present and No murmurs present (Cardio) RHYTHM: regular rhythm HEART SOUNDS: S1 normal heart sound present and S2 normal heart sound present GI: COMMON NORMALS: Normal to inspection, nondistended, normoactive bowel sounds present, Soft to palpation and non-tender PALPATION: Yes Soft to palpation OTHER: Left lower abdominal horizontal scar appears clean, without bleeding, no purulent discharge. No surrounding erythema. Does have erythema, some soft tissue edema, some tenderness on palpation of pubic area just below the hypogastrium. Extremity: COMMON NORMALS: no joint enlargement and no pedal edema Neuro: COMMON NORMALS: patient oriented x3 and moves all extremities Skin: COMMON NORMALS: no rashes or lesions noted GENERAL SKIN EXAM: no rashes or lesions noted Data : 10/05/19 05:47 10/05/19 05:47 A&P Assessment and plan (1) Incarcerated left inguinal hernia: Currently concern for cellulitis, possibly some seroma following repair of incarcerated hernia. There is soft tissue edema, appears perhaps some postoperative gas changes as well over mons pubis, as well as just above/at the lower hypogastrium. She has no leukocytosis, but today heart rate is little bit faster 104-105. Temp 99.[address] scan, appreciate surgical reassessment. We will go ahead and start on doxycycline at this time due to concern for cellulitis. Appreciate surgery recommendations whether or not needs any additional interventional and drainage, etc. She was otherwise accepted for rehabilitation senior care facility with the plans for discharge somewhat delayed due to the finding of some worsening in the cellulitis. Postoperative seroma. Discussed w surgery call from [facility] with concern for septation, gas and surrounding fat induration concerning whether or not there is abscess. There is no bowel noted in the collection. Surgery will reassess. Will hold DC for now. Status: Resolved (2) Atrial fibrillation, chronic: INR 1.35. Received 6 mg warfarin. Status: Acute (3) Anticoagulated: Status: Acute (4) Hypertension: Cont amlodipine. BPs at goal. Status: Chronic Qualifiers: Hypertension type: essential hypertension Qualified Code(s): I10 - Essential (primary) hypertension (5) TIA (transient ischemic attack): Status: Chronic Additional A&P Information Mild hypokalemia: Replace. Full code DVT ppx: SCDs only for now Attestations Medical Necessity Statement*: Continue admission for assessment of management following repair of incarcerated left inguinal hernia, soft tissue cellulitis, postoperative fluid collection. Coding Level of Care Code Acute Court Magistrate for [facility] Diagnoses Incarcerated left inguinal hernia K40.30 Atrial fibrillation, chronic I48.20 Anticoagulated Z79.01 Hypertension I10 Hypertension type: essential hypertension TIA (transient ischemic attack) G45.9
--- NOTE | 2019-10-05 17:36 | PM.PN ---
Subjective Subjective: Interval history: patient feels well, denies any significant increase in pain Vitals/I&O/Wt Last Vital Signs Temp 99.2 F 10/05/19 16:00 Pulse 104 H 10/05/19 16:00 Resp 17 10/05/19 16:00 BP 131/63 10/05/19 16:00 Pulse Ox 94 10/05/19 16:00 10/05/19 10/05/19 10/05/19 06:59 14:59 22:59 Intake Total 840 / 1280 240 / 240 Output Total 1000 / 1400 350 / 750 400 / 750 Balance -160 / -120 -110 / -510 -400 / -510 Physical Exam Narrative: EXAM NARRATIVE: Abdomen: Incision well-healed, patient has a fluid collection inferior to the incision with overlying skin that appears slightly red but is blanchable. This is similar to the redness yesterday. Data : 10/05/19 05:47 10/05/19 05:47 A&P Assessment and plan (1) Status post left inguinal hernia repair: Patient is doing well, clinically no significant changes but she has been tachycardic with a low-grade fever of 99.2 this afternoon. We will therefore keep her overnight and hold off on discharge. Status: Acute Attestations Medical Necessity Statement*: Left inguinal hernia repair Coding Level of Care Code Acute Field Research Associate for [facility] Diagnoses Status post left inguinal hernia repair Z98.890; Z87.19
[2019-10-05] MEDS: doxycycline 100 MG in sodium chloride 0.9% (plus) 100 ML IV (17:49)
[2019-10-06] VITALS: BP 131/77; PULSE 92; RESP 18; TEMP 36.6; O2SAT 96
[2019-10-06 04:00] VITALS: BP 128/60; PULSE 95; RESP 16; TEMP 36.6; O2SAT 98
[2019-10-06] MEDS: doxycycline 100 MG in sodium chloride 0.9% (plus) 100 ML IV (04:42)
[2019-10-06 05:30] LABS: Basophils # 0.1 10^3/uL (0.0-0.1); Basophils % 1.1 %; Eosinophils # 0.3 10^3/uL (0.0-0.8); Eosinophils % 4.7 %; Hematocrit 36.3 % (37.0-47.0); Hemoglobin 11.4 g/dL (11.5-15.3); Lymphocytes # 0.9 10^3/uL (0.8-4.8); Mean Corpuscular HGB Conc 31.4 g/dL (30.0-36.0); Mean Corpuscular Hemoglobin 29.2 pg (28.0-34.0); Mean Corpuscular Volume 93.1 fL (81-99); Mean Platelet Volume 10.4 fL (7.4-10.4); Monocytes # 0.7 10^3/uL (0.2-0.9); Monocytes % 10.9 %; Neutrophils # 4.15 10^3/uL (1.8-7.7); Neutrophils % 67.8 %; Nucleated Red Blood Cells % 0 %; Platelet Count 211 10^3/cmm (130-400); Red Cell Distribution Width 13.3 % (12.1-15.1); White Blood Count 6.1 10^3/uL (4.0-10.0)
[2019-10-06 05:56] LABS: Alanine Aminotransferase 19 U/L (0-33); Albumin Level 2.9 g/dL (3.5-5.2); Alkaline Phosphatase 111 IU/L (35-105); Aspartate Amino Transferase 37 U/L (0-32); Blood Urea Nitrogen 10 mg/dL (8-23); Calcium 9.4 mg/dL (8.5-10.5); Carbon Dioxide 31 mmol/L (22-29); Chloride 98 mmol/L (98-107); Globulin 3.2 g/dL (1.3-4.6); Glucose 95 mg/dL (65-115); Osmolality Calculated 280 mOsm/kg (285-295); Sodium 137 mmol/L (136-145); Total Bilirubin 0.9 mg/dL (0.15-1.2); Total Protein 6.1 g/dL (6.6-8.7)
--- NOTE | 2019-10-06 06:29 | PC.NURSE ---
Sonali Linda: Call from Sonali Linda;patients sister in law. She is not on patients form to give info with but patient verbalized to this nurse it was okay. Apparently she called the other day but no changes were made in the system for her to be able to get information. Will update the day shift nurse.
[2019-10-06 07:12] VITALS: BP 137/77; PULSE 91; RESP 16; TEMP 37; O2SAT 92
[2019-10-06] MEDS: metoprolol succinate ER (24 HR) 100 mg Tablet PO (07:45)
[2019-10-06] MEDS: amlodipine 10 mg Tablet PO (07:45)
[2019-10-06] MEDS: potassium chloride oral liq 20 mEq/15 mL UDC 40 MEQ PO (08:47)
[2019-10-06] MEDS: potassium chloride ER 10 mEq Tablet 20 MEQ PO (08:47)
--- NOTE | 2019-10-06 10:07 | PC.SOCIAL ---
IMM Updated Updated pt on Pg 2 IMM. No questions voiced. Provided pt a copy. Signed, dated, & timed copy in chart.
[2019-10-06 10:53] VITALS: BP 112/67; PULSE 102; RESP 16; TEMP 36.7; O2SAT 95
--- NOTE | 2019-10-06 12:04 | PM.DCS ---
Discharge Providers Date of Admission: 10/01/19 14:32 Date of Discharge: October 06, 2019 Attending Provider at Admission: Krista Kilgore MD Attending Provider at Discharge: Perry Savage Primary Care Provider: Clarence Mendieta MD Diagnoses at Discharge Discharge Diagnosis (1) Status post left inguinal hernia repair: Status: Acute (2) Cellulitis: Status: Acute (3) Atrial fibrillation: Status: Chronic Qualifiers: Atrial fibrillation type: paroxysmal Qualified Code(s): I48.0 - Paroxysmal atrial fibrillation (4) Anticoagulated: Status: Acute Problem details: Needs INR rechecked. Reason for Visit Reason for Visit: lower abd pain Hospital Course Hospital Course: Very pleasant 84-year-old lady with history of atrial fibrillation, on chronic anticoagulation with warfarin, HTN, TIA, PPM, was admitted for assessment management after presenting with lower abdominal pain, found with left fat-containing incarcerated her inguinal hernia which was surgically repaired due to persistent pain after reversal of warfarin with vitamin K and FFP. She was continued on medications for atrial fibrillation and hypertension, and vital signs remained stable in the hospital. Postoperatively remained afebrile, although temperature did rise up as high as 99.2F, without leukocytosis, but with noted area of cellulitis in the pubic area. Wound has remained clean. Imaged with CT due to some residual tenderness in the area, and found to have fluid collection on reassessment by surgery said to be a seroma. For cellulitis she was started on doxycycline. Monitored additional day, remaining afebrile, without leukocytosis, with improvement in cellulitis symptoms/erythema, and otherwise remains stable, maintaining oral intake, and states that she is ready to discharge to half-way facility to undergo additional rehabilitation prior to returning home. On reevaluation by surgery today she is doing well, and is ready for discharge. Please follow-up progress on improvement of cellulitis, seroma. Will need to follow-up with surgery in office at scheduled appointment. She needs follow-up INR recheck as INR has been subtherapeutic, and due to this has received several slightly higher doses of warfarin at 6 mg for several days prior to discharge. At this time will continue at 4 mg. Please adjust dosing based on INR with target of 2-3. Physical Exam Const: COMMON NORMALS: no acute distress and patient oriented x3 HENMT: COMMON NORMALS: oropharynx normal Neck/C-Spine: COMMON NORMALS: no JVD Resp: COMMON NORMALS: normal respiratory effort and clear to auscultation bilaterally AUSCULTATION: clear to auscultation bilaterally Cardio: COMMON NORMALS: no JVD, regular rhythm, S1 normal heart sound present, S2 normal heart sound present and No murmurs present (Cardio) RHYTHM: regular rhythm HEART SOUNDS: S1 normal heart sound present and S2 normal heart sound present GI: COMMON NORMALS: Normal to inspection, nondistended, normoactive bowel sounds present, Soft to palpation and non-tender PALPATION: Yes Soft to palpation OTHER: Left lower abdominal horizontal scar appears clean, without bleeding, no purulent discharge. No surrounding erythema. Erythema of suprapubic and pubic region is better. Pale red. Slightly tender to palpation, but better. Extremity: COMMON NORMALS: no joint enlargement and no pedal edema Neuro: COMMON NORMALS: patient oriented x3 and moves all extremities Skin: COMMON NORMALS: no rashes or lesions noted GENERAL SKIN EXAM: no rashes or lesions noted Discharge Data Data Completed and Pending: Completed Studies During Hospitalization Category Date Time Status CT abdomen pelvis w con* [id number] Urge nt Cat Scan 10/01/19 11:[address] abdomen pelvis w con* [id number] Urge nt Cat Scan 10/05/19 15:18 Completed XR chest 1V mari ble [id number] Urgent Exams 10/01/19 11:48 Completed Pathology: Surgic al [PTH] Routine Pth 10/02/19 12:22 Completed Pending at discharge Category Date Time Status Complete Blood Co unt w/Auto AM LABS Lab 10/07/19 04:00 Ordered Complete Blood Co unt w/Auto AM LABS Lab 10/08/19 04:00 Ordered Comprehensive Met abolic Panel AM LA BS Lab 10/07/19 04:00 Ordered Comprehensive Met abolic Panel AM LA BS Lab 10/08/19 04:00 Ordered Labs from last 24 hours 10/06/19 10/06/19 05:07 05:07 WBC 6.1 RBC 3.90 L Hgb 11.4 L Hct 36.3 L MCV 93.1 MCH 29.2 MCHC 31.4 RDW 13.3 Plt Count 211 MPV 10.4 Neut % (Auto) 67.8 Lymph % (Auto) 15.0 [place] % (Auto) 10.9 Eos % (Auto) 4.7 Baso % (Auto) 1.1 Neut # (Auto) 4.15 Lymph # (Auto) 0.9 [place] # (Auto) 0.7 Eos # (Auto) 0.3 Baso # (Auto) 0.1 Nucleated RBC % (a uto) 0 Nucleated RBCs # 0.0 Sodium 137 Potassium 3.0 L Chloride 98 Carbon Dioxide 31 H Anion Gap 11.0 BUN 10 Creatinine 0.7 GFR Calculation Not Reportable Glucose 95 Calculated Osmolal ity 280 L Calcium 9.4 Total Bilirubin 0.9 AST 37 H ALT 19 Alkaline Phosphata se 111 H Total Protein 6.1 L Albumin 2.9 L Globulin 3.2 Vitals: Last Vital Signs Temp 98.1 F 10/06/19 10:53 Pulse 102 H 10/06/19 10:53 Resp 16 10/06/19 10:53 BP 112/67 10/06/19 10:53 Pulse Ox 95 10/06/19 10:53 Discharge Plan Discharge Patient Disposition: Xfer SNF Condition: Stable Prescriptions: New nystatin 100,000 unit/gram cream 1 applic TOPICAL BID 7 Days Qty: 15 RF: 0 doxycycline hyclate 100 mg capsule 100 mg PO BID 7 Days Qty: 14 RF: 0 Continued multivitamin Tablet 1 tab PO DAILY RF: 0 warfarin 4 mg tablet 4 mg PO DIRECTED Qty: 90 RF: 3 metoprolol succinate [Toprol XL] 100 mg tablet extended release 24 hr 100 mg PO DAILY Qty: 90 RF: 3 ferrous sulfate [iron] 325 mg (65 mg iron) Tablet 325 mg PO BID RF: 0 omeprazole 20 mg Capsule,Delayed Release(Dr/Ec) 20 mg PO DAILY RF: 0 potassium chloride 20 mEq Tablet Extended Release 20 meq PO DAILY RF: 0 hydrocodone-acetaminophen 5-325 mg tablet 1 - 2 tab PO Q4H PRN (Reason: pain) Qty: 40 RF: 0 sucralfate 100 mg/mL Suspension 1 g PO AC&BEDTIME Qty: 50 RF: 0 Discharge Orders: Discharge Order (Routine); Ordered 10/06/19 Ordered By: Perry Savage Referrals: [facility] [Outside] [facility] [Outside] Clarence Mendieta MD [Primary Care Provider] - 10/12/19 3:15 pm Hilario Rain MD [Physician] - 10/19/19 11:15 am Discharge Diet: Advance as tolerated Discharge Activity: Increase activity as tolerated and As per PT/OT instructions Patient Instructions: Doxycycline (By mouth), Nystatin (On the skin), Open Herniorrhaphy (DC), Laparoscopic Herniorrhaphy (DC) Activity Restrictions/Additional Instructions: 1. Up and walking as tolerated. 2. Ok to shower in 48 hours after surgery. 3. Remove Dermabond dressing in 7-10 days. 4. Do not lift more than 10 pounds. 5. Do not operate heavy machinery or drive while using pain medications. 6. Advised to return to ER or contact my office if there are any signs of infection like, increasing pain, fevers, chills, redness or drainage of pus. Please continue warfarin. Recheck INR in 3 days. Adjust warfarin dose based on INR. Target INR 2-3. Reassess area of cellulitis and seroma in the suprapubic region. In case of worsening/progression, high fevers, severe pain, or other abnormality, please seek additional reevaluation of the seroma to make sure it is not transforming into an abscess. Make sure to follow-up with surgery. Discharge Attestations Time Spent in Discharge Care*: greater than 30 min Status at Discharge: Cognitive status at discharge: cognitively intact, Behavioral status at discharge: cooperative, Quality Metrics Clinical Quality Measures During this hospital stay, did patient experience: None Coding Level of Care Code Acute Office Executive for Davonte Rodríguez Diagnoses Status post left inguinal hernia repair Z98.890; Z87.19 Cellulitis L03.90 Atrial fibrillation I48.0 Atrial fibrillation type: paroxysmal Anticoagulated Z79.01
[2019-10-06 13:24] VITALS: BP 112/67; PULSE 102; RESP 16; TEMP 36.7; O2SAT 95
== END 2019-10-06 12:55 | disposition skilled nursing facility (03) | DRG 351 ==
LOC: ER 14:45 → MEDSURG 20:21
PROVIDERS: Physician Assistant; Surgery; Admitting Provider Student in an Organized Health Care Education/Training Program; PCP Internal Medicine; Visit Provider Internal Medicine
PROC: 0YU60JZ Supplement Left Inguinal Region with Synthetic Substitute, Open Approach (ICD-10-PCS; principal; 2019-10-02 11:30)
DX: K40.30 Unilateral inguinal hernia, with obstruction, without gangrene, not specified as recurrent (principal); I48.20 Chronic atrial fibrillation, unspecified; L03.314 Cellulitis of groin; I10 Essential (primary) hypertension; Z95.0 Presence of cardiac pacemaker; Z86.73 Personal history of transient ischemic attack (TIA), and cerebral infarction without residual deficits; Z79.01 Long term (current) use of anticoagulants; R00.0 Tachycardia, unspecified; Z79.891 Long term (current) use of opiate analgesic
CPT/HCPCS: 12345; 36415; 51702; 51798; 71045; 74177; 80053; 81001; 83605; 83735; 85025; 85610; 87086; 88302; 93005; 96375; 97110; 97116; 97161; 99284; J0690; J2270; J2405; J2704; J2710; J3010; J3430; J3490; J7030; Q9967

== ENCOUNTER 2019-10-08 07:34 | Emergency (ER) | payer MEDICARE, OTHER, SELFPAY ==
[2019-10-08] VITALS (8 sets, daily range): BP systolic 120–144; BP diastolic 80–89; PULSE 97–125; RESP 13–20; TEMP 36.7; O2SAT 93–97; BMI 31.1
--- NOTE | 2019-10-08 | CTR_ITS ---
PROCEDURE INFORMATION: Exam: CT Head Without Contrast Exam date and time: 10/08/2019 7:43 AM Age: 84 years old Clinical indication: Weakness, extremity; Right; Additional info: Possible stroke right side weakness loss of speech - had hernia surgery last week and takes blood thinners TECHNIQUE: Imaging protocol: Computed tomography of the head without contrast. Radiation optimization: All CT scans at this facility use at least one of these dose optimization techniques: automated exposure control; mA and/or kV adjustment per patient size (includes targeted exams where dose is matched to clinical indication); or iterative reconstruction. Other technique: STROKE PROTOCOL was implemented. COMPARISON: No relevant prior studies available. RADIATION DOSE METRICS: Total DLP (mGy-cm): 1544.48 FINDINGS: Brain: Chronic right caudate head lacunar infarction. 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 Chronic lacunar infarction inferior right putamen. Moderate hypoattenuating foci are noted in the posterior superior periatrial and anterior lateral ventricular periventricular white matter bilaterally. No intracranial hemorrhage. No mass or acute cortical infarction identified. Ventricles: Prominence of the ventricular system and subarachnoid spaces is consistent with the patient's age of 84 years. Bones/joints: No acute abnormality identified. No acute fracture. Sinuses: Visualized sinuses are unremarkable. No fluid levels. Mastoid air cells: Visualized mastoid air cells are well aerated. Vasculature: Atherosclerotic calcifications are present involving the carotid artery siphons bilaterally. Soft tissues: Unremarkable. CT/CT head wo con* [id number] IMPRESSION: 1. Chronic right caudate head lacunar infarction. 2. 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 3. Chronic lacunar infarction inferior right putamen. 4. Age appropriate supratentorial and infratentorial atrophy. 5. Moderate chronic white matter microvascular ischemic disease. 6. No acute intracranial abnormality identified. ASSESSMENT: ASPECTS ([place] Stroke Program Early CT Score) is 10. Radiation Dose CTDIVOL = (mGy): DLP = 1544.48 (mGy-cm)
--- NOTE | 2019-10-08 07:34 | ECG_ITS ---
[facility] Test Date: 2019-10-08 Pat Name: Khushi Dolan Department: Room: Gender: Female [employer]: : 1935 Requested By: Contreras Kent Order Number: [id number] Josselyn MD: Johanny Tellez M.D. Measurements Intervals [place] Rate: 94 P: MT: -1 QRS: -6 QRSD: 93 T: 68 QT: 338 QTc: 425 Interpretive Statements ATRIAL FIBRILLATION NONSPECIFIC ST & T-WAVE ABNORMALITY ABNORMAL RHYTHM ECG INTERPRETATION BASED ON A DEFAULT AGE OF 40 YEARS Compared to ECG 10/01/2019 14:15:20 No significant changes Electronically Signed On 10-08-2019 20:27:42 CDT by Johanny Tellez M.D. [email or web address]
--- NOTE | 2019-10-08 07:34 | XR_ITS ---
WS: [id number] Portable AP upright chest, 10/08/2019 Clinical Data: cva Comparison: Portable chest, 10/01/2019. Findings: There is a small left pleural effusion. There are no nodules or masses. The heart is slight ly enlarged. There is a pacemaker with wires ending in the heart and the generator overlying the left mid chest. The pulmonary vascularity is not increased. No pneumonia or pneumothorax is seen. The aor tic arch and descending aorta show calcification and tortuosity. Monitor leads are on the chest wall. There are clips in the right upper quadrant from a cholecystectomy. XR/XR chest 1V portable [id number] Impression: 1. Cardiomegaly and atherosclerosis. 2. Small left pleural effusion.
[2019-10-08 07:41] LABS: Basophils # 0.1 10^3/uL (0.0-0.1); Basophils % 1.3 %; Eosinophils # 0.4 10^3/uL (0.0-0.8); Eosinophils % 6.8 %; Hematocrit 39.4 % (37.0-47.0); Hemoglobin 12.2 g/dL (11.5-15.3); Lymphocytes # 1.4 10^3/uL (0.8-4.8); Lymphocytes % 25.7 %; Mean Corpuscular Hemoglobin 29.3 pg (28.0-34.0); Mean Corpuscular Volume 94.5 fL (81-99); Mean Platelet Volume 10.2 fL (7.4-10.4); Monocytes # 0.5 10^3/uL (0.2-0.9); Monocytes % 9.6 %; Neutrophils # 3.01 10^3/uL (1.8-7.7); Neutrophils % 56.4 %; Nucleated Red Blood Cells % 0 %; Platelet Count 277 10^3/cmm (130-400); Red Blood Count 4.17 10^6/uL (4.1-5.3); Red Cell Distribution Width 13.3 % (12.1-15.1); White Blood Count 5.3 10^3/uL (4.0-10.0)
[2019-10-08 07:44] LABS: Glucose Point of Care 83 mg/dL (70-110)
--- NOTE | 2019-10-08 07:48 | ED_ITS ---
HPI - Neuro Symptoms/Deficit General: Chief Complaint: Neuro Symptoms/Deficit Stated Complaint: STROKE LIKE SYMPTOMS Time Seen by Provider: 10/08/19 07:34 Source: patient and EMS Mode of arrival: EMS Limitations: no limitations History of Present Illness: HPI Narrative: 84-year-old female who is here from longterm. Patient woke up with 630 and was walking and staff states that she at 655 had sudden left-sided weakness facial droop and aphasia. Patient first arrived here she did have dysarthria and has since resolved. Patient now has full strength in both extremities. Patient is on Coumadin. She denies any headache. She has had no fever. Associated symptoms: Deny chest pain, nausea or vomiting Review of Systems Const: Denies: fever(s), chills, body aches or change in appetite Eyes: Denies: blurry vision or eye discomfort ENMT: Denies: throat pain or dental pain Card: Denies: chest pain Resp: Denies: dyspnea GI: Denies: abdominal pain, nausea, vomiting or diarrhea : Denies: dysuria Musc: Denies: neck pain or back pain Skin/Breast: Denies: rash Neuro: Reports: numbness in extremities, weakness in extremities and Slurred speech present Psych: Denies: depression Amilcar/Lymph: Denies: easy bruising All/Imm: Denies: urticaria PFSH ED PFSH: Medical History (Updated 10/08/19 @ 09:50 by Contreras Kent MD) Anticoagulated Needs INR rechecked. Atrial fibrillation Atrial fibrillation, chronic Hypertension Pacemaker TIA (transient ischemic attack) X2 Surgical History (Updated 10/07/19 @ 00:00 by ) History of cataract surgery History of hysterectomy Hx of cholecystectomy Status post left inguinal hernia repair (10/02/19) Status post-operative repair of closed fracture of left hip Family History Other CAD (coronary artery disease) Diabetes Social History Smoking and tobacco status: never smoked Alcohol intake: never Marital status: NIH stroke score NIHSS: Level Of Consciousness - 1a: 0 Level Of Consciousness Questions - 1b: One Correct Level Of Consciousness Commands - 1c: Both Correct Best Gaze - 2: Normal Visual Blanco - 3: No Visual Loss Facial Palsy - 4: Normal Motor Arm Right - 5: No Drift Motor Arm Left - 5: No Drift Motor Leg Right - 6: No Drift Motor Leg Left - 6: No Drift Limb Ataxia - 7: Absent Sensory - 8: Normal Best Language - 9: Mild/Moderate Aphasia Dysarthia - 10: Severe Dysarthia Extinction And Inattention - 11: 0 Score: Total Score: 4 Course Vital Signs: Vital signs: Vital Signs Temperature 98.0 F 10/08/19 07:35 Pulse Rate 97 10/08/19 10:13 Respiratory Rate 16 10/08/19 09:34 Blood Pressure 125/80 10/08/19 10:13 Pulse Oximetry 94 10/08/19 10:13 MDM - Neuro Symptoms/Deficit MDM Narrative: Medical decision making narrative: Khushi presents here with a TIA. Patient is not a TPA candidate as her symptoms of completely resolved and her INR is 2.1. I spoke to Dr. Manuel and went over CTA findings with her. She recommended starting her on aspirin as well and to follow-up with her outpatient. She feels patient is stable for discharge at this time. Patient is back to baseline and is discharged back to longterm. Lab Data: Labs: Lab Results 10/08/19 10/08/19 10/08/19 Range/Units 07:20 07:20 07:20 WBC 5.3 (4.0-10.0) 10^3/ uL RBC 4.17 (4.1-5.3) 10^6/u L Hgb 12.2 (11.5-15.3) g/dL Hct 39.4 (37.0-47.0) % MCV 94.5 (81-99) fL MCH 29.3 (28.0-34.0) pg MCHC 31.0 (30.0-36.0) g/dL RDW 13.3 (12.1-15.1) % Plt Count 277 (130-400) 10^3/c mm MPV 10.2 (7.4-10.4) fL Neut % (Auto) 56.4 % Lymph % (Auto) 25.7 % [place] % (Auto) 9.6 % Eos % (Auto) 6.8 % Baso % (Auto) 1.3 % Neut # (Auto) 3.01 (1.8-7.7) 10^3/u L Lymph # (Auto) 1.4 (0.8-4.8) 10^3/u L [place] # (Auto) 0.5 (0.2-0.9) 10^3/u L Eos # (Auto) 0.4 (0.0-0.8) 10^3/u L Baso # (Auto) 0.1 (0.0-0.1) 10^3/u L Nucleated RBC % (a uto) 0 % Nucleated RBCs # 0.0 /100WBC PT 24.50 H (12.1-14.9) SECO NDS INR 2.12 H (0.8-1.2) Sodium 137 (136-145) mmol/L Potassium 3.8 (3.5-5.1) mmol/L Chloride 99 (98-107) mmol/L Carbon Dioxide 31 H (22-29) mmol/L Anion Gap 10.8 (5-19) BUN 12 (8-23) mg/dL Creatinine 0.8 (0.5-0.9) mg/dL GFR Calculation Not Reportable Glucose 101 (65-115) mg/dL POC Glucose (70-110) mg/dL Calculated Osmolal ity 280 L (285-295) mOsm/k g Calcium 9.6 (8.5-10.5) mg/dL Total Bilirubin 0.6 (0.15-1.2) mg/dL AST 25 (0-32) U/L ALT 19 (0-33) U/L Alkaline Phosphata se 114 H (35-105) IU/L NT-Pro-B Natriuret Pep 1210 H (0-450) pg/mL Total Protein 7.2 (6.6-8.7) g/dL Albumin 3.7 (3.5-5.2) g/dL Globulin 3.5 (1.3-4.6) g/dL Urine Color (Yellow) Urine Appearance (CLEAR) Urine pH (5-7) Ur Specific Gravit y (1.005-1.030) Urine Protein (Negative) Urine Glucose (UA) (Normal) Urine Ketones (Negative) Urine Blood (Negative) Urine Nitrate (Negative) Urine Bilirubin (NEGATIVE) Urine Urobilinogen (Negative) mg/dL Ur Leukocyte Negra ase (Negative) 10/08/19 10/08/19 Range/Units 07:42 09:29 WBC (4.0-10.0) 10^3/ uL RBC (4.1-5.3) 10^6/u L Hgb (11.5-15.3) g/dL Hct (37.0-47.0) % MCV (81-99) fL MCH (28.0-34.0) pg MCHC (30.0-36.0) g/dL RDW (12.1-15.1) % Plt Count (130-400) 10^3/c mm MPV (7.4-10.4) fL Neut % (Auto) % Lymph % (Auto) % [place] % (Auto) % Eos % (Auto) % Baso % (Auto) % Neut # (Auto) (1.8-7.7) 10^3/u L Lymph # (Auto) (0.8-4.8) 10^3/u L [place] # (Auto) (0.2-0.9) 10^3/u L Eos # (Auto) (0.0-0.8) 10^3/u L Baso # (Auto) (0.0-0.1) 10^3/u L Nucleated RBC % (a uto) % Nucleated RBCs # /100WBC PT (12.1-14.9) SECO NDS INR (0.8-1.2) Sodium (136-145) mmol/L Potassium (3.5-5.1) mmol/L Chloride (98-107) mmol/L Carbon Dioxide (22-29) mmol/L Anion Gap (5-19) BUN (8-23) mg/dL Creatinine (0.5-0.9) mg/dL GFR Calculation Glucose (65-115) mg/dL POC Glucose 83 (70-110) mg/dL Calculated Osmolal ity (285-295) mOsm/k g Calcium (8.5-10.5) mg/dL Total Bilirubin (0.15-1.2) mg/dL AST (0-32) U/L ALT (0-33) U/L Alkaline Phosphata se (35-105) IU/L NT-Pro-B Natriuret Pep (0-450) pg/mL Total Protein (6.6-8.7) g/dL Albumin (3.5-5.2) g/dL Globulin (1.3-4.6) g/dL Urine Color Yellow (Yellow) Urine Appearance Clear (CLEAR) Urine pH 8 H (5-7) Ur Specific Gravit y 1.005 (1.005-1.030) Urine Protein Neg (Negative) Urine Glucose (UA) Norm (Normal) Urine Ketones Negative (Negative) Urine Blood Neg (Negative) Urine Nitrate Negative (Negative) Urine Bilirubin Neg (NEGATIVE) Urine Urobilinogen Norm (Negative) mg/dL Ur Leukocyte Negra ase Negative (Negative) Imaging Data^: CT Head: Attestation: I personally reviewed and interpreted this imaging study as follows: Radiologist's impression: [address] [address] [address] Scan Report Signed with Addenda Patient: Khushi Dolan Unit #: [id number] : 1935 Age/Sex: 84 / F ADM Date: 10/08/19 Loc: ER Room/Bed: Attending Dr: Ordering Provider/Ordering MD: Contreras Kent MD Date of Service: 10/08/19 Procedure(s): CT head wo con* [id number] Accession Number(s): [id number] Report Number: [id number]/CT head wo con* [id number] THIS REPORT CONTAINS FINDINGS THAT MAY BE CRITICAL TO PATIENT CARE. The findings were verbally communicated by me to Dr. Contreras Kent, via telephone conference at 7:52 AM CDT on 10/08/2019. The findings were acknowledged and understood. Radiation Dose CTDIVOL = (mGy): DLP = 1544.48 (mGy-cm) Addendum Dictated By: Elias Livingston MD Addendum Signed By: Elias Livingston MD Signed Da te/Time: 0753 Addendum Cosigned By: PROCEDURE INFORMATION: Exam: CT Head Without Contrast Exam date and time: 10/08/2019 7:43 AM Age: 84 years old Clinical indication: Weakness, extremity; Right; Additional info: Possible stroke right side weakness loss of speech - had hernia surgery last week and takes blood thinners TECHNIQUE: Imaging protocol: Computed tomography of the head without contrast. Radiation optimization: All CT scans at this facility use at least one of these dose optimization techniques: automated exposure control; mA and/or kV adjustment per patient size (includes targeted exams where dose is matched to clinical indication); or iterative reconstruction. Other technique: STROKE PROTOCOL was implemented. COMPARISON: No relevant prior studies available. RADIATION DOSE METRICS: Total DLP (mGy-cm): 1544.48 FINDINGS: Brain: Chronic right caudate head lacunar infarction. 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 Chronic lacunar infarction inferior right putamen. Moderate hypoattenuating foci are noted in the posterior superior periatrial and anterior lateral ventricular periventricular white matter bilaterally. No intracranial hemorrhage. No mass or acute cortical infarction identified. Ventricles: Prominence of the ventricular system and subarachnoid spaces is consistent with the patient's age of 84 years. Bones/joints: No acute abnormality identified. No acute fracture. Sinuses: Visualized sinuses are unremarkable. No fluid levels. Mastoid air cells: Visualized mastoid air cells are well aerated. Vasculature: Atherosclerotic calcifications are present involving the carotid artery siphons bilaterally. Soft tissues: Unremarkable. CT/CT head wo con* [id number] IMPRESSION: 1. Chronic right caudate head lacunar infarction. 2. 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 3. Chronic lacunar infarction inferior right putamen. 4. Age appropriate supratentorial and infratentorial atrophy. 5. Moderate chronic white matter microvascular ischemic disease. 6. No acute intracranial abnormality identified. Other CT: Radiologist's impression: [address] [place] [address] CT Scan Report Signed Patient: Khushi Dolan Unit #: [id number] : 1935 Age/Sex: 84 / F ADM Date: 10/08/19 Loc: ER Room/Bed: Attending Dr: Ordering Provider/Ordering MD: Contreras Kent MD Date of Service: 10/08/19 Procedure(s): CT angio headneck* [id number] Accession Number(s): [id number] Report Number: [id number] PROCEDURE INFORMATION: Exam: CT Angiography Head With Contrast Exam date and time: 10/08/2019 8:08 AM Age: 84 years old Clinical indication: Condition or disease; Other: CVA TECHNIQUE: Imaging protocol: Computed tomography angiography of the head with intravenous contrast. 3D rendering: MIP reconstructed images were created by the technologist. Radiation optimization: All CT scans at this facility use at least one of these dose optimization techniques: automated exposure control; mA and/or kV adjustment per patient size (includes targeted exams where dose is matched to clinical indication); or iterative reconstruction. Contrast material: OMNI 350; Contrast volume: 95 ml; Contrast route: INTRAVENOUS (IV); COMPARISON: CT head wo con* [id number] 10/08/2019 7:28 AM RADIATION DOSE METRICS: Total DLP (mGy-cm): 1667.07 FINDINGS: ANTERIOR CIRCULATION: Right internal carotid artery: Right internal carotid artery siphon calcified plaque, less than 50% stenosis. Right middle cerebral artery: Moderate stenosis distal right M1 MCA segment. Right anterior cerebral artery: Unremarkable. No occlusion or significant stenosis. No aneurysm. Left internal carotid artery: Left internal carotid artery siphon calcified plaque, less than 30% stenosis. Left middle cerebral artery: Moderate proximal, severe distal left M1 MCA segment stenosis. Left anterior cerebral artery: Unremarkable. No occlusion or significant stenosis. No aneurysm. POSTERIOR CIRCULATION: Right vertebral artery: Right vertebral artery dominance, a normal variant. No stenosis. Left vertebral artery: Unremarkable. No occlusion or significant stenosis. No aneurysm. Basilar artery: Small basilar artery secondary to bilateral predominately embryonic origin of the posterior cerebral arteries. Right posterior cerebral artery: Predominately embryonic origin of the right posterior cerebral artery, normal variant. Left posterior cerebral artery: Predominately embryonic origin of the left posterior cerebral artery, normal variant. 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 Orbits: Bilateral prior cataract surgery. IMPRESSION: 1. Moderate proximal, severe distal left M1 MCA segment stenosis. 2. 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 PROCEDURE INFORMATION: Exam: CT Angiography Neck With Contrast Exam date and time: 10/08/2019 8:08 AM Age: 84 years old Clinical indication: Condition or disease; Other: CVA TECHNIQUE: Imaging protocol: Computed tomography angiography of the neck with intravenous contrast. 3D rendering: MIP reconstructed images were created by the technologist. Radiation optimization: All CT scans at this facility use at least one of these dose optimization techniques: automated exposure control; mA and/or kV adjustment per patient size (includes targeted exams where dose is matched to clinical indication); or iterative reconstruction. Contrast material: OMNI 350; Contrast volume: 95 ml; Contrast route: INTRAVENOUS (IV); COMPARISON: CT head wo con* [id number] 10/08/2019 7:28 AM RADIATION DOSE METRICS: Total DLP (mGy-cm): 1667.07 FINDINGS: Right common carotid artery: Minimal right common carotid artery bifurcation calcified plaque, no stenosis. Right internal carotid artery: No stenosis of the extracranial segment. No dissection or occlusion. Right external carotid artery: Minimal right external carotid artery origin calcified plaque, no stenosis. Right vertebral artery: Right vertebral artery dominance, a normal variant. No stenosis. Left common carotid artery: Mild left common carotid artery bifurcation calcified plaque, no stenosis. Left internal carotid artery: Mild left internal carotid artery origin calcified plaque, no stenosis. Minimal left internal carotid artery origin calcified plaque, no stenosis. Left external carotid artery: No occlusion or stenosis of the origin. Left vertebral artery: No stenosis. No dissection or occlusion. Thyroid: Small hyperenhancing thyroid nodules bilaterally, largest on the left measuring 10.9 mm. Bones/joints: Diffuse osteopenia. Mild C3-C4 retrolisthesis, C4-C5 anterolisthesis. C5-6 and C6-7 degenerative disc disease with mild spondylosis. 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 Soft tissues: Normal. No significant soft tissue swelling. CT/CT angio headneck* [id number] IMPRESSION: 1. No acute extracranial vascular abnormality identified. 2. Recommend nonemergent thyroid sonography for further evaluation of a possible left thyroid nodule. EKG Data^: EKG 1: Attestation: I personally reviewed and interpreted this EKG as follows: EKG interpretation date: 10/08/19 EKG interpretation time: 07:47 Interpretation: afib hr [address] or t wave abnormalities qrs 93 qtc 390 Discharge Plan Discharge Patient Disposition: Home Clinical Impression: Transient cerebral ischemia Qualifiers: Transient cerebral ischemia type: other Qualified Code(s): G45.8 - Other transient cerebral ischemic attacks and related syndromes Condition: Stable Prescriptions: New aspirin 81 mg tablet,chewable 81 mg PO DAILY Qty: 60 RF: 0 No Action multivitamin Tablet 1 tab PO DAILY RF: 0 warfarin 4 mg tablet 4 mg PO DIRECTED Qty: 90 RF: 3 metoprolol succinate [Toprol XL] 100 mg tablet extended release 24 hr 100 mg PO DAILY Qty: 90 RF: 3 ferrous sulfate [iron] 325 mg (65 mg iron) Tablet 325 mg PO BID RF: 0 omeprazole 20 mg Capsule,Delayed Release(Dr/Ec) 20 mg PO DAILY RF: 0 potassium chloride 20 mEq Tablet Extended Release 20 meq PO DAILY RF: 0 hydrocodone-acetaminophen 5-325 mg tablet 1 - 2 tab PO Q4H PRN (Reason: pain) Qty: 40 RF: 0 sucralfate 100 mg/mL Suspension 1 g PO AC&BEDTIME Qty: 50 RF: 0 Discharge Orders: Discharge Order (Routine); Ordered 10/08/19 Ordered By: Contreras Kent Referrals: Opal Manuel MD [Physician] - 1-3 days Clarence Mendieta MD [Primary Care Provider] - Discharge Diet: Advance as tolerated Discharge Activity: Resume usual activity Patient Instructions: Transient Ischemic Attack (ED) Coding Level of Care Code ED [employer] for Davonte Rodríguez
[2019-10-08 07:53] LABS: INR 2.12 (0.8-1.2)
--- NOTE | 2019-10-08 08:01 | CTR_ITS ---
PROCEDURE INFORMATION: Exam: CT Angiography Head With Contrast Exam date and time: 10/08/2019 8:08 AM Age: 84 years old Clinical indication: Condition or disease; Other: CVA TECHNIQUE: Imaging protocol: Computed tomography angiography of the head with intravenous contrast. 3D rendering: MIP reconstructed images were created by the technologist. Radiation optimization: All CT scans at this facility use at least one of these dose optimization techniques: automated exposure control; mA and/or kV adjustment per patient size (includes targeted exams where dose is matched to clinical indication); or iterative reconstruction. Contrast material: OMNI 350; Contrast volume: 95 ml; Contrast route: INTRAVENOUS (IV); COMPARISON: CT head wo con* [id number] 10/08/2019 7:28 AM RADIATION DOSE METRICS: Total DLP (mGy-cm): 1667.07 FINDINGS: ANTERIOR CIRCULATION: Right internal carotid artery: Right internal carotid artery siphon calcified plaque, less than 50% stenosis. Right middle cerebral artery: Moderate stenosis distal right M1 MCA segment. Right anterior cerebral artery: Unremarkable. No occlusion or significant stenosis. No aneurysm. Left internal carotid artery: Left internal carotid artery siphon calcified plaque, less than 30% stenosis. Left middle cerebral artery: Moderate proximal, severe distal left M1 MCA segment stenosis. Left anterior cerebral artery: Unremarkable. No occlusion or significant stenosis. No aneurysm. POSTERIOR CIRCULATION: Right vertebral artery: Right vertebral artery dominance, a normal variant. No stenosis. Left vertebral artery: Unremarkable. No occlusion or significant stenosis. No aneurysm. Basilar artery: Small basilar artery secondary to bilateral predominately embryonic origin of the posterior cerebral arteries. Right posterior cerebral artery: Predominately embryonic origin of the right posterior cerebral artery, normal variant. Left posterior cerebral artery: Predominately embryonic origin of the left posterior cerebral artery, normal variant. Moderate-severe stenosis left AWNINGS MECHANIC P2 segment. Orbits: Bilateral prior cataract surgery. IMPRESSION: 1. Moderate proximal, severe distal left M1 MCA segment stenosis. 2. Moderate-severe stenosis left AWNINGS MECHANIC P2 segment. PROCEDURE INFORMATION: Exam: CT Angiography Neck With Contrast Exam date and time: 10/08/2019 8:08 AM Age: 84 years old Clinical indication: Condition or disease; Other: CVA TECHNIQUE: Imaging protocol: Computed tomography angiography of the neck with intravenous contrast. 3D rendering: MIP reconstructed images were created by the technologist. Radiation optimization: All CT scans at this facility use at least one of these dose optimization techniques: automated exposure control; mA and/or kV adjustment per patient size (includes targeted exams where dose is matched to clinical indication); or iterative reconstruction. Contrast material: OMNI 350; Contrast volume: 95 ml; Contrast route: INTRAVENOUS (IV); COMPARISON: CT head wo con* [id number] 10/08/2019 7:28 AM RADIATION DOSE METRICS: Total DLP (mGy-cm): 1667.07 FINDINGS: Right common carotid artery: Minimal right common carotid artery bifurcation calcified plaque, no stenosis. Right internal carotid artery: No stenosis of the extracranial segment. No dissection or occlusion. Right external carotid artery: Minimal right external carotid artery origin calcified plaque, no stenosis. Right vertebral artery: Right vertebral artery dominance, a normal variant. No stenosis. Left common carotid artery: Mild left common carotid artery bifurcation calcified plaque, no stenosis. Left internal carotid artery: Mild left internal carotid artery origin calcified plaque, no stenosis. Minimal left internal carotid artery origin calcified plaque, no stenosis. Left external carotid artery: No occlusion or stenosis of the origin. Left vertebral artery: No stenosis. No dissection or occlusion. Thyroid: Small hyperenhancing thyroid nodules bilaterally, largest on the left measuring 10.9 mm. Bones/joints: Diffuse osteopenia. Mild C3-C4 retrolisthesis, C4-C5 anterolisthesis. C5-6 and C6-7 degenerative disc disease with mild spondylosis. 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 Soft tissues: Normal. No significant soft tissue swelling. CT/CT angio headneck* [id number] IMPRESSION: 1. No acute extracranial vascular abnormality identified. 2. Recommend nonemergent thyroid sonography for further evaluation of a possible left thyroid nodule. COMMENTS: Consistent with the [employer]'s Incidental Findings Committee white paper (J Am Sheila Radiol 2015): In patients aged 35 years and older with an incidental thyroid nodule equal to or greater than 1.[address], MRI or extrathyroidal US, further evaluation with dedicated thyroid US is recommended for patients with normal life expectancy and without comorbidities. For smaller nodules without suspicious features, no further evaluation or follow up is recommended. REFERENCES: NASCET CRITERIA. The degree of internal carotid artery stenosis is based on NASCET criteria. Normal is no stenosis. Mild is less than 50% stenosis. Moderate is 50-69% stenosis. Severe is 70% to 99% stenosis. Total occlusion is no detectable patent lumen. Radiation Dose CTDIVOL = (mGy): DLP = 1667.07~1667.07 (mGy-cm)
--- NOTE | 2019-10-08 08:05 | USCV_ITS ---
Khushi Dolan Age: 84 Gender: F : 1935 Exam Date: 10/08/2019 08:18 Ordering Phys: Contreras Kent MD Technologist: Liliam Fernandez Exam Location: [facility] [place] Indication: CVA BP: 122 / 90 HR: 106 Rhythm: Sinus Technical Quality: Adequate MEASUREMENTS (Male / Female) Normal Values 2D ECHO LV Diastolic Diameter PLAX 3.6 cm 4.2 - 5.9 / 3.9 - 5.3 cm LV Systolic Diameter PLAX 2.3 cm LV Chamber Size 3.3 cm IVS Diastolic Thickness 1.3 cm 0.6 - 1.0 / 0.6 - 0.9 cm IVS Systolic Thickness 1.6 cm LVPW Diastolic Thickness 1.6 cm 0.6 - 1.0 / 0.6 - 0.9 cm LVPW Systolic Thickness 1.7 cm RV Chamber Size 3.5 cm LVOT Diameter 2.0 cm LV Ejection Fraction 2D Teich 66.3 % LA Diameter 4.7 cm LA Width 4.6 cm LA Height 6.7 cm RA Width 4.8 cm RA Height 5.1 cm Aorta at Sinotubular Diameter 3.0 cm M-MODE LV Diastolic Diameter MM 4.8 cm 4.2 - 5.9 / 3.9 - 5.3 cm LV Systolic Diameter MM 3.6 cm LV Ejection Fraction MM Teich 48.3 % IVS Diastolic Thickness MM 1.1 cm 0.6 - 1.0 / 0.6 - 0.9 cm IVS Systolic Thickness MM 1.3 cm LVPW Diastolic Thickness MM 1.4 cm 0.6 - 1.0 / 0.6 - 0.9 cm LVPW Systolic Thickness MM 1.5 cm RV Diastolic Diameter MM 1.2 cm Aortic Annulus Diameter 3.0 cm LA Ao Ratio MM 1.6 MV E Point Septal Separation 0.1 cm DOPPLER MV Area PHT 3.3 cm squared MV E' Velocity 12.0 cm/s Mitral E to MV E' Ratio 12.1 Mitral E to LV E' Lateral Ratio 10.7 Mitral E to LV E' Septal Ratio 13.9 TR Peak Velocity 333.0 cm/s TR Peak Gradient 44.3 mmHg TR Mean Velocity 242.3 cm/s TR Mean Gradient 26.5 mmHg TR Velocity Time Integral 101.0 cm TV Peak E Velocity 72.0 cm/s PV Peak Velocity 80.0 cm/s FINDINGS Left Ventricle Normal left ventricular size and systolic function, EF 60%. Mild hypokinesia of the septum Right Ventricle Pacemaker wire in the right ventricle. Normal right ventricular size and ejection fraction. Right Atrium Pacemaker wire in the right atrium. Moderately dilated Left Atrium Moderately increased left atrial size. Mitral Valve Thickened mitral valve. Moderate mitral annular calcification. Mild mitral valve regurgitation. Aortic Valve Thickened aortic valve. Tricuspid Valve Moderate tricuspid valve regurgitation. Pulmonic Valve No gross abnormalities noted Pericardium No pericardial effusion Aorta Normal aortic annulus size. CONCLUSIONS Normal left ventricular size and systolic function, EF 60%. Mild hypokinesia of the septum. Moderate biatrial enlargement Thickened mitral valve. Moderate mitral annular calcification. Mild mitral valve regurgitation. Thickened aortic valve. Moderate tricuspid valve regurgitation. Mild pulmonary hypertension with an estimated pulmonary artery peak systolic pressure of 50 mmHg Pacemaker wire in the right atrium right ventricle No pericardial effusion Compared to the study from 02/07/2017, there may not be a significant change Dr Oziel Kelly MD [facility] (Electronically Signed) Final Date: 08 October 2019 09:00 S
[2019-10-08 08:12] LABS: Alanine Aminotransferase 19 U/L (0-33); Albumin Level 3.7 g/dL (3.5-5.2); Alkaline Phosphatase 114 IU/L (35-105); Anion Gap 10.8 (5-19); Aspartate Amino Transferase 25 U/L (0-32); Blood Urea Nitrogen 12 mg/dL (8-23); Calcium 9.6 mg/dL (8.5-10.5); Carbon Dioxide 31 mmol/L (22-29); Chloride 99 mmol/L (98-107); Globulin 3.5 g/dL (1.3-4.6); Glucose 101 mg/dL (65-115); NT Pro B Type Natriuretic Pept 1210 pg/mL (0-450); Osmolality Calculated 280 mOsm/kg (285-295); Potassium 3.8 mmol/L (3.5-5.1); Sodium 137 mmol/L (136-145); Total Bilirubin 0.6 mg/dL (0.15-1.2); Total Protein 7.2 g/dL (6.6-8.7)
--- NOTE | 2019-10-08 08:13 | PC.NURSE ---
portable xray at bedside
--- NOTE | 2019-10-08 08:14 | PC.NURSE ---
portable ultrasound at bedside
--- NOTE | 2019-10-08 08:39 | PC.NURSE ---
pt to CT by stretcher with tech
[2019-10-08] MEDS: iohexol 350 mg/mL 100 mL Btl 95 ML IV (08:45)
[2019-10-08 09:51] LABS: Add Urine Microscopic? NO
[2019-10-08 10:03] LABS: Bilirubin Urine Neg (NEGATIVE); Blood Urine Neg (Negative); Glucose Urine UA Norm (Normal); Ketones Urine Negative (Negative); Leukocyte Esterase Urine Negative (Negative); Nitrate Urine Negative (Negative); Protein Urine Neg (Negative); Specific Gravity, Urine 1.005 (1.005-1.030); Urine Appearance Clear (CLEAR); Urine Color Yellow (Yellow); Urobilinogen Urine Norm (Negative); pH Urine 8 (5-7)
== END 2019-10-08 10:50 | disposition home or self-care (01) ==
PROVIDERS: Emergency Provider Emergency Medicine; PCP Internal Medicine
DX: G45.8 Other transient cerebral ischemic attacks and related syndromes (principal); Z79.01 Long term (current) use of anticoagulants; I48.91 Unspecified atrial fibrillation; I10 Essential (primary) hypertension; Z95.0 Presence of cardiac pacemaker; Z86.73 Personal history of transient ischemic attack (TIA), and cerebral infarction without residual deficits
CPT/HCPCS: 12345; 36416; 70450; 70496; 70498; 71045; 80053; 81003; 82962; 83880; 85025; 85610; 93005; 93306; 96374; 96375; 99283; 99284; J3490; Q9967

== ENCOUNTER 2019-10-09 18:04 | Inpatient (IN) | payer MEDICARE, OTHER, SELFPAY ==
[2019-10-09 18:15] LABS: Glucose Point of Care 122 mg/dL (70-110)
[2019-10-09 18:17] VITALS: BP 135/77; PULSE 101; PULSE 94; RESP 16; RESP 20; TEMP 36.8; TEMP 37.2; O2SAT 95; BMI 31.1
--- NOTE | 2019-10-09 18:17 | CTR_ITS ---
PROCEDURE INFORMATION: Exam: CT Angiography Head With Contrast Exam date and time: 10/09/2019 6:23 PM Age: 84 years old Clinical indication: Speech disturbance; Slurred speech; Additional info: Stroke-like symptoms TECHNIQUE: Imaging protocol: Computed tomography angiography of the head with intravenous contrast. 3D rendering: MIP and/or 3D reconstructed images were created by the technologist. Radiation optimization: All CT scans at this facility use at least one of these dose optimization techniques: automated exposure control; mA and/or kV adjustment per patient size (includes targeted exams where dose is matched to clinical indication); or iterative reconstruction. Contrast material: OMNI 350; Contrast volume: 95 ml; Contrast route: INTRAVENOUS (IV); COMPARISON: CT angio headneck* [id number] 2019-10-08 08:38 RADIATION DOSE METRICS: Total DLP (mGy-cm): 1217.18 FINDINGS: ANTERIOR CIRCULATION: Right internal carotid artery: Mild cavernous and supraclinoid right internal carotid artery atherosclerotic plaque and stenosis. Right middle cerebral artery: Mild to moderate right MCA atherosclerosis irregularity and stenosis. Right anterior cerebral artery: Unremarkable. No occlusion or significant stenosis. No aneurysm. Left internal carotid artery: Mild cavernous and supraclinoid left internal carotid artery atherosclerotic plaque and stenosis. Left middle cerebral artery: Left MCA M2 branches appear patent. Severe focal stenosis in the left MCA M1 mid segment. Left anterior cerebral artery: Unremarkable. No occlusion or significant stenosis. No aneurysm. POSTERIOR CIRCULATION: Right vertebral artery: Unremarkable. No occlusion or significant stenosis. No aneurysm. Left vertebral artery: Unremarkable. No occlusion or significant stenosis. No aneurysm. Basilar artery: Unremarkable. No occlusion or significant stenosis. No aneurysm. Right posterior cerebral artery: Moderate to severe right RECY[employer]ING C[employer] OPERATOR P2 segment stenosis. right RECYCLING CENTER OPERATOR origin. Left posterior cerebral artery: Severe left RECYCLING CENTER OPERATOR P2 segment stenosis. Centrally left RECYCLING CENTER OPERATOR origin. IMPRESSION: 1. No significant change from yesterday. 2. Mild to moderate right MCA atherosclerosis irregularity and stenosis. 3. Severe focal stenosis in the left MCA M1 segment. Not significantly changed. 4. Severe left RECYCLING CENTER OPERATOR P2 segment stenosis. 5. Moderate to severe right RECYCLING CENTER OPERATOR P2 segment stenosis. PROCEDURE INFORMATION: Exam: CT Angiography Neck With Contrast Exam date and time: 10/09/2019 6:23 PM Age: 84 years old Clinical indication: Speech disturbance; Slurred speech; Additional info: Stroke-like symptoms TECHNIQUE: Imaging protocol: Computed tomography angiography of the neck with intravenous contrast. 3D rendering: MIP and/or 3D reconstructed images were created by the technologist. Radiation optimization: All CT scans at this facility use at least one of these dose optimization techniques: automated exposure control; mA and/or kV adjustment per patient size (includes targeted exams where dose is matched to clinical indication); or iterative reconstruction. Contrast material: OMNI 350; Contrast volume: 95 ml; Contrast route: INTRAVENOUS (IV); COMPARISON: CT angio headneck* [id number] 2019-10-08 08:38 RADIATION DOSE METRICS: Total DLP (mGy-cm): 1217.18 FINDINGS: Right common carotid artery: No stenosis. No dissection or occlusion. Right internal carotid artery: No stenosis of the extracranial segment. No dissection or occlusion. Right external carotid artery: No occlusion or stenosis of the origin. Right vertebral artery: No stenosis. No dissection or occlusion. Left common carotid artery: No stenosis. No dissection or occlusion. Left internal carotid artery: Mild atherosclerotic plaque in the proximal left internal carotid artery and carotid bulb with less than 50% stenosis by NASCET criteria. Left external carotid artery: No occlusion or stenosis of the origin. Left vertebral artery: No stenosis. No dissection or occlusion. Thyroid: Innumerable enhancing thyroid nodules measuring up to 1 cm, correlate with ultrasound. Bones/joints: Moderate cervical spondylosis. Soft tissues: Normal. No significant soft tissue swelling. Other findings: AICD/Pacemaker device is present, and its leads are in appropriate position. CT/CT angio headne* [id number] IMPRESSION: 1. No significant change from yesterday CTA. 2. Innumerable enhancing thyroid nodules measuring up to 1 cm, correlate with ultrasound. 3. Mild atherosclerotic plaque in the proximal left internal carotid artery and carotid bulb with less than 50% stenosis by NASCET criteria. COMMENTS: Consistent with the [employer]'s Incidental Findings Committee white paper (J Am Sheila Radiol 2015): In patients aged 35 years and older with an incidental thyroid nodule equal to or greater than 1.[address], MRI or extrathyroidal US, further evaluation with dedicated thyroid US is recommended for patients with normal life expectancy and without comorbidities. For smaller nodules without suspicious features, no further evaluation or follow up is recommended. REFERENCES: NASCET CRITERIA. The degree of internal carotid artery stenosis is based on NASCET criteria. Normal is no stenosis. Mild is less than 50% stenosis. Moderate is 50-69% stenosis. Severe is 70% to 99% stenosis. Total occlusion is no detectable patent lumen. Radiation Dose CTDIVOL = (mGy): DLP = 1217.18~1217.18 (mGy-cm)
--- NOTE | 2019-10-09 18:17 | CTR_ITS ---
PROCEDURE INFORMATION: Exam: CT Head Without Contrast Exam date and time: 10/09/2019 6:19 PM Age: 84 years old Clinical indication: Speech disturbance; Slurred speech; Additional info: Symptoms of acute stroke TECHNIQUE: Imaging protocol: Computed tomography of the head without contrast. Radiation optimization: All CT scans at this facility use at least one of these dose optimization techniques: automated exposure control; mA and/or kV adjustment per patient size (includes targeted exams where dose is matched to clinical indication); or iterative reconstruction. Other technique: STROKE PROTOCOL was implemented. COMPARISON: CT head wo con* [id number] 10/08/2019 7:28 AM RADIATION DOSE METRICS: Total DLP (mGy-cm): 862.44 FINDINGS: Brain: No hemorrhage. Stable white matter, small old right basal ganglia lacunar infarcts. No mass effect. Ventricles: Normal. No ventriculomegaly. Bones/joints: Unremarkable. No acute fracture. Sinuses: No acute sinusitis. Mastoid air cells: Unremarkable. Soft tissues: Unremarkable. CT/CT head wo con* [id number] IMPRESSION: No acute intracranial abnormality. ASSESSMENT: ASPECTS ([place] Stroke Program Early CT Score) is 10. Radiation Dose CTDIVOL = (mGy): DLP = 862.44 (mGy-cm)
--- NOTE | 2019-10-09 18:17 | ECG_ITS ---
[facility] Test Date: 2019-10-09 Pat Name: Khushi Dolan Department: Room: Gender: Female Appeals Coordinator: : 1935 Requested By: Maryse Pham I Order Number: [id number] Josselyn MD: Toño Jeff M.D. Measurements Intervals Anton Rate: 92 P: TN: -1 QRS: -5 QRSD: 109 T: 34 QT: 339 QTc: 420 Interpretive Statements ATRIAL FIBRILLATION INCOMPLETE RIGHT BUNDLE BRANCH BLOCK [90+ ms QRS DURATION, TERMINAL R IN V1/V2, 40+ ms S IN I/aVL/V4/V5/V6] POSSIBLE ANTERIOR MYOCARDIAL INFARCTION , PROBABLY OLD [30 ms Q WAVE IN V3/V4, OR R < 0.2 mV IN V4] ABNORMAL RHYTHM ECG Compared to ECG 10/08/2019 07:47:07 Incomplete right bundle-branch block now present Myocardial infarct finding now present T-wave abnormality no longer present Electronically Signed On 10-11-2019 18:07:31 CDT by Toño Jeff M.D. [email or web address]
[2019-10-09 18:36] LABS: Basophils # 0.1 10^3/uL (0.0-0.1); Basophils % 0.8 %; Eosinophils # 0.4 10^3/uL (0.0-0.8); Eosinophils % 6.3 %; Hematocrit 41.3 % (37.0-47.0); Hemoglobin 12.9 g/dL (11.5-15.3); Lymphocytes # 1.6 10^3/uL (0.8-4.8); Lymphocytes % 24.7 %; Mean Corpuscular HGB Conc 31.2 g/dL (30.0-36.0); Mean Corpuscular Hemoglobin 29.9 pg (28.0-34.0); Mean Corpuscular Volume 95.8 fL (81-99); Mean Platelet Volume 10.4 fL (7.4-10.4); Monocytes # 0.6 10^3/uL (0.2-0.9); Monocytes % 9.7 %; Neutrophils # 3.67 10^3/uL (1.8-7.7); Neutrophils % 58.2 %; Nucleated Red Blood Cells % 0 %; Platelet Count 317 10^3/cmm (130-400); Red Blood Count 4.31 10^6/uL (4.1-5.3); Red Cell Distribution Width 13.5 % (12.1-15.1); White Blood Count 6.3 10^3/uL (4.0-10.0)
[2019-10-09 18:42] LABS: INR 2.39 (0.8-1.2)
[2019-10-09 18:43] LABS: Partial Thromboplastin Time 49.2 SECONDS (23.9-36.7)
[2019-10-09 18:47] LABS: Alanine Aminotransferase 16 U/L (0-33); Albumin Level 3.7 g/dL (3.5-5.2); Alkaline Phosphatase 107 IU/L (35-105); Anion Gap 10.7 (5-19); Aspartate Amino Transferase 22 U/L (0-32); Blood Urea Nitrogen 11 mg/dL (8-23); Calcium 8.9 mg/dL (8.5-10.5); Carbon Dioxide 29 mmol/L (22-29); Chloride 100 mmol/L (98-107); Globulin 3.8 g/dL (1.3-4.6); Glucose 115 mg/dL (65-115); Osmolality Calculated 279 mOsm/kg (285-295); Potassium 3.7 mmol/L (3.5-5.1); Sodium 136 mmol/L (136-145); Total Bilirubin 0.4 mg/dL (0.15-1.2); Total Protein 7.5 g/dL (6.6-8.7)
[2019-10-09 18:57] VITALS: BP 150/104; PULSE 96; RESP 18; O2SAT 96
[2019-10-09] MEDS: iohexol 350 mg/mL 100 mL Btl IV (18:58)
--- NOTE | 2019-10-09 19:08 | PC.NURSE ---
Hip surgery on left hip . Alert and oriented
[2019-10-09 19:24] LABS: Amphetamines Screen Urine Negative (Negative); Barbiturates Screen Urine Negative (Negative); Benzodiazepines Screen Urine Negative (Negative); Cocaine Screen Urine Negative (Negative); Opiate Screen Urine Positive (Negative); PCP Screen Urine Negative (Negative); THC Screen Urine Negative (Negative)
[2019-10-09 19:26] LABS: Add Urine Microscopic? YES; Bilirubin Urine Neg (NEGATIVE); Blood Urine 2+ (Negative); Glucose Urine UA Norm (Normal); Ketones Urine Negative (Negative); Leukocyte Esterase Urine Negative (Negative); Nitrate Urine Negative (Negative); Protein Urine Neg (Negative); Urine Appearance Clear (CLEAR); Urine Color Yellow (Yellow); Urobilinogen Urine Neg (Negative); pH Urine 7 (5-7)
[2019-10-09 19:27] LABS: Add Urine Culture? No; Bacteria Urine TRACE; Squamous Epithelial Cell Urine 0-4 (0-5); WBC Urine 0-4 /hpf (0-5)
[2019-10-09 20:17] VITALS: BP 142/76; PULSE 108; RESP 18
--- NOTE | 2019-10-09 22:49 | P.HP_ITS ---
Providers/Chief Complaint Admitting Physician: Paola Gramajo MD Primary Care Provider: Clarence Mendieta MD Chief Complaint: Facial droop and dysarthria History of Present Illness Khushi Dolan is a 84 year old female who presented to the emergency room with chief complaint of right-sided facial droop and dysarthria. She had been seen yesterday after experiencing acute left-sided weakness, right-sided facial droop and a aphasia at the half-way. On arrival to the emergency room yesterday she was dysarthric but symptoms otherwise resolved. She was known to be on Coumadin and therefore not a candidate for TPA. She actually had CT of the head without contrast as well as CTA of the head and neck and an echocardiogram. CTA showed moderate proximal severe distal left M1 MCA segment stenosis and moderate to severe stenosis of the left RETAIL STORE MANAGER P2 segment. Echo revealed normal ejection fraction at 60% with some mild hypokinesis of the septum, biatrial enlargement, mild pulmonary hypertension. ED notes indicate that they discussed the imaging findings with Dr. Manuel. She recommended initiation of aspirin therapy and outpatient follow-up. Patient was back to baseline before disposition back to half-way. She had remained okay until around 515 today when she again had sudden onset of neurological symptoms. Today just dysarthria and right-sided facial droop without the left-sided focal weakness. NIH stroke scale was 3. I took care of Mrs. Dolan back in July and her speech is definitely changed and facial droop is noted. She has a history of transient ischemic attacks. She has known chronic atrial fibrillation and is chronically anticoagulated on Coumadin. She has had recent left inguinal hernia repair necessitating reversal of Coumadin. INR is currently therapeutic. Aspirin was started yesterday. Case was again discussed with neurology via telephone. Neurology recommended admission for further work-up, in particular MRI but patient has a pacemaker. They did indicate, as documented in ED notes that they did not feel patient required acute intervention after review of scans. With persistent symptoms, she is being admitted for monitoring for potential progressive symptoms and further evaluation as indicated. Review of Systems Const: Denies: fever(s), chills or change in appetite Eyes: Denies: change in vision ENMT: Denies: throat pain, dry mouth or nasal congestion Card: Denies: chest pain, palpitations or edema Resp: Denies: dyspnea, productive cough or non-productive cough GI: Denies: abdominal pain, nausea, vomiting, dysphagia, diarrhea or constipation : Reports: urinary incontinence (sometimes) and other (required in/out cath once last hospital stay) Skin/Breast: Reports: other (Healing surgical site left groin) Neuro: Reports: weakness in extremities, Slurred speech present and other (Facial droop); Denies: headache(s), numbness in extremities, lack of coordination, dizziness or vertigo Psych: Denies: anxiety or depression Amilcar/Lymph: Denies: easy bruising or easy bleeding Medications/Allergies Home Medications Medication Instructions Recorded Confirmed Last Taken Type warfarin 4 mg tablet 4 mg PO DIRECTED #90 tab 05/06/19 10/09/19 10/08/19 Rx multivitamin 1 tab PO DAILY 05/13/19 10/09/19 10/08/19 History metoprolol succinate 100 mg 100 mg PO DAILY #90 tab 06/30/19 10/09/19 10/08/19 Rx tablet,extended release 24 hr ferrous sulfate [iron] 325 mg PO BID 08/06/19 10/09/19 10/09/19 History omeprazole 20 mg PO DAILY 08/06/19 10/09/19 10/09/19 History potassium chloride 20 meq PO DAILY 08/06/19 10/09/19 10/08/19 History hydrocodone-acetaminophen 1 - 2 tab PO Q4H PRN #40 tab 08/10/19 10/09/19 09/30/19 Rx sucralfate 1 g PO AC&BEDTIME #50 ml 08/11/19 10/09/19 10/09/19 Rx aspirin 81 mg PO DAILY #60 tab 10/08/19 10/09/19 10/08/19 Rx doxycycline hyclate 1 tab PO DAILY 10/09/19 10/09/19 10/09/19 History warfarin See Rx Instructions .ROUTE .COMPLEX 10/09/19 10/09/19 10/07/19 History Allergies Allergy/AdvReac Type Severity Reaction Status Date / Time valsartan [From Diovan] Allergy Unknown Verified 10/01/19 12:16 amlodipine AdvReac Unknown Verified 10/01/19 12:16 anxiety med AdvReac Severe very sick Uncoded 08/19/19 14:01 PFSH Acute PFSH: Medical History (Updated 10/10/19 @ 03:22 by Paola Gramajo MD) Atrial fibrillation History of transfusion reaction (~07/2019) anaphylactic reaction to blood transfusion in hospital, needs pretreatment with benedryl for future reactions Hypertension Pacemaker TIA (transient ischemic attack) Surgical History (Updated 10/10/19 @ 03:18 by Paola Gramajo MD) History of cataract surgery History of hysterectomy Hx of cholecystectomy Status post left inguinal hernia repair (10/02/19) Status post-operative repair of closed fracture of left hip (08/07/19) Family History Other CAD (coronary artery disease) Diabetes Social History (Updated 10/10/19 @ 03:20 by Paola Gramajo MD) Smoking and tobacco status: never smoked Alcohol intake: never Marital status: Additional social history: Currently residing at skilled facility after recent surgery to groin area. has dementia and requires some care. Had been fairly independent and active until hip fracture in July of 2019. Vitals/I&O/Wt Last Vital Signs Temp 98.9 F 10/09/19 18:17 Pulse 96 10/09/19 18:57 Resp 18 10/09/19 18:57 BP 150/104 10/09/19 18:57 Pulse Ox 96 10/09/19 18:57 Weight last 48 hrs Weight 72.484 kg Physical Exam Const: OTHER: Alert, oriented x3, cooperative, remembers me from last time I cared for her HENMT: OTHER: Patient with right-sided facial droop, tongue deviates to the right upon protrusion, uvula deviates to the left slightly, no difficulty swallowing small sip of water or handling oral secretions, mucous membranes moist Eye: OTHER: Pupils equally round and reactive to light, extraocular movements are intact, no obvious visual field loss Neck/C-Spine: OTHER: Supple Resp: OTHER: Clear to auscultation bilaterally no rales rhonchi or wheezes noted, no accessory muscle use noted Cardio: OTHER: Irregularly irregular rhythm, no murmurs gallops or rubs. Pulses 2+ and equal at both feet. GI: OTHER: Abdomen soft, nontender, nondistended, positive bowel sounds. : OTHER: Normal external genitalia Extremity: NARRATIVE EXTREMITY EXAM: No pitting edema, hip is healing well Neuro: OTHER: Slurred speech noted, no upper extremity drift, has had recent left hip surgery but other than that strength appears equal in both lower extremities, gait was not assessed DTRs in upper extremities equal, equivocal in lower extremities but the same bilaterally Skin: NARRATIVE SKIN EXAM: Surgical incision site in the left groin is healing well with no drainage noted. The wound is not closed through the most superficial layers yet. Dry minimally erythematous skin is noted extending over the mons pubis with some slight desquamation. Skin is not warm to touch. Data : 10/09/19 18:10 10/09/19 18:10 A&P Assessment and plan (1) Cerebrovascular accident: With right-sided facial droop and dysarthria. Yesterday presented with left-sided weakness that resolved. Her INR is currently therapeutic. Transthoracic echocardiogram did not reveal description of thrombus on October 07. Has had to have Coumadin reversed twice in the last couple of months for acute surgical intervention. I suspect this is a contributing factor to what we are seeing today. Aspirin was started yesterday but has certainly not had sufficient time for full antiplatelet effect and she is only had 1 dose. She is not on statin therapy. Previously had only had 2 prior transient ischemic attacks sometime ago. She has some stenosis noted on CTA of the head and neck as indicated but reviewed by 2 neurologists, according to emergency room notes, who indicated patient is not a candidate for emergent intervention. Status: Acute Qualifiers: CVA mechanism: unspecified Qualified Code(s): I63.9 - Cerebral infarction, unspecified (2) Chronic anticoagulation: Chronically on Coumadin with currently therapeutic INR although has had reversal recently due to need for surgery and also required reversal back in July also for surgery. Status: Chronic (3) Atrial fibrillation: Chronically on metoprolol and has a pacemaker, on Coumadin. Has been on Coumadin for many many years. Status: Chronic Qualifiers: Atrial fibrillation type: persistent (not longstanding) Qualified Code(s): I48.19 - Other persistent atrial fibrillation (4) Pacemaker: Last interrogated in March 2019 without any abnormalities noted and with good battery life per notes from Dr. Kelly Status: Chronic (5) Hypertension: Controlled, on metoprolol. Had been on chlorthalidone prior to her hip surgery. It was held because of some hypotension associated with pain medications and an anaphylactic response to blood transfusion. Status: Chronic Qualifiers: Hypertension type: essential hypertension Qualified Code(s): I10 - Essential (primary) hypertension (6) Cellulitis: In the left groin/pubic area. Is status post recent surgery for incarcerated left inguinal hernia. Appears to be healing well. Currently on doxycycline until 10/12 I believe Status: Acute Qualifiers: Site of cellulitis: other site Qualified Code(s): L03.818 - Cellulitis of other sites Additional A&P Information Observation admission Serial neuro exams PT OT and speech evaluations Neurology had recommended an MRI of the head but with pacemaker we are unable to get this We will check lipid panel and add statin therapy Continue aspirin therapy Had a transthoracic echocardiogram on October 07 Consideration could be given to transesophageal echo although I do not know how her treatment would change presently CTA of the head and neck is been done twice in the past 2 days Continue anticoagulation with Coumadin although could consider potentially, if patient is agreeable and cannot afford it, to switch to 1 of the newer anticoagulants Continue home beta-blockade Monitor blood pressures for need to resume her in which she had been on previously or other alternative antihypertensive agent in the setting of cerebrovascular disease although we will hold off on adding any additional medications for another 24-48 hours Telemetry monitoring Pacemaker was interrogated in March of this year and found to be working appropriately and with good battery life Continue doxycycline through 10/12 for cellulitis in the left groin/pubic area Monitor postoperative site in the left groin for any acute changes Patient is still recovering from surgical repair of a left hip fracture in July of this year Pain control as needed Has been started on omeprazole and Carafate in August of this year it looks like, not sure of specific diagnosis but assume some heartburn or indigestion. We will continue. SCDs for DVT prophylaxis in addition to Coumadin Supportive care otherwise Plans were discussed with patient and she was given an opportunity to ask questions Upon discharge will need follow-up with Dr. Manuel who was made aware of Mrs. Dolan's case by the ER on 10/[address] Rain who was to see her for follow-up from recent inguinal hernia repair. Currently anticipate disposition back to skilled facility but with addition of speech on top of probable PT and OT that she is currently getting. Decision will have to be made about changing anticoagulants and possible prescription for statin therapy. Patient's requires care and it may be a bit longer before she can get back home to him now. Full code Attestations Medical Necessity Statement*: Currently anticipated stay less than 2 midnights in a patient presenting with recurrent neurological symptoms consistent with at least transient ischemic attack if not cerebrovascular accident. She actually had a fair amount of work-up yesterday. At that time symptoms had resolved. Will monitor overnight to ensure no further escalation in her symptoms as well as have her evaluated by therapy. Other plans as noted above. 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
[2019-10-09 23:42] VITALS: BP 142/76; PULSE 108; RESP 18; O2SAT 95
[2019-10-09 23:48] VITALS: BP 157/94; PULSE 99; RESP 18; TEMP 37.2; O2SAT 95
[2019-10-10] VITALS (12 sets, daily range): BP systolic 123–157; BP diastolic 71–94; PULSE 84–108; RESP 17–18; TEMP 36.7–37.2; O2SAT 94–96
--- NOTE | 2019-10-10 00:23 | ED_ITS ---
HPI - Neuro Symptoms/Deficit General: Chief Complaint: Neuro Symptoms/Deficit Stated Complaint: STROKE ALERT Time Seen by Provider: 10/09/19 18:08 Source: patient and EMS Mode of arrival: EMS Limitations: other (Slurred speech) History of Present Illness: HPI Narrative: This patient was seen in the emergency department yesterday for the same symptoms, facial droop and slurred s peech. She was worked up with a head CT and CTA which were both negative for acute findings. Her symptoms resolved while she was in the emergency department. The patient has a history of atrial fibrillation and she is on warfarin anticoagulation. She was therapeutic yesterday and so was not a candidate for TPA. She returns today with the same symptoms. Last known well was about 1715. She has no focal weakness, just slurred speech and facial droop. She denies any pain or difficulty breathing. No nausea or vomiting. No chest pain. No urinary symptoms. Associated symptoms: Deny headache(s), nausea or vomiting Review of Systems General: Reports: 10 or more systems reviewed and unremarkable except in HPI and below Const: Denies: fever(s), chills or body aches Eyes: Denies: change in vision or blurry vision ENMT: Denies: throat pain, enlarged tonsils, odynophagia, hoarseness, mouth pain or swelling of lips/tongue Card: Denies: palpitations, irregular heart rhythm, edema or swelling of feet/ankles Resp: Denies: dyspnea, productive cough or non-productive cough GI: Denies: abdominal pain, nausea or vomiting : Denies: flank pain, difficulty voiding, dysuria, urinary frequency, urinary urgency or urinary hesitancy Musc: Denies: neck pain, back pain or extremity swelling Skin/Breast: Denies: rash, pruritus or erythema Neuro: Reports: Slurred speech present and other (Slurred speech); Denies: headache(s), numbness in extremities or weakness in extremities Endo: Denies: polyuria, polydipsia or tired all the time [facility] ED PFSH: Medical History (Reviewed 10/10/19 @ 00:26 by Maryse Pham MD, [facility] [place] Anticoagulated Needs INR rechecked. Atrial fibrillation Atrial fibrillation, chronic History of transfusion reaction (~07/2019) anaphylactic reaction to blood transfusion in hospital, needs pretreatment with benedryl for future reactions Hypertension Pacemaker TIA (transient ischemic attack) X2 Surgical History (Reviewed 10/10/19 @ 00:26 by Maryse Pham MD, [facility] [place] History of cataract surgery History of hysterectomy Hx of cholecystectomy Status post left inguinal hernia repair (10/02/19) Status post-operative repair of closed fracture of left hip Family History (Reviewed 10/10/19 @ 00:26 by Maryse Pham MD, [facility] [place] Other CAD (coronary artery disease) Diabetes Social History (Reviewed 10/10/19 @ 00:26 by Maryse Pham MD, [facility] [place] Smoking and tobacco status: never smoked Alcohol intake: never Marital status: NIH stroke score NIHSS: Level Of Consciousness - 1a: 0 Level Of Consciousness Questions - 1b: Both Correct Level Of Consciousness Commands - 1c: Both Correct Best Gaze - 2: Normal Visual Blanco - 3: No Visual Loss Facial Palsy - 4: Partial Paralysis Motor Arm Right - 5: No Drift Motor Arm Left - 5: No Drift Motor Leg Right - 6: No Drift Motor Leg Left - 6: No Drift Limb Ataxia - 7: Absent Sensory - 8: Mild To Moderate Loss Best Language - 9: No Aphasia Dysarthia - 10: Normal If Intubated/Physcial Barrier - Explain: 3 Extinction And Inattention - 11: 0 Score: Total Score: 3 Physical Exam Const: COMMON NORMALS: no acute distress, average body habitus, patient oriented x3, no limitations, healthy appearing, alert and well nourished HENMT: COMMON NORMALS: normocephalic, atraumatic and moist oral mucous membranes HEAD & SCALP: normocephalic and atraumatic Eye: COMMON NORMALS: Equal, round and reactive pupils present, EOMs intact bilaterally, conjunctivae normal and no scleral icterus CONJUNCTIVA: Yes conjunctivae normal PUPIL: Yes Equal, round and reactive pupils present Neck/C-Spine: COMMON NORMALS: full ROM, supple, no meningeal signs, no JVD and No carotid bruits Resp: COMMON NORMALS: normal respiratory effort, No retractions, No use of accessory muscles, clear to auscultation bilaterally and percussion normal AUSCULTATION: clear to auscultation bilaterally PERCUSSION: percussion normal Cardio: COMMON NORMALS: no JVD, regular rate, regular rhythm, S1 normal heart sound present, S2 normal heart sound present, No gallops present (Cardio), No clicks present (Cardio), No murmurs present (Cardio), No rub (Cardio) and Peripheral pulses 2+ throughout RATE: regular rate RHYTHM: regular rhythm HEART SOUNDS: S1 normal heart sound present and S2 normal heart sound present PERIPHERAL PULSES: Peripheral pulses 2+ throughout GI: COMMON NORMALS: Normal to inspection, nondistended, normoactive bowel sounds present, Soft to palpation, non-tender, No hepatosplenomegaly present, no masses and no bruits PALPATION: Yes Soft to palpation and Yes No hepatosplenomegaly present : COMMON NORMALS: Yes no CVA tenderness BLADDER/KIDNEY EXAM: Yes no CVA tenderness Back/Pelvis: COMMON NORMALS: no CVA tenderness Extremity: COMMON NORMALS: normal to inspection, full ROM, capillary refill normal, no calf tenderness and no pedal edema Neuro: COMMON NORMALS: patient oriented x3 SENSORIUM/ORIENTATION: Yes alert MENINGEAL SIGNS: Yes no meningeal signs CRANIAL NERVES: Yes CN VII (facial) Laterality: right CN VII findings: facial droop SPEECH: abnormal speech Details: slurred Skin: COMMON NORMALS: no rashes or lesions noted, no wounds, turgor normal, no jaundice, no petechiae and no mottling GENERAL SKIN EXAM: no rashes or lesions noted and turgor normal Course Consultations: Consultation #1: Discussed with Dr. Juan, neurologist at [facility]. He does not believe the patient requires any acute intervention because of her anticoagulation. He however thinks the patient should be admitted for further work-up including a possible MRI Time: 21:09 Consultation #2: Discussed with Dr. Gramajo who kindly accepted the patient to her service Time: 21:15 Vital Signs: Vital signs: Vital Signs Temperature 99.0 F 10/09/19 23:48 Pulse Rate 99 10/09/19 23:48 Respiratory Rate 18 10/09/19 23:48 Blood Pressure 157/94 10/09/19 23:48 Pulse Oximetry 95 10/09/19 23:48 MDM - Neuro Symptoms/Deficit MDM Narrative: Medical decision making narrative: 84-year-old female with a history of atrial fibrillation on warfarin anticoagulation. She presented to the emergency department yesterday with strokelike symptoms but they resolved prior to discharge. She returns today with the same symptoms and they persisted. Head CT and head and neck CTA were both unremarkable and unchanged from yesterday. Because this patient is therapeutic on warfarin anticoagulation she is not a candidate for acute intervention. She is admitted for further work-up Medical Records: Attestation: I reviewed the patient's medical records. Lab Data: Attestation: I reviewed the patient's lab results. Labs: Lab Results 10/09/19 10/09/19 10/09/19 Range/Units 18:10 18:10 18:10 WBC 6.3 (4.0-10.0) 10^3/ uL RBC 4.31 (4.1-5.3) 10^6/u L Hgb 12.9 (11.5-15.3) g/dL Hct 41.3 (37.0-47.0) % MCV 95.8 (81-99) fL MCH 29.9 (28.0-34.0) pg MCHC 31.2 (30.0-36.0) g/dL RDW 13.5 (12.1-15.1) % Plt Count 317 (130-400) 10^3/c mm MPV 10.4 (7.4-10.4) fL Neut % (Auto) 58.2 % Lymph % (Auto) 24.7 % Dukes % (Auto) 9.7 % Eos % (Auto) 6.3 % Baso % (Auto) 0.8 % Neut # (Auto) 3.67 (1.8-7.7) 10^3/u L Lymph # (Auto) 1.6 (0.8-4.8) 10^3/u L Dukes # (Auto) 0.6 (0.2-0.9) 10^3/u L Eos # (Auto) 0.4 (0.0-0.8) 10^3/u L Baso # (Auto) 0.1 (0.0-0.1) 10^3/u L Nucleated RBC % (a uto) 0 % Nucleated RBCs # 0.0 /100WBC PT 27.00 H (12.1-14.9) SECO NDS INR 2.39 H (0.8-1.2) APTT 49.2 H (23.9-36.7) SECO NDS Sodium 136 (136-145) mmol/L Potassium 3.7 (3.5-5.1) mmol/L Chloride 100 (98-107) mmol/L Carbon Dioxide 29 (22-29) mmol/L Anion Gap 10.7 (5-19) BUN 11 (8-23) mg/dL Creatinine 0.7 (0.5-0.9) mg/dL GFR Calculation Not Reportable Glucose 115 (65-115) mg/dL POC Glucose (70-110) mg/dL Calculated Osmolal ity 279 L (285-295) mOsm/k g Calcium 8.9 (8.5-10.5) mg/dL Total Bilirubin 0.4 (0.15-1.2) mg/dL AST 22 (0-32) U/L ALT 16 (0-33) U/L Alkaline Phosphata se 107 H (35-105) IU/L Total Protein 7.5 (6.6-8.7) g/dL Albumin 3.7 (3.5-5.2) g/dL Globulin 3.8 (1.3-4.6) g/dL Urine Color (Yellow) Urine Appearance (CLEAR) Urine pH (5-7) Ur Specific Gravit y (1.005-1.030) Urine Protein (Negative) Urine Glucose (UA) (Normal) Urine Ketones (Negative) Urine Blood (Negative) Urine Nitrate (Negative) Urine Bilirubin (NEGATIVE) Urine Urobilinogen (Negative) mg/dL Ur Leukocyte Negra ase (Negative) Urine RBC (0-2) /hpf Urine WBC (0-5) /hpf Ur Squamous Epith Cells (0-5) Amorphous Sediment Urine Bacteria (NONE) Urine Opiates Scre en (Negative) ng/mL Ur Barbiturates Sc reen (Negative) ng/mL Ur Phencyclidine S crn (Negative) ng/mL Ur Amphetamines Sc reen (Negative) ng/mL U Benzodiazepines Scrn (Negative) ng/mL Urine Cocaine Scre en (Negative) ng/mL U Marijuana (THC) Screen (Negative) ng/mL 10/09/19 10/09/19 10/09/19 Range/Units 18:11 19:06 19:06 WBC (4.0-10.0) 10^3/ uL RBC (4.1-5.3) 10^6/u L Hgb (11.5-15.3) g/dL Hct (37.0-47.0) % MCV (81-99) fL MCH (28.0-34.0) pg MCHC (30.0-36.0) g/dL RDW (12.1-15.1) % Plt Count (130-400) 10^3/c mm MPV (7.4-10.4) fL Neut % (Auto) % Lymph % (Auto) % Dukes % (Auto) % Eos % (Auto) % Baso % (Auto) % Neut # (Auto) (1.8-7.7) 10^3/u L Lymph # (Auto) (0.8-4.8) 10^3/u L Dukes # (Auto) (0.2-0.9) 10^3/u L Eos # (Auto) (0.0-0.8) 10^3/u L Baso # (Auto) (0.0-0.1) 10^3/u L Nucleated RBC % (a uto) % Nucleated RBCs # /100WBC PT (12.1-14.9) SECO NDS INR (0.8-1.2) APTT (23.9-36.7) SECO NDS Sodium (136-145) mmol/L Potassium (3.5-5.1) mmol/L Chloride (98-107) mmol/L Carbon Dioxide (22-29) mmol/L Anion Gap (5-19) BUN (8-23) mg/dL Creatinine (0.5-0.9) mg/dL GFR Calculation Glucose (65-115) mg/dL POC Glucose 122 (70-110) mg/dL Calculated Osmolal ity (285-295) mOsm/k g Calcium (8.5-10.5) mg/dL Total Bilirubin (0.15-1.2) mg/dL AST (0-32) U/L ALT (0-33) U/L Alkaline Phosphata se (35-105) IU/L Total Protein (6.6-8.7) g/dL Albumin (3.5-5.2) g/dL Globulin (1.3-4.6) g/dL Urine Color Yellow (Yellow) Urine Appearance Clear (CLEAR) Urine pH 7 (5-7) Ur Specific Gravit y 1.010 (1.005-1.030) Urine Protein Neg (Negative) Urine Glucose (UA) Norm (Normal) Urine Ketones Negative (Negative) Urine Blood 2+ H (Negative) Urine Nitrate Negative (Negative) Urine Bilirubin Neg (NEGATIVE) Urine Urobilinogen Neg (Negative) mg/dL Ur Leukocyte Negra ase Negative (Negative) Urine RBC 5-10 H (0-2) /hpf Urine WBC 0-4 H (0-5) /hpf Ur Squamous Epith Cells 0-4 H (0-5) Amorphous Sediment Not Reportable Urine Bacteria Trace (NONE) Urine Opiates Scre en Positive H (Negative) ng/mL Ur Barbiturates Sc reen Negative (Negative) ng/mL Ur Phencyclidine S crn Negative (Negative) ng/mL Ur Amphetamines Sc reen Negative (Negative) ng/mL U Benzodiazepines Scrn Negative (Negative) ng/mL Urine Cocaine Scre en Negative (Negative) ng/mL U Marijuana (THC) Screen Negative (Negative) ng/mL Imaging Data^: CT Head: Radiologist's impression: [place] [address] CT Scan Report Signed Patient: hKushi Dolan #: [id number] : 5Acct#:[id number] Age/Sex: 84 / FADM Date: 10/09/19 Loc: [place]/Bed: Attending Dr: Ordering Provider/Ordering MD: Maryse Pham MD, [facility] [place] of Service: 10/09/19 Procedure(s): CT head wo con* [id number] Accession Number(s): [id number] Report Number: [id number] PROCEDURE INFORMATION: Exam: CT Head Without Contrast Exam date and time: 10/09/2019 6:19 PM Age: 84 years old Clinical indication: Speech disturbance; Slurred speech; Additional info: Symptoms of acute stroke TECHNIQUE: Imaging protocol: Computed tomography of the head without contrast. Radiation optimization: All CT scans at this facility use at least one of these dose optimization techniques: automated exposure control; mA and/or kV adjustment per patient size (includes targeted exams where dose is matched to clinical indication); or iterative reconstruction. Other technique: STROKE PROTOCOL was implemented. COMPARISON: CT head wo con* [id number] 10/08/2019 7:28 AM RADIATION DOSE METRICS: Total DLP (mGy-cm): 862.44 FINDINGS: Brain: No hemorrhage. Stable white matter, small old right basal ganglia lacunar infarcts. No mass effect. Ventricles: Normal. No ventriculomegaly. Bones/joints: Unremarkable. No acute fracture. Sinuses: No acute sinusitis. Mastoid air cells: Unremarkable. Soft tissues: Unremarkable. CT/CT head wo con* [id number] IMPRESSION: No acute intracranial abnormality. ASSESSMENT: ASPECTS ([place] Stroke Program Early CT Score) is 10. Radiation Dose CTDIVOL = (mGy): DLP = 862.44 (mGy-cm) Dictated By:Austin Hickman MD Signed By:Austin Hickman MDSigned Date/Time:10/09/191829 DD/ [address]: Radiologist's impression: [place] [address] CT Scan Report Signed Patient: Khushi Dolan #: [id number] : 5Acct#:[id number] Age/Sex: 84 / FADM Date: 10/09/19 Loc: [place]/Bed: Attending Dr: Ordering Provider/Ordering MD: Maryse Pham MD, [facility] [place] of Service: 10/09/19 Procedure(s): CT angio headneck* [id number] Accession Number(s): [id number] Report Number: [id number] PROCEDURE INFORMATION: Exam: CT Angiography Head With Contrast Exam date and time: 10/09/2019 6:23 PM Age: 84 years old Clinical indication: Speech disturbance; Slurred speech; Additional info: Stroke-like symptoms TECHNIQUE: Imaging protocol: Computed tomography angiography of the head with intravenous contrast. 3D rendering: MIP and/or 3D reconstructed images were created by the technologist. Radiation optimization: All CT scans at this facility use at least one of these dose optimization techniques: automated exposure control; mA and/or kV adjustment per patient size (includes targeted exams where dose is matched to clinical indication); or iterative reconstruction. Contrast material: OMNI 350; Contrast volume: 95 ml; Contrast route: INTRAVENOUS (IV); COMPARISON: CT angio headneck* [id number] 2019-10-08 08:38 RADIATION DOSE METRICS: Total DLP (mGy-cm): 1217.18 FINDINGS: ANTERIOR CIRCULATION: Right internal carotid artery: Mild cavernous and supraclinoid right internal carotid artery atherosclerotic plaque and stenosis. Right middle cerebral artery: Mild to moderate right MCA atherosclerosis irregularity and stenosis. Right anterior cerebral artery: Unremarkable. No occlusion or significant stenosis. No aneurysm. Left internal carotid artery: Mild cavernous and supraclinoid left internal carotid artery atherosclerotic plaque and stenosis. Left middle cerebral artery: Left MCA M2 branches appear patent. Severe focal stenosis in the left MCA M1 mid segment. Left anterior cerebral artery: Unremarkable. No occlusion or significant stenosis. No aneurysm. POSTERIOR CIRCULATION: Right vertebral artery: Unremarkable. No occlusion or significant stenosis. No aneurysm. Left vertebral artery: Unremarkable. No occlusion or significant stenosis. No aneurysm. Basilar artery: Unremarkable. No occlusion or significant stenosis. No aneurysm. Right posterior cerebral artery: Moderate to severe right MUSIC THERAPY SPECIALIST P2 segment stenosis. right MUSIC THERAPY SPECIALIST origin. Left posterior cerebral artery: Severe left MUSIC THERAPY SPECIALIST P2 segment stenosis. Centrally left MUSIC THERAPY SPECIALIST origin. IMPRESSION: 1. No significant change from yesterday. 2. Mild to moderate right MCA atherosclerosis irregularity and stenosis. 3. Severe focal stenosis in the left MCA M1 segment. Not significantly changed. 4. Severe left MUSIC THERAPY SPECIALIST P2 segment stenosis. 5. Moderate to severe right MUSIC THERAPY SPECIALIST P2 segment stenosis. PROCEDURE INFORMATION: Exam: CT Angiography Neck With Contrast Exam date and time: 10/09/2019 6:23 PM Age: 84 years old Clinical indication: Speech disturbance; Slurred speech; Additional info: Stroke-like symptoms TECHNIQUE: Imaging protocol: Computed tomography angiography of the neck with intravenous contrast. 3D rendering: MIP and/or 3D reconstructed images were created by the technologist. Radiation optimization: All CT scans at this facility use at least one of these dose optimization techniques: automated exposure control; mA and/or kV adjustment per patient size (includes targeted exams where dose is matched to clinical indication); or iterative reconstruction. Contrast material: OMNI 350; Contrast volume: 95 ml; Contrast route: INTRAVENOUS (IV); COMPARISON: CT angio headneck* [id number] 2019-10-08 08:38 RADIATION DOSE METRICS: Total DLP (mGy-cm): 1217.18 FINDINGS: Right common carotid artery: No stenosis. No dissection or occlusion. Right internal carotid artery: No stenosis of the extracranial segment. No dissection or occlusion. Right external carotid artery: No occlusion or stenosis of the origin. Right vertebral artery: No stenosis. No dissection or occlusion. Left common carotid artery: No stenosis. No dissection or occlusion. Left internal carotid artery: Mild atherosclerotic plaque in the proximal left internal carotid artery and carotid bulb with less than 50% stenosis by NASCET criteria. Left external carotid artery: No occlusion or stenosis of the origin. Left vertebral artery: No stenosis. No dissection or occlusion. Thyroid: Innumerable enhancing thyroid nodules measuring up to 1 cm, correlate with ultrasound. Bones/joints: Moderate cervical spondylosis. Soft tissues: Normal. No significant soft tissue swelling. Other findings: AICD/Pacemaker device is present, and its leads are in appropriate position. CT/CT angio headneck* [id number] IMPRESSION: 1. No significant change from yesterday CTA. 2. Innumerable enhancing thyroid nodules measuring up to 1 cm, correlate with ultrasound. 3. Mild atherosclerotic plaque in the proximal left internal carotid artery and carotid bulb with less than 50% stenosis by NASCET criteria. COMMENTS: Consistent with the [employer]'s Incidental Findings Committee white paper (J Am Sheila Radiol 2015): In patients aged 35 years and older with an incidental thyroid nodule equal to or greater than 1.[address], MRI or extrathyroidal US, further evaluation with dedicated thyroid US is recommended for patients with normal life expectancy and without comorbidities. For smaller nodules without suspicious features, no further evaluation or follow up is recommended. REFERENCES: NASCET CRITERIA. The degree of internal carotid artery stenosis is based on NASCET criteria. Normal is no stenosis. Mild is less than 50% stenosis. Moderate is 50-69% stenosis. Severe is 70% to 99% stenosis. Total occlusion is no detectable patent lumen. Radiation Dose CTDIVOL = (mGy): DLP = 1217.18~1217.18 (mGy-cm) Dictated By:Austyn Sutton MD Signed By:Austyn Sutton MDSigned Date/Time:10/09/191923 DD/ 21 EKG Data^: EKG 1: Attestation: I personally reviewed and interpreted this EKG as follows: EKG interpretation date: 10/09/19 EKG interpretation time: 18:27 Interpretation: Atrial fibrillation. Heart rate 92 bpm. Incomplete right bundle branch block. Discharge Plan Discharge Patient Disposition: Admitted As Inpatient Admit Provider: Paola Gramajo Clinical Impression: Cerebrovascular accident Condition: Stable Interventions: ED Discharge Assessment Last Done: 10/09/19 23:42 ED Charges Last Done: 10/09/19 23:42 Discharge Date/Time: 10/09/19 23:30 Coding Level of Care Code ED Repack Room Worker for Davonte Rodríguez
[2019-10-10] MEDS: D5-NS 0.45% + KCL 20 mEq 20 MEQ/1,000 ML BAG 75 MEQ IV (03:47)
[2019-10-10 04:53] LABS: Basophils # 0.1 10^3/uL (0.0-0.1); Basophils % 0.9 %; Eosinophils # 0.4 10^3/uL (0.0-0.8); Eosinophils % 6.3 %; Hematocrit 36.2 % (37.0-47.0); Hemoglobin 11.4 g/dL (11.5-15.3); Lymphocytes # 1.4 10^3/uL (0.8-4.8); Lymphocytes % 20.6 %; Mean Corpuscular HGB Conc 31.5 g/dL (30.0-36.0); Mean Corpuscular Hemoglobin 29.8 pg (28.0-34.0); Mean Corpuscular Volume 94.5 fL (81-99); Mean Platelet Volume 10.1 fL (7.4-10.4); Monocytes # 0.5 10^3/uL (0.2-0.9); Monocytes % 8.2 %; Neutrophils # 4.16 10^3/uL (1.8-7.7); Neutrophils % 63.5 %; Nucleated Red Blood Cells % 0 %; Platelet Count 290 10^3/cmm (130-400); Red Blood Count 3.83 10^6/uL (4.1-5.3); Red Cell Distribution Width 13.3 % (12.1-15.1); White Blood Count 6.6 10^3/uL (4.0-10.0)
[2019-10-10 05:01] LABS: INR 2.35 (0.8-1.2)
[2019-10-10 05:08] LABS: Cholesterol 111 mg/dL (0-200); HDL Cholesterol 37 mg/dL (60-100); LDL Cholesterol Calculated 60 mg/dL (50-129); LDL HDL Ratio 1.62 RATIO (0.00-3.22); Triglycerides 71 mg/dL (0-150)
[2019-10-10 05:13] LABS: Anion Gap 10.8 (5-19); Blood Urea Nitrogen 8 mg/dL (8-23); Calcium 8.7 mg/dL (8.5-10.5); Carbon Dioxide 29 mmol/L (22-29); Chloride 102 mmol/L (98-107); Glucose 119 mg/dL (65-115); Osmolality Calculated 283 mOsm/kg (285-295); Potassium 3.8 mmol/L (3.5-5.1); Sodium 138 mmol/L (136-145)
--- NOTE | 2019-10-10 08:58 | PC.PHAR ---
Two orders for home warfarin 4 daily and alternating 3 & 4 continued with meds. Called nurse who interviewed patient while I was on phone (could hear conversation). Patient stated she takes one 4mg tablet daily. When asked multiple times about alternating doses she stated no, but added when she is too thin she is told to adjust. Continued 4mg order, dc'd alternating.
--- NOTE | 2019-10-10 09:07 | PC.NURSE ---
Patient is NPO until speech come and does eval.
--- NOTE | 2019-10-10 11:49 | PC.CHAP ---
Pastoral Care Encounter/Spiritual Assessment Type of Contact [] Declined documentation specialist visit [] Patient/Family/Request visit [] Outpatient visit [] Follow-up visit [] Physician referral [] Code/Alert [X] Routine visit [] Staff referral [] Actively dying [] Patient sleeping [] Family support [] [] Out of room [] Palliative care [] [] Receiving care in room [] Pre-surgical visit [] Trauma [] Long length of stay [] ICU visit [] Other: Relational/Emotional Strength [] Patient feels connected with others/family/visitors/staff [] Distress [] Loneliness/isolation [] Abandonment Spirituality of Patient [] Person of Sandhya [] Attends Alevism of their Sandhya [] Believes in Prayer [] Reads Bible or Scientologist materials [] There are Spiritual issues to be addressed Molder Feeder Interventions [] Prayer [] Active listening [] Non-anxious presence [] Spiritual/emotional support [] Crisis/trauma care [] Spiritual counseling [] Bereavement support [] Provided bereavement packet [] Provided Bible/devotional materials [] Provided toy/stuffed animal, coloring book to patient or family member [] Provided Communion [] Anointing/[place] [] Salvation [] Completed spiritual assessment [] Other: Impact on Illness or Injury [] Angry [] Fearful [] Anxious [] Often cries [] Exhaustion [] Unable to work [] Unable to attend oriental orthodox [] Unable to walk/stand [] Unable to read [] Unable to drive [] Unable to eat/drink [] Unable to sleep [] Unable to be with family [] Patient intubated [] Other: Summary Time spent with patient
[2019-10-10] MEDS: ferrous sulfate EC 325 mg Tablet PO ×2 (12:07→18:08)
[2019-10-10] MEDS: pantoprazole DR 40 mg Tablet PO (12:08)
[2019-10-10] MEDS: docusate sodium 100 mg Capsule PO ×2 (12:08→18:08)
[2019-10-10] MEDS: doxycycline 100 mg Tablet PO ×2 (12:09→18:08)
[2019-10-10] MEDS: metoprolol succinate ER (24 HR) 100 mg Tablet PO (12:09)
[2019-10-10] MEDS: aspirin 81 mg Chew Tablet PO (12:09)
[2019-10-10] MEDS: potassium chloride ER 10 mEq Tablet 20 MEQ PO (12:09)
[2019-10-10] MEDS: multivitamin therapeutic Tablet 1 TAB PO (12:09)
[2019-10-10] MEDS: sucralfate 1 gm/10 mL Oral Liq UDC PO ×3 (12:10→19:56)
--- NOTE | 2019-10-10 12:30 | P.PN_ITS ---
Subjective Subjective: Interval history: This morning patient was examined, she sitting up in bed, she was able to ambulate with the nurse to the bathroom, she has a minimal right facial droop, she does have slurring of her speech, productive aphasia, receptive aphasia, no focal neurologic deficits, answers most questions appropriately, no chest pain, no shortness of breath, no lightheadedness, no dizziness Vitals/I&O/Wt Last Vital Signs Temp 98.6 F 10/10/19 11:46 Pulse 107 H 10/10/19 11:46 Resp 18 10/10/19 11:46 BP 143/88 10/10/19 11:46 Pulse Ox 96 10/10/19 11:46 Weight last 48 hrs Weight 72.484 kg Physical Exam Const: COMMON NORMALS: no acute distress, patient oriented x3 and alert ORIENTATION/CONSCIOUSNESS: Yes oriented to person and Yes oriented to place HENMT: COMMON NORMALS: normocephalic HEAD & SCALP: normocephalic Neck/C-Spine: COMMON NORMALS: no JVD Resp: COMMON NORMALS: normal respiratory effort, No retractions, No use of accessory muscles and clear to auscultation bilaterally AUSCULTATION: clear to auscultation bilaterally Cardio: COMMON NORMALS: no JVD, regular rate, regular rhythm, S1 normal heart sound present and S2 normal heart sound present RATE: regular rate RHYTHM: regular rhythm HEART SOUNDS: S1 normal heart sound present and S2 normal heart sound present GI: COMMON NORMALS: Normal to inspection, nondistended, normoactive bowel sounds present, Soft to palpation, non-tender, No hepatosplenomegaly present, no masses and no bruits PALPATION: Yes Soft to palpation and Yes No hepatosplenomegaly present Extremity: COMMON NORMALS: capillary refill normal, no clubbing, cyanosis or edema, no calf tenderness and no pedal edema Neuro: COMMON NORMALS: patient oriented x3 and CN's II-XII intact bilaterally SENSORIUM/ORIENTATION: Yes alert, Yes oriented to person and Yes oriented to place COORDINATION/BALANCE: [id number] test normal SPEECH: abnormal speech and expressive aphasia MOTOR EXAM: 5/5 motor strength present throughout COORDINATION: [id number]-dp-[id number] test normal OTHER: Right facial droop is present Psych: COMMON NORMALS: mental status grossly normal Data : 10/10/19 04:21 10/10/19 04:21 A&P Assessment and plan (1) Cerebrovascular accident: -Concerns for left-sided CVA -Currently with right-sided facial droop and dysarthria, improving -Presented to the emergency room on 10/08/2019 left-sided facial droop and dysarthria -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 -INR currently therapeutic, but has was off off Coumadin due to incarcerated inguinal hernia status post surgical repair on last admission October 06, 2019, has been therapeutic since 10/08/2019 -Likely patient developed a multiple thrombus, and has embolized -Echocardiogram on 10/08/2019, showed left ventricular ejection fraction 60%, mild hypokinesis of the septum, moderate biatrial enlargement, mild palmar hypertension, pacemaker wire in the right atrium, right ventricle, no thrombus was seen, but obviously not a transesophageal echocardiogram -CTA head and neck shows: Mild to moderate right MCA atherosclerosis irregularity and stenosis. Severe focal stenosis in the left MCA M1 segment. Not significantly changed. Severe left DATA BASE DESIGN ANALYST P2 segment stenosis. Moderate to severe right DATA BASE DESIGN ANALYST P2 segment stenosis.Mild atherosclerotic plaque in the proximal left internal carotid artery and carotid bulb with less than 50% stenosis by NASCET criteria. -When patient presented to ER on 10/08/2019, Dr. Kent spoke to Dr. Manuel, who advised to add aspirin, no TPA as was on Coumadin INR was therapeutic, no acute acute intervention, patient was back to baseline from left-sided facial d case and dysarthria -When patient presented to ER on 10/10/2019, Dr. Pham spoke to Dr. Manuel a nd neurologist at [facility], advised to do an MRI, but patient has pacemaker, advised no acute interventions for stenosis as above, and to conservatively manage, close follow-up with Dr. Manuel as outpatient Plan: -Admit to general medical floors -Allow for permissive hypertension for the next 48 hours -Treat if systolic blood pressure greater than 220, diastolic greater than 120 -Continue gentle hydration -Continue neurochecks, aspiration precautions -We will have speech therapy evaluate patient -Continue PT OT -Continue aspirin 81 mg daily, atorvastatin 80 mg daily -I will switch patient's Coumadin to Eliquis once INR is less than 2 -Patient is to follow-up with Dr. Manuel as outpatient Status: Acute Qualifiers: CVA mechanism: unspecified Qualified Code(s): I63.9 - Cerebral infarction, unspecified (2) Chronic anticoagulation: Chronically on Coumadin with currently therapeutic INR although has had reversal recently due to need for surgery and also required reversal back in [facility] also for surgery. -Switch from Coumadin to Eliquis today Status: Chronic (3) Atrial fibrillation: Chronically on metoprolol and has a pacemaker, on Coumadin. Has been on Coumadin for many many years. We will switch to Eliquis Status: Chronic Qualifiers: Atrial fibrillation type: persistent (not longstanding) Qualified Code(s): I48.19 - Other persistent atrial fibrillation (4) Pacemaker: Last interrogated in March 2019 without any abnormalities noted and with good battery life per notes from Dr. Kelly Status: Chronic (5) Hypertension: Controlled, on metoprolol. Had been on chlorthalidone prior to her hip surgery. It was held because of some hypotension associated with pain medications and an anaphylactic response to blood transfusion. Status: Chronic Qualifiers: Hypertension type: essential hypertension Qualified Code(s): I10 - Essential (primary) hypertension (6) Cellulitis: In the left groin/pubic area. Is status post recent surgery for incarcerated left inguinal hernia. Appears to be healing well. Currently on doxycycline until 10/12 I believe Status: Acute Qualifiers: Site of cellulitis: other site Qualified Code(s): L03.818 - Cellulitis of other sites Additional A&P Information Observation admission Serial neuro exams PT OT and speech evaluations Neurology had recommended an MRI of the head but with pacemaker we are unable to get this We will check lipid panel and add statin therapy Continue aspirin therapy Had a transthoracic echocardiogram on October 07 Consideration could be given to transesophageal echo although I do not know how her treatment would change presently CTA of the head and neck is been done twice in the past 2 days Continue home beta-blockade Monitor blood pressures for need to resume her in which she had been on previously or other alternative antihypertensive agent in the setting of cerebrovascular disease although we will hold off on adding any additional medi cations for another 24-48 hours Telemetry monitoring Pacemaker was interrogated in March of this year and found to be working appropriately and with good battery life Continue doxycycline through 10/12 for cellulitis in the left groin/pubic area Monitor postoperative site in the left groin for any acute changes Patient is still recovering from surgical repair of a left hip fracture in July of this year Pain control as needed Has been started on omeprazole and Carafate in August of this year it looks like, not sure of specific diagnosis but assume some heartburn or indigestion. We will continue. SCDs for DVT prophylaxis in addition to Coumadin Supportive care otherwise Plans were discussed with patient and she was given an opportunity to ask questions Upon discharge will need follow-up with Dr. Manuel who was made aware of Mrs. Dolan's case by the ER on 10/[address] Rain who was to see her for follow-up from recent inguinal hernia repair. Currently anticipate disposition back to skilled facility but with addition of speech on top of probable PT and OT that she is currently getting. Decision will have to be made about changing anticoagulants and possible prescription for statin therapy. Patient's requires care and it may be a bit longer before she can get back home to him now. Full code Attestations Medical Necessity Statement*: Patient requires continued hospitalization for acute CVA Coding Level of Care Code Acute Senior Mainframe Developer for [facility] Fwd Diagnoses Cerebrovascular accident I63.9 CVA mechanism: unspecified Chronic anticoagulation Z79.01 Atrial fibrillation I48.19 Atrial fibrillation type: persistent (not longstanding) Pacemaker Z95.0 Hypertension I10 Hypertension type: essential hypertension Cellulitis L03.818 Site of cellulitis: other site
--- NOTE | 2019-10-10 12:37 | USR_ITS ---
PROCEDURE INFORMATION: Exam: US Soft Tissue Head and Neck, Thyroid Exam date and time: 10/10/2019 2:08 PM Age: 84 years old Clinical indication: Abnormal findings; Abnormal radiologic study of neck; Additional info: Thyroid nodule TECHNIQUE: Imaging protocol: Real-time ultrasound scan of the neck with image documentation. Exam focused on the thyroid. COMPARISON: CT head wo con* [id number] 10/09/2019 5:58 PM FINDINGS: Right thyroid lobe: Measures 3.2 x 2.1 x 1.7 cm. There is a 1.1 cm nodule in the mid right thyroid. There is a 0.3 cm cyst in the right thyroid. Left thyroid lobe: Measures 2.7 x 1.3 x 1.3 cm. There is a 0.3 cm cyst in the left thyroid. There is a 0.7 cm solid nodule in the superior left thyroid. Isthmus: No nodules. US/US thyroid [id number] IMPRESSION: There are bilateral thyroid nodules.
[2019-10-10 13:10] LABS: Thyroid Stimulating Hormone 1.38 uIU/mL (0.27-4.20)
[2019-10-10] MEDS: sodium chloride 0.9% 1,000 ML 100 ML IV (16:06)
[2019-10-10 16:25] LABS: INR 2.39 (0.8-1.2)
--- NOTE | 2019-10-10 18:35 | PC.NURSE ---
THIS NURSE WALKED PT TO THE BATHROOM FIRST THING THIS MORNING, PT WALKED FINE, BUT DUE TO PREVIOUS HIP SURGERY STATED SHE NEEDED A WALKER DUE TO HER STILL WORKING WITH THERAPY, SHE AMBULATED WITH THIS NURSE JUST FINE. PT HAS HAD NO COMPLAINTS OF PAIN, OR DISCOMFORT, ONLY COMPLAINT IS HER BEING CONSTIPATED SINCE SATURDAY, THIS NURSE GOT AN ORDER FOR MIRALAX FROM DR NEIL. PT DID STATE BY END OF SHIFT SHE HAD A SMALL BM, BUT FEELS THOUGH SHE STILL NEEDS TO GO TO THE BATHROOM. PT SPEECH IS SLURRED, BUT THIS NURSE FEELS AT THIS END OF THE SHIFT HER SPEECH HAS IMPROVED SLIGHTLY, BUT IS STILL SLURRED. PT MANAGER VALUATION ARE EQUAL, LEG STRENGTH IS SLIGHTLY DIFFERENT DUE TO HER HIP REPLACEMENT IN JULY. PT COULD STILL ELEVATE LEGS ON OWN AND HOLD FOR 10+ SECONDS AT THIS TIME. PT TELEMETRY HAS READ AFIBB ALL SHIFT, WITH HEART RATE RUNNING IN 90'S TO LOW 100'S.
[2019-10-10] MEDS: atorvastatin 40 mg Tablet 80 MG PO (19:56)
[2019-10-11] VITALS (7 sets, daily range): BP systolic 129–142; BP diastolic 64–79; PULSE 77–93; RESP 16–18; TEMP 36.4–36.9; O2SAT 94–97
[2019-10-11] MEDS: sodium chloride 0.9% 1,000 ML 100 ML IV (00:55)
[2019-10-11 04:54] LABS: Basophils # 0.1 10^3/uL (0.0-0.1); Eosinophils # 0.5 10^3/uL (0.0-0.8); Eosinophils % 6.3 %; Hematocrit 37.5 % (37.0-47.0); Hemoglobin 11.7 g/dL (11.5-15.3); Lymphocytes # 1.5 10^3/uL (0.8-4.8); Lymphocytes % 21.6 %; Mean Corpuscular HGB Conc 31.2 g/dL (30.0-36.0); Mean Corpuscular Hemoglobin 29.6 pg (28.0-34.0); Mean Corpuscular Volume 94.9 fL (81-99); Mean Platelet Volume 9.9 fL (7.4-10.4); Monocytes # 0.7 10^3/uL (0.2-0.9); Neutrophils % 60.7 %; Nucleated Red Blood Cells % 0 %; Platelet Count 306 10^3/cmm (130-400); Red Blood Count 3.95 10^6/uL (4.1-5.3); Red Cell Distribution Width 13.4 % (12.1-15.1); White Blood Count 7.1 10^3/uL (4.0-10.0)
[2019-10-11 05:04] LABS: INR 2.24 (0.8-1.2)
[2019-10-11 05:14] LABS: Alanine Aminotransferase 13 U/L (0-33); Albumin Level 3.4 g/dL (3.5-5.2); Alkaline Phosphatase 94 IU/L (35-105); Anion Gap 9.1 (5-19); Aspartate Amino Transferase 20 U/L (0-32); Blood Urea Nitrogen 6 mg/dL (8-23); Calcium 8.8 mg/dL (8.5-10.5); Carbon Dioxide 28 mmol/L (22-29); Chloride 104 mmol/L (98-107); Globulin 3.4 g/dL (1.3-4.6); Glucose 104 mg/dL (65-115); Osmolality Calculated 280 mOsm/kg (285-295); Potassium 4.1 mmol/L (3.5-5.1); Sodium 137 mmol/L (136-145); Total Bilirubin 0.6 mg/dL (0.15-1.2); Total Protein 6.8 g/dL (6.6-8.7)
[2019-10-11] MEDS: sucralfate 1 gm/10 mL Oral Liq UDC PO ×2 (06:09→10:30)
[2019-10-11] MEDS: docusate sodium 100 mg Capsule PO (08:16)
[2019-10-11] MEDS: pantoprazole DR 40 mg Tablet PO (08:16)
[2019-10-11] MEDS: multivitamin therapeutic Tablet 1 TAB PO (08:16)
[2019-10-11] MEDS: potassium chloride ER 10 mEq Tablet 20 MEQ PO (08:16)
[2019-10-11] MEDS: doxycycline 100 mg Tablet PO (08:16)
[2019-10-11] MEDS: polyethylene glycol 3350 Pkt 17 gm PO (08:17)
[2019-10-11] MEDS: aspirin 81 mg Chew Tablet PO (08:17)
[2019-10-11] MEDS: ferrous sulfate EC 325 mg Tablet PO (08:17)
[2019-10-11] MEDS: metoprolol succinate ER (24 HR) 100 mg Tablet PO (08:17)
--- NOTE | 2019-10-11 11:01 | P.DS_ITS ---
Discharge Providers Date of Admission: 10/10/19 15:33 Date of Discharge: October 11, 2019 Attending Provider at Admission: Paola Gramajo MD Attending Provider at Discharge: Jonathon Phelan MD Primary Care Provider: Clarence Mendieta MD Diagnoses at Discharge Discharge Diagnosis (1) Cerebrovascular accident: Status: Acute Qualifiers: CVA mechanism: unspecified Qualified Code(s): I63.9 - Cerebral infarction, unspecified (2) Chronic anticoagulation: Status: Chronic Problem details: Coumadin (3) Atrial fibrillation: Status: Chronic Qualifiers: Atrial fibrillation type: persistent (not longstanding) Qualified Code(s): I48.19 - Other persistent atrial fibrillation (4) Pacemaker: Status: Chronic (5) Hypertension: Status: Chronic Qualifiers: Hypertension type: essential hypertension Qualified Code(s): I10 - Essential (primary) hypertension (6) Cellulitis: Status: Acute Problem details: left groin/pubis Qualifiers: Site of cellulitis: other site Qualified Code(s): L03.818 - Cellulitis of other sites Reason for Visit Reason for Visit: Facial droop and dysarthria Hospital Course Discharge Summary: This this is a very kind 84-year-old female with a past medical history of atrial fibrillation on chronic anticoagulation with Coumadin, history of pacemaker placement, hypertension, recent history of incarcerated inguinal hernia status post surgical repair and with complications of cellulitis, on doxycycline, in July 2019 she had a fall and sustained a left hip fracture status post repair. Patient presents to [facility] due to concerns for right-sided facial droop, and dysarthria Patient was admitted to [facility] for right-sided facial droop, dysarthria likely secondary to embolic CVA. Patient presented to the emergency room on 10/08/2019, for left-sided facial droop and dysarthria, was not a TPA candidate as she was on Coumadin, Dr. Manuel was contacted, was discharged to the half-way, on aspirin, continue Coumadin. As per review of the records, she has been therapeutic in terms of her INR since 10/08/2019. However she presented to the emergency room again due to symptoms on the right side, again not a TPA candidate, Dr. Manuel was notified and neuro neurologist at [facility] were notified, recommended a MRI of the brain, but she has a pacemaker in place. Patient has been off Coumadin due to repair of incarcerated inguinal hernia on admission in October 06, 2019, also she was off Coumadin after her left hip fracture repair. Thus likely patient developed clots when she was off anticoagulation, which have embolized now 2 times, causing now an embolic stroke. Patient did have an transthoracic echocardiogram on 10/25/2019, which did not show any thrombus but obviously she would require transesophageal echocardiogram for better delineation. Patient did have a CT angiogram of the head and neck which showed:Mild to moderate right MCA atherosclerosis irregularity and stenosis. Severe focal stenosis in the left MCA M1 segment. Not significantly changed. Severe left END USER SUPPORT SPECIALIST P2 segment stenosis. M oderate to severe right END USER SUPPORT SPECIALIST P2 segment stenosis.Mild atherosclerotic plaque in the proximal left internal carotid artery and carotid bulb with less than 50% stenosis by NASCET criteria. Neurologist at [facility] advised that there is was no significant interventions for these multiple areas of stenosis. Patient was admitted to the general medical floors, received neurochecks, IV fluids, allowed for permissive hypertension, telemetry monitoring, she had speech therapy, physical therapy evaluation. Patients facial droop significantly improved, was quite minimal before discharge. In terms of dysarthria, that has also significantly improved, she does have moderate dysarthria upon discharge, but has significantly improved since admission. She was discharged on a mechanical soft diet, nectar thickened liquid. She will require extensive speech therapy. Patient did not have any other significant focal neurologic deficits, but would benefit from physical therapy. In terms of her dysarthria and her dysphasia, I think that she will have a significant clinical progress if she were to continue to get speech therapy at the half-way. I have discharged the patient on aspirin 81 mg daily, atorvastatin 80 mg daily. In terms of anticoagulation, I have stopped Coumadin. Plan is to transition over to Eliquis. However patient's INR on discharge is 2.24. I have instructed the nurses to be quite clear with the half-way, to check INRs daily, once INR is less than 2, start Eliquis 5 mg twice daily. I will make sure that the nurse is quite clear with the half-way that they should not forget to start her anticoagulation, all were waiting for is for her INR to drop to less than 2, due to risk of life-threatening bleeding. I also went over this with patient, she voiced understanding, all questions answered, agreed to proceed with plan to transition to [facility]. I will have patient follow with Dr. Manuel in the next week. Follow-up with Dr. Kelly in the next 2 weeks. Physical Exam Const: COMMON NORMALS: no acute distress, patient oriented x3 and alert ORIENTATION/CONSCIOUSNESS: Yes oriented to person and Yes oriented to place HENMT: COMMON NORMALS: normocephalic HEAD & SCALP: normocephalic Neck/C-Spine: COMMON NORMALS: no JVD Resp: COMMON NORMALS: normal respiratory effort, No retractions, No use of accessory muscles and clear to auscultation bilaterally AUSCULTATION: clear to auscultation bilaterally Cardio: COMMON NORMALS: no JVD, regular rate, regular rhythm, S1 normal heart sound present and S2 normal heart sound present RATE: regular rate RHYTHM: regular rhythm HEART SOUNDS: S1 normal heart sound present and S2 normal heart sound present GI: COMMON NORMALS: Normal to inspection, nondistended, normoactive bowel sounds present, Soft to palpation, non-tender, No hepatosplenomegaly present, no masses and no bruits PALPATION: Yes Soft to palpation and Yes No hepatosplenomegaly present Extremity: COMMON NORMALS: capillary refill normal, no clubbing, cyanosis or edema, no calf tenderness and no pedal edema Neuro: COMMON NORMALS: patient oriented x3 and CN's II-XII intact bilaterally SENSORIUM/ORIENTATION: Yes alert, Yes oriented to person and Yes oriented to place COORDINATION/BALANCE: [id number] test normal SPEECH: abnormal speech and expressive aphasia MOTOR EXAM: 5/5 motor strength present throughout COORDINATION: [id number]-wq-dpse test normal OTHER: Right facial droop is very minimal today, slurring of her speech has significantly improved, in terms her swallowing she is on a mechanical soft, nectar thick liquid diet Psych: COMMON NORMALS: mental status grossly normal Discharge Data Data Completed and Pending: Completed Studies During Hospitalization Category Date Time Status CT angio headneck * [id number] Stat Cat Scan 10/09/19 18:[address] head wo con* [id number] Stat Cat Scan 10/09/19 18:17 [place]pleted [place] thyroid [id number] Routine Ultrasound 10/10/19 12:37 Completed Pending at discharge Category Date Time Status Complete Blood Co unt w/Auto AM LABS Lab 10/12/19 04:00 Ordered Complete Blood Co unt w/Auto AM LABS Lab 10/13/19 04:00 Ordered Comprehensive Met abolic Panel AM LA BS Lab 10/12/19 04:00 Ordered Comprehensive Met abolic Panel AM LA BS Lab 10/13/19 04:00 Ordered Prothrombin Time INR AM LABS Lab 10/12/19 04:00 Ordered Prothrombin Time INR AM LABS Lab 10/13/19 04:00 Ordered Labs from last 24 hours 10/11/19 10/11/19 10/11/19 04:37 04:37 04:37 WBC 7.1 RBC 3.95 L Hgb 11.7 Hct 37.5 MCV 94.9 MCH 29.6 MCHC 31.2 RDW 13.4 Plt Count 306 MPV 9.9 Neut % (Auto) 60.7 Lymph % (Auto) 21.6 [place] % (Auto) 10.0 Eos % (Auto) 6.3 Baso % (Auto) 1.0 Neut # (Auto) 4.30 Lymph # (Auto) 1.5 [place] # (Auto) 0.7 Eos # (Auto) 0.5 Baso # (Auto) 0.1 Nucleated RBC % (a uto) 0 Nucleated RBCs # 0.0 PT 25.60 H INR 2.24 H Sodium 137 Potassium 4.1 Chloride 104 Carbon Dioxide 28 Anion Gap 9.1 BUN 6 L Creatinine 0.6 GFR Calculation Not Reportable Glucose 104 Calculated Osmolal ity 280 L Calcium 8.8 Total Bilirubin 0.6 AST 20 ALT 13 Alkaline Phosphata se 94 Total Protein 6.8 Albumin 3.4 L Globulin 3.4 TSH 10/10/19 10/10/19 16:02 04:21 WBC RBC Hgb Hct MCV MCH MCHC RDW Plt Count MPV Neut % (Auto) Lymph % (Auto) [place] % (Auto) Eos % (Auto) Baso % (Auto) Neut # (Auto) Lymph # (Auto) [place] # (Auto) Eos # (Auto) Baso # (Auto) Nucleated RBC % (a uto) Nucleated RBCs # PT 27.00 H INR 2.39 H Sodium Potassium Chloride Carbon Dioxide Anion Gap BUN Creatinine GFR Calculation Glucose Calculated Osmolal ity Calcium Total Bilirubin AST ALT Alkaline Phosphata se Total Protein Albumin Globulin TSH 1.38 Vitals: Last Vital Signs Temp 98.2 F 10/11/19 07:59 Pulse 85 10/11/19 07:59 Resp 18 10/11/19 07:59 BP 139/73 10/11/19 07:59 Pulse Ox 95 10/11/19 07:59 Discharge Plan Discharge Patient Disposition: Home Condition: Stable Prescriptions: New atorvastatin 40 mg Tablet 80 mg PO BEDTIME 30 Days Qty: 60 RF: 0 Eliquis 5 mg tablet 5 mg PO BID 30 Days Qty: 60 RF: 0 Continued multivitamin Tablet 1 tab PO DAILY RF: 0 metoprolol succinate [Toprol XL] 100 mg tablet extended release 24 hr 100 mg PO DAILY Qty: 90 RF: 3 doxycycline hyclate 1 tab PO DAILY RF: 0 ferrous sulfate [iron] 325 mg (65 mg iron) Tablet 325 mg PO BID RF: 0 omeprazole 20 mg Capsule,Delayed Release(Dr/Ec) 20 mg PO DAILY RF: 0 potassium chloride 20 mEq Tablet Extended Release 20 meq PO DAILY RF: 0 hydrocodone-acetaminophen 5-325 mg tablet 1 - 2 tab PO Q4H PRN (Reason: pain) Qty: 40 RF: 0 sucralfate 100 mg/mL Suspension 1 g PO AC&BEDTIME Qty: 50 RF: 0 aspirin 81 mg tablet,chewable 81 mg PO DAILY Qty: 60 RF: 0 Discontinued warfarin 4 mg tablet 4 mg PO DIRECTED Qty: 90 RF: 3 warfarin 3 mg tablet See Rx Instructions .ROUTE .COMPLEX RF: 0 Discharge Orders: Discharge Order (Routine); Ordered 10/11/19 Ordered By: Jonathon Phelan Other Ambulatory Orders: Prothrombin Time INR (DAILY) Timeframe: 20191012 Facility: [facility] - Location: Lab - Main Lab Ordered By: Jonathon Phelan Prothrombin Time INR (DAILY) Timeframe: 20191013 Facility: [facility] - Location: Lab - Main Lab Ordered By: Jonathon Phelan Prothrombin Time INR (DAILY) Timeframe: 20191014 Facility: [facility] - Location: Lab - Main Lab Ordered By: Jonathon Phelan Referrals: . [Other] () Opal Manuel MD [Physician] - 1-3 days (Please schedule an appointment with Dr. Manuel to be seen in 1-3 days. ) Oziel Kelly MD [Physician] - 4-7 days (Please schedule and appointment with Dr. Kelly at [facility] Heart care services to be seen in 4-7 days.) Discharge Diet: Advance as tolerated Discharge Activity: Resume usual activity Patient Instructions: Atrial Fibrillation (GEN), Left Hemispheric Stroke (GEN), Self Care Measures After a Stroke (DC), Stroke Stoplight Activity Restrictions/Additional Instructions: -For stroke, continue aspirin 81 mg daily, atorvastatin 80 mg p.o. daily -Patient's Coumadin has been stopped, and she is being transitioned over to E liquis -However her INR today on 10/11/2019 is 2.24 -Recheck INR daily -Once INR is less than 2, start Eliquis 5 mg twice daily -Make sure you do not restart Coumadin, make sure you check INR daily, make sure once INR is less than 2 start Eliquis 5 mg twice daily, do not forget about patient's anticoagulation as she has developed a stroke on anticoagulation, and this is critical -Please follow-up with Dr. Manuel in 1 week -Follow-up with Dr. Kelly in the next 2 weeks -Please follow with primary care provider for multinodular thyroid, and further work-up Discharge Attestations Time Spent in Discharge Care*: less than 30 min Status at Discharge: Cognitive status at discharge: cognitively intact , Behavioral status at discharge: cooperative , Quality Metrics Clinical Quality Measures During this hospital stay, did patient experience: Stroke Contraindication to Antithrombotic: Antithrombotic prescribed Contraindication to Anticoagulation: Anticoagulation prescribed Contraindication to Statin: Statin prescribed Coding Level of Care Code Acute Shade Maker for g Fwd Diagnoses Cerebrovascular accident I63.9 CVA mechanism: unspecified Chronic anticoagulation Z79.01 Atrial fibrillation I48.19 Atrial fibrillation type: persistent (not longstanding) Pacemaker Z95.0 Hypertension I10 Hypertension type: essential hypertension Cellulitis L03.818 Site of cellulitis: other site
--- NOTE | 2019-10-11 14:02 | PC.NURSE ---
Report given to Lexi from [facility], denies further questions or concerns. Discussed in detail coumadin has stopped and eliquis is to be started upon INR level less than 2.0, verbalized understanding.
== END 2019-10-11 14:58 | disposition home or self-care (01) | DRG 65 ==
LOC: ER 18:29 → MEDSURG 22:40
PROVIDERS: Family Medicine; Admitting Provider Hospitalist; PCP Internal Medicine; Visit Provider Family Medicine
DX: I63.513 Cerebral infarction due to unspecified occlusion or stenosis of bilateral middle cerebral arteries (principal); I48.19 Other persistent atrial fibrillation; L03.314 Cellulitis of groin; R47.1 Dysarthria and anarthria; R29.810 Facial weakness; R29.703 NIHSS score 3; I10 Essential (primary) hypertension; Z79.01 Long term (current) use of anticoagulants; I27.20 Pulmonary hypertension, unspecified; Z95.0 Presence of cardiac pacemaker; Z86.73 Personal history of transient ischemic attack (TIA), and cerebral infarction without residual deficits; E04.2 Nontoxic multinodular goiter; Z79.891 Long term (current) use of opiate analgesic; Z79.82 Long term (current) use of aspirin
CPT/HCPCS: 12345; 36415; 36416; 70450; 70496; 70498; 71045; 76536; 80048; 80053; 80061; 80306; 81001; 81003; 82962; 83880; 84443; 85025; 85610; 85730; 92523; 92610; 93005; 93306; 96374; 96375; 97161; 97165; 97530; 97535; 99283; 99284; G0378; J3490; J7030; Q9967

== ENCOUNTER → 2019-10-26 07:58 | Outpatient (BNVA) | payer MEDICARE, OTHER, SELFPAY | PROVIDERS: PCP Internal Medicine; Visit Provider Nurse Practitioner | DX: Z86.73 Personal history of transient ischemic attack (TIA), and cerebral infarction without residual deficits (principal) | CPT/HCPCS: 99204 ==

== ENCOUNTER → 2020-03-10 12:08 | Outpatient (BNVA) | payer MEDICARE, OTHER, SELFPAY | PROVIDERS: PCP Internal Medicine; Visit Provider Internal Medicine Cardiovascular Disease | DX: I50.33 Acute on chronic diastolic (congestive) heart failure (principal); R06.02 Shortness of breath; I48.19 Other persistent atrial fibrillation; I11.0 Hypertensive heart disease with heart failure | CPT/HCPCS: 80048; 83880 ==

== ENCOUNTER → 2020-03-17 09:30 | Outpatient (BNVA) | payer MEDICARE, OTHER, SELFPAY | PROVIDERS: PCP Internal Medicine; Visit Provider Internal Medicine Cardiovascular Disease | DX: I10 Essential (primary) hypertension (principal); I48.19 Other persistent atrial fibrillation; I63.10 Cerebral infarction due to embolism of unspecified precerebral artery; R06.02 Shortness of breath | CPT/HCPCS: 80048; 83880 ==

== ENCOUNTER → 2020-03-28 09:58 | Outpatient (BNVA) | payer MEDICARE, OTHER, SELFPAY | PROVIDERS: PCP Internal Medicine; Visit Provider Internal Medicine Cardiovascular Disease | DX: R06.02 Shortness of breath (principal); I10 Essential (primary) hypertension; I48.19 Other persistent atrial fibrillation; I63.10 Cerebral infarction due to embolism of unspecified precerebral artery | CPT/HCPCS: 80048; 83880 ==

== ENCOUNTER → 2020-04-18 10:36 | Outpatient (BNVA) | payer MEDICARE, OTHER, SELFPAY | PROVIDERS: PCP Internal Medicine; Visit Provider Internal Medicine Cardiovascular Disease | DX: R06.02 Shortness of breath (principal) | CPT/HCPCS: 80048; 83880 ==

== ENCOUNTER → 2021-04-27 12:51 | Outpatient (BNVA) | payer MEDICARE, OTHER, SELFPAY | PROVIDERS: PCP Internal Medicine; Visit Provider Internal Medicine Cardiovascular Disease | DX: Z79.01 Long term (current) use of anticoagulants (principal) ==

== ENCOUNTER → 2021-05-04 09:39 | Outpatient (BNVA) | payer MEDICARE, OTHER, SELFPAY | PROVIDERS: PCP Internal Medicine; Visit Provider Internal Medicine Cardiovascular Disease | DX: Z79.01 Long term (current) use of anticoagulants (principal) ==

== ENCOUNTER → 2021-05-12 09:02 | Outpatient (BNVA) | payer MEDICARE, OTHER, SELFPAY | PROVIDERS: PCP Internal Medicine; Visit Provider Internal Medicine Cardiovascular Disease | DX: Z95.0 Presence of cardiac pacemaker (principal) ==

== ENCOUNTER → 2021-05-17 10:46 | Outpatient (BNVA) | payer MEDICARE, OTHER, SELFPAY | PROVIDERS: PCP Internal Medicine; Visit Provider Internal Medicine Cardiovascular Disease | DX: I11.0 Hypertensive heart disease with heart failure (principal); I50.33 Acute on chronic diastolic (congestive) heart failure; R06.02 Shortness of breath; I48.19 Other persistent atrial fibrillation; I10 Essential (primary) hypertension | CPT/HCPCS: 80048; 83880; 99214 ==

== ENCOUNTER → 2021-05-19 08:08 | Outpatient (BNVA) | payer MEDICARE, OTHER, SELFPAY | PROVIDERS: PCP Internal Medicine; Visit Provider Internal Medicine Cardiovascular Disease | DX: Z79.01 Long term (current) use of anticoagulants (principal) ==

== ENCOUNTER → 2021-06-02 12:40 | Outpatient (BNVA) | payer MEDICARE, OTHER, SELFPAY | PROVIDERS: PCP Internal Medicine; Visit Provider Internal Medicine Cardiovascular Disease | DX: Z79.01 Long term (current) use of anticoagulants (principal) ==

== ENCOUNTER → 2021-06-09 08:25 | Outpatient (BNVA) | payer MEDICARE, OTHER, SELFPAY | PROVIDERS: PCP Internal Medicine; Visit Provider Internal Medicine Cardiovascular Disease | DX: Z45.010 Encounter for checking and testing of cardiac pacemaker pulse generator [battery] (principal) | CPT/HCPCS: 93280 ==

== ENCOUNTER → 2021-06-15 09:09 | Outpatient (BNVA) | payer MEDICARE, OTHER, SELFPAY | PROVIDERS: PCP Internal Medicine; Visit Provider Internal Medicine Cardiovascular Disease | DX: Z79.01 Long term (current) use of anticoagulants (principal) ==

== ENCOUNTER → 2021-06-20 12:30 | Outpatient (BNVA) | payer MEDICARE, OTHER, SELFPAY | PROVIDERS: PCP Internal Medicine; Visit Provider Internal Medicine Cardiovascular Disease | DX: I11.0 Hypertensive heart disease with heart failure (principal); I50.32 Chronic diastolic (congestive) heart failure; Z95.0 Presence of cardiac pacemaker; Z86.73 Personal history of transient ischemic attack (TIA), and cerebral infarction without residual deficits; I48.19 Other persistent atrial fibrillation; Z79.01 Long term (current) use of anticoagulants; Z79.82 Long term (current) use of aspirin | CPT/HCPCS: 99213; 99214 ==

== ENCOUNTER → 2021-06-22 09:13 | Outpatient (BNVA) | payer MEDICARE, OTHER, SELFPAY | PROVIDERS: PCP Internal Medicine; Visit Provider Internal Medicine Cardiovascular Disease | DX: Z79.01 Long term (current) use of anticoagulants (principal) ==

== ENCOUNTER 2021-06-26 10:16 | Outpatient (CLI) | payer MEDICARE, OTHER, SELFPAY ==
[2021-06-26 11:00] LABS: Basophils # 0.1 10^3/uL (0.0-0.1); Basophils % 1.1 %; Eosinophils # 0.3 10^3/uL (0.0-0.8); Eosinophils % 5.7 %; Hematocrit 34.6 % (37.0-47.0); Hemoglobin 10.6 g/dL (11.5-15.3); Lymphocytes # 1.4 10^3/uL (0.8-4.8); Mean Corpuscular HGB Conc 30.6 g/dL (30.0-36.0); Mean Corpuscular Hemoglobin 27.7 pg (28.0-34.0); Mean Corpuscular Volume 90.3 fl (81-99); Mean Platelet Volume 10.6 fL (7.4-10.4); Monocytes # 0.6 10^3/uL (0.2-0.9); Monocytes % 9.9 %; Neutrophils # 3.26 10^3/uL (1.8-7.7); Neutrophils % 57.9 %; Nucleated Red Blood Cells % 0 %; Platelet Count 262 10^3/cmm (130-400); Red Blood Count 3.83 10^6/uL (4.1-5.3); Red Cell Distribution Width 14.3 % (12.1-15.1); White Blood Count 5.6 10^3/uL (4.0-10.0)
[2021-06-26 11:12] LABS: Prothrombin Time (Patient) 27.5 Seconds (12.0-15.1)
[2021-06-26 11:20] LABS: Anion Gap 12.8 (5-19); Blood Urea Nitrogen 19 mg/dL (8-23); Calcium 8.5 mg/dL (8.5-10.5); Carbon Dioxide 27 mmol/L (22-29); Chloride 103 mmol/L (98-107); Glucose 94 mg/dL (65-115); Osmolality Calculated 290 mOsm/kg (285-295); Potassium 3.8 mmol/L (3.5-5.1); Sodium 139 mmol/L (136-145)
== END 2021-06-26 10:17 | disposition home or self-care (01) ==
LOC: LAB 10:19
PROVIDERS: PCP Internal Medicine; Visit Provider Internal Medicine Cardiovascular Disease
DX: Z01.812 Encounter for preprocedural laboratory examination (principal); I50.32 Chronic diastolic (congestive) heart failure; I48.91 Unspecified atrial fibrillation; Z95.0 Presence of cardiac pacemaker
CPT/HCPCS: 36415; 80048; 85025; 85610; 86850; 86900

== ENCOUNTER 2021-06-28 06:44 | Outpatient (CLI) | payer MEDICARE, OTHER, SELFPAY ==
[2021-06-28 07:30] VITALS: BMI 27.6
[2021-06-28 07:41] LABS: INR 1.71 (0.83-1.21); Prothrombin Time (Patient) 20.4 Seconds (12.0-15.1)
[2021-06-28 07:48] VITALS: BP 132/106; PULSE 65; RESP 16; TEMP 36.7; O2SAT 96
--- NOTE | 2021-06-28 08:01 | SUR.PREOP ---
MD/PATIENT DISCUSSION/ ABNORMAL LABS. Dr Kelly arrived to discuss today's PT/INR result. Lab finding is 1.71 INR. Decision made to postpone the procedure today and reschedule pending rep and lab availability. Questions answered. [employer] notified of cancelling today. States they will check their schedule and see if 7 am tomorrow is available to them- to call back with answer. Discharge pending at this time. Centralized scheduling aware of tentative reschedule date and time and is holding the position pending pacemaker rep availability.
--- NOTE | 2021-06-28 08:24 | SUR.PREOP ---
RESCHEDULE Medtronic rep availiable for tomorrow 06/29/2021 at 7 am. Centralized scheduling made aware to reschedule the patient for 7 am tomorrow and to create a new account number for the visit. Patient given the date/time to check in for the procedure. Dr Kelly aware that patient is a Lovenox bridge for AFIB. He states that since the procedure is scheduled for tomorrow at 7 am there is no need for additional lovenox to be taken. Patient made aware of this. Discharged in stable condition with spouse/family present.
== END 2021-06-28 06:45 | disposition home or self-care (01) ==
LOC: CCL 06:48
PROVIDERS: PCP Internal Medicine; Visit Provider Internal Medicine Cardiovascular Disease
DX: Z45.010 Encounter for checking and testing of cardiac pacemaker pulse generator [battery] (principal); Z53.8 Procedure and treatment not carried out for other reasons
CPT/HCPCS: 85610

== ENCOUNTER 2021-06-29 08:19 | Observation (INO) | payer MEDICARE, OTHER, SELFPAY ==
[2021-06-29] VITALS (10 sets, daily range): BP systolic 120–163; BP diastolic 62–78; PULSE 59–94; RESP 16–19; TEMP 36.4–37.4; O2SAT 93–97; BMI 27.6
--- NOTE | 2021-06-29 07:10 | W.PM.OPSUD ---
Surgery/Procedure H&P Update DATE OF PROCEDURE: June 29, 2021 DATE H&P PERFORMED: 06/20/21 H&P UPDATE INFORMATION: I have reviewed H&P completed within last 30 days, I have examined patient prior to procedure and No changes to prior documentation PREOP DIAGNOSIS: Pacemaker JOHNNIE PRIMARY INDICATION FOR PROCEDURE: As above PLANNED PROCEDURE: Operation Date: 06/29/21 07:00 Proposed Procedures p Pacemaker Generator Change(Left) - Oziel Kelly MD PHYSICAL EXAM: alert, clear to auscultation bilaterally, regular rate & rhythm and operative site marked AIRWAY EVAL/ANESTHESIA PLAN: normal airway, see other exam findings, ASA III, Monitored Anesthesia, Local Anesthesia, Risks, benefits & alternatives of sedation and/or procedure discussed and Patient agrees to continue as planned
--- NOTE | 2021-06-29 08:01 | PM.OP ---
Operative Report Date of procedure: June 29, 2021 Pre-op diagnosis: Preop Diagnosis Pacemaker JOHNNIE Procedure: PROCEDURE: PACEMAKER REVISION PREOPERATIVE DIAGNOSIS: Pacemaker elective replacement indication. POSTOPERATIVE DIAGNOSIS: Pacemaker elective replacement indication. ESTIMATED BLOOD LOSS: Around 5 milliliters. COMPLICATIONS: None. BRIEF HISTORY: The patient is 85-year-old white female who had a permanent pacemaker implantation for symptomatic bradycardia/intermittent atrial fibrillation. The patient was found to have elective replacement indication, during routine office followup evaluation. For further management of patient's condition for the symptomatic bradycardia, the patient required a pacemaker revision. Patient required a dual-chamber pacemaker for symptom relief and the need for AV synchrony The procedure was explained to the patient and her family in detail with the risks and benefits. The risks of bleeding, hematoma, vascular injury, infection and other concomitant complications were explained in detail, which the patient understood well and consented to proceed. PROCEDURES PERFORMED: 1. Explantation of the old pacemaker generator. 2. Implantation of the new generator. The patient brought to the Cardiac Real Estate Salesperson. The left side of the neck and the subclavian area were cleaned and draped in a sterile fashion. 1% Xylocaine was used for local anesthetic agent. A 2 inch long incision was made just below the previous pacemaker scar. By sharp and blunt dissection, the pacemaker pocket was accessed. The old generator was delivered from the pocket. The generator was detached from the lead. The new Medtronic generator was attached to the lead. The pacemaker pocket was copiously irrigated with vancomycin solution. Complete hemostasis was achieved. The lead was positioned behind the generator and the generator was attached to the pectoralis fascia by suturing with 0 Surgilon. Sponge counts were confirmed. The pacemaker pocket was closed in layers. Skin was approximated using 4-0 Vicryl. EXPLANTED DEVICE: Pacemaker Generator: Brand: [employer]a. Model number: [id number]. Serial number: [id number] Date of implant: 03/23/2009 IMPLANTED DEVICES: Ventricular Lead: Date of implantation: Model number: 4092/[id number] Serial number: [id number] Make: Medtronic. Atrial lead Date of implantation: Model number: 4568/45 Serial number: [id number] Make: Medtronic. Implanted Generator: Date of implantation : 06/29/2021 Brand: AzrooseveltXT DR DONI Barros Model number: [id number] Serial number: [id number] Make: Medtronic Stimulation Threshold: The ventricular sensing was 9.6 millivolts. Ventricular lead impedance was 475 ohms and the pacing threshold was 1.0 volts at 0.4 milliseconds. The atrial sensing was 0.9 millivolts. Atrial lead impedance was 342 ohms and the pacing threshold was 0.75 volts at milliseconds. The pacemaker was set for DDDR mode with an upper rate of 130 and a lower rate of 60. The mode switch was turned on A pressure dressing was applied over the pacemaker site. The patient was transferred back to medical floor in stable condition. Sponge counts were correct.
[2021-06-29] MEDS: sodium chloride 0.9% 1,000 ML 75 ML IV ×2 (09:35→23:43)
[2021-06-29] MEDS: FUROsemide 40 mg Tablet PO (09:36)
[2021-06-29] MEDS: multivitamin therapeutic Tablet 1 TAB PO (09:36)
[2021-06-29] MEDS: potassium chloride ER 10 mEq Tablet 30 MEQ PO (09:36)
[2021-06-29] MEDS: dilTIAZem ER (24HR) 120 mg Capsule PO (09:36)
--- NOTE | 2021-06-29 10:49 | PC.CHAP ---
Pastoral Care Encounter/Spiritual Assessment Type of Contact [] Declined shingler visit [] Patient/Family/Request visit [] Outpatient visit [] Follow-up visit [] Physician referral [] Code/Alert [x] Routine visit [] Staff referral [] Actively dying [] Patient sleeping [] Family support [] [] Out of room [] Palliative care [] [x] Receiving care in room [] Pre-surgical visit [] Trauma [] Long length of stay [] ICU visit [] Other: Relational/Emotional Strength [x] Patient feels connected with others/family/visitors/staff [] Distress [] Loneliness/isolation [] Abandonment Spirituality of Patient [x] Person of Sandhya [] Attends Episcopalian of their Sandhya [x] Believes in Prayer [] Reads Bible or Anglican materials [] There are Spiritual issues to be addressed Movement Assembly Final Inspector Interventions [x] Prayer [x] Active listening [x] Non-anxious presence [x] Spiritual/emotional support [] Crisis/trauma care [x] Spiritual counseling [] Bereavement support [] Provided bereavement packet [] Provided Bible/devotional materials [] Provided toy/stuffed animal, coloring book to patient or family member [] Provided Communion [] Anointing/[place] [] Salvation [x] Completed spiritual assessment [] Other: Impact on Illness or Injury [] Angry [] Fearful [x] Anxious [] Often cries [] Exhaustion [] Unable to work [] Unable to attend methodist [] Unable to walk/stand [] Unable to read [] Unable to drive [] Unable to eat/drink [] Unable to sleep [] Unable to be with family [] Patient intubated [] Other: Summary has a possitive attitudefeels good going home Time spent with patient 10 mins
[2021-06-30] VITALS (7 sets, daily range): BP systolic 134–165; BP diastolic 64–72; PULSE 59–66; RESP 16–20; TEMP 36.7–36.9; O2SAT 93–95
--- NOTE | 2021-06-30 06:00 | ECG_ITS ---
[facility] Test Date: 2021-06-30 Pat Name: Khushi Dolan Department: Room: 261 Gender: Female Computer Support Technician: : [id number] Requested By: Oziel Kelly Order Number: [id number] Josselyn MD: Oziel Kelly M.D. Measurements Intervals [place] Rate: 60 P: 174 IA: 271 QRS: 11 QRSD: 92 T: -31 QT: 407 QTc: 407 Interpretive Statements ELECTRONIC ATRIAL PACEMAKER NONSPECIFIC ST & T-WAVE ABNORMALITY ABNORMAL RHYTHM ECG Compared to ECG 10/09/2019 18:27:00 T-wave abnormality now present Atrial fibrillation no longer present Incomplete right bundle-branch block no longer present Myocardial infarct finding no longer present Electronically Signed On 06-30-2021 20:24:26 CDT by Oziel Kelly M.D. [email or web address]
[2021-06-30] MEDS: potassium chloride ER 10 mEq Tablet 30 MEQ PO (08:16)
[2021-06-30] MEDS: metoprolol succinate ER (24 HR) 100 mg Tablet PO (08:17)
[2021-06-30] MEDS: multivitamin therapeutic Tablet 1 TAB PO (08:17)
[2021-06-30] MEDS: FUROsemide 40 mg Tablet PO (08:17)
[2021-06-30] MEDS: dilTIAZem ER (24HR) 120 mg Capsule PO (08:17)
[2021-06-30] MEDS: aspirin 81 mg Chew Tablet PO (08:17)
== END 2021-06-30 14:56 | disposition home or self-care (01) ==
LOC: MEDSURG 08:19
PROVIDERS: Admitting Provider Internal Medicine Cardiovascular Disease; PCP Internal Medicine; Visit Provider Internal Medicine Cardiovascular Disease
DX: Z45.02 Encounter for adjustment and management of automatic implantable cardiac defibrillator (principal); Z79.82 Long term (current) use of aspirin; Z79.01 Long term (current) use of anticoagulants; Z86.73 Personal history of transient ischemic attack (TIA), and cerebral infarction without residual deficits; I10 Essential (primary) hypertension; I48.91 Unspecified atrial fibrillation; Z82.49 Family history of ischemic heart disease and other diseases of the circulatory system; Z83.3 Family history of diabetes mellitus
CPT/HCPCS: 33213; 36415; 93005; 96360; 97110; 97166; 97535; 99152; 99153; C1769; C1786; G0378; J0690; J2250; J3010; J7030; J7050

== ENCOUNTER → 2021-07-07 13:41 | Outpatient (BNVA) | payer MEDICARE, OTHER, SELFPAY | PROVIDERS: PCP Internal Medicine; Visit Provider Internal Medicine Cardiovascular Disease | DX: Z79.01 Long term (current) use of anticoagulants (principal) ==

== ENCOUNTER → 2021-07-14 09:45 | Outpatient (BNVA) | payer MEDICARE, OTHER, SELFPAY | PROVIDERS: PCP Internal Medicine; Visit Provider Internal Medicine Cardiovascular Disease | DX: Z79.01 Long term (current) use of anticoagulants (principal) ==

== ENCOUNTER → 2021-07-18 08:43 | Outpatient (BNVA) | payer MEDICARE, OTHER, SELFPAY | PROVIDERS: PCP Internal Medicine; Visit Provider Nurse Practitioner Family | DX: Z09 Encounter for follow-up examination after completed treatment for conditions other than malignant neoplasm (principal); Z95.0 Presence of cardiac pacemaker | CPT/HCPCS: 99213; 99214 ==

== ENCOUNTER → 2021-07-20 15:39 | Outpatient (BNVA) | payer MEDICARE, OTHER, SELFPAY | PROVIDERS: PCP Internal Medicine; Visit Provider Internal Medicine Cardiovascular Disease | DX: Z79.01 Long term (current) use of anticoagulants (principal) ==

== ENCOUNTER → 2021-07-28 10:13 | Outpatient (BNVA) | payer MEDICARE, OTHER, SELFPAY | PROVIDERS: PCP Internal Medicine; Visit Provider Internal Medicine Cardiovascular Disease | DX: Z79.01 Long term (current) use of anticoagulants (principal) ==

== ENCOUNTER → 2021-08-02 14:44 | Outpatient (BNVA) | payer MEDICARE, OTHER, SELFPAY | PROVIDERS: PCP Internal Medicine; Visit Provider Internal Medicine Cardiovascular Disease | DX: Z79.01 Long term (current) use of anticoagulants (principal) ==

== ENCOUNTER → 2021-08-10 09:46 | Outpatient (BNVA) | payer MEDICARE, OTHER, SELFPAY | PROVIDERS: PCP Internal Medicine; Visit Provider Internal Medicine Cardiovascular Disease | DX: Z79.01 Long term (current) use of anticoagulants (principal) ==

== ENCOUNTER → 2021-08-21 10:37 | Outpatient (BNVA) | payer MEDICARE, OTHER, SELFPAY | PROVIDERS: PCP Internal Medicine; Visit Provider Internal Medicine Cardiovascular Disease | DX: I11.0 Hypertensive heart disease with heart failure (principal); I50.32 Chronic diastolic (congestive) heart failure; Z95.0 Presence of cardiac pacemaker; Z86.73 Personal history of transient ischemic attack (TIA), and cerebral infarction without residual deficits; I48.19 Other persistent atrial fibrillation; Z79.01 Long term (current) use of anticoagulants | CPT/HCPCS: 99214 ==

== ENCOUNTER → 2021-09-01 11:57 | Outpatient (BNVA) | payer MEDICARE, OTHER, SELFPAY | PROVIDERS: PCP Internal Medicine; Visit Provider Internal Medicine Cardiovascular Disease | DX: Z79.01 Long term (current) use of anticoagulants (principal) ==

== ENCOUNTER → 2021-09-15 08:19 | Outpatient (BNVA) | payer MEDICARE, OTHER, SELFPAY | PROVIDERS: PCP Internal Medicine; Visit Provider Internal Medicine Cardiovascular Disease | DX: Z79.01 Long term (current) use of anticoagulants (principal) ==

== ENCOUNTER → 2021-09-19 11:18 | Outpatient (BNVA) | payer MEDICARE, OTHER, SELFPAY | PROVIDERS: PCP Internal Medicine; Visit Provider Internal Medicine Cardiovascular Disease | DX: Z79.01 Long term (current) use of anticoagulants (principal) ==

== ENCOUNTER → 2022-02-21 11:05 | Outpatient (BNVA) | payer MEDICARE, OTHER, SELFPAY | PROVIDERS: PCP Internal Medicine; Visit Provider Internal Medicine Cardiovascular Disease | DX: I11.0 Hypertensive heart disease with heart failure (principal); I50.32 Chronic diastolic (congestive) heart failure; Z95.0 Presence of cardiac pacemaker; I48.19 Other persistent atrial fibrillation; Z79.01 Long term (current) use of anticoagulants | CPT/HCPCS: 99214 ==

== ENCOUNTER → 2022-09-05 10:47 | Outpatient (BNVA) | payer MEDICARE, OTHER, SELFPAY | PROVIDERS: PCP Internal Medicine; Visit Provider Internal Medicine Cardiovascular Disease | DX: I48.19 Other persistent atrial fibrillation (principal); Z95.0 Presence of cardiac pacemaker; I11.0 Hypertensive heart disease with heart failure; I50.32 Chronic diastolic (congestive) heart failure; Z86.73 Personal history of transient ischemic attack (TIA), and cerebral infarction without residual deficits; Z79.01 Long term (current) use of anticoagulants | CPT/HCPCS: 99214 ==

== ENCOUNTER 2023-02-15 14:30 | Outpatient (CLI) | payer MEDICARE, OTHER, SELFPAY ==
--- NOTE | 2023-02-15 14:38 | XRR_ITS ---
PROCEDURE INFORMATION: Exam: XR Left Foot Exam date and time: 02/15/2023 2:41 PM Age: 87 years old Clinical indication: Pain and injury or trauma; Other: Dropped box on foot; Blunt trauma; Ankle and foot; Left; Additional info: R52 - pain, unspecified TECHNIQUE: Imaging protocol: Radiologic exam of the left foot. Views: 3 or more views. COMPARISON: CR XR foot LT min 3V* [id number] 01/09/2023 11:20 AM FINDINGS: Bones/joints: Osteopenia. Calcaneal spurring. No fracture or dislocation. No acute osseous or joint abnormality. Mild degenerative changes at the 1st MTP joint and at the IP articulations. Soft tissues: Normal. XR/XR foot LT min 3V* [id number] IMPRESSION: Degenerative changes.
--- NOTE | 2023-02-15 14:38 | XRR_ITS ---
PROCEDURE INFORMATION: Exam: XR Left Ankle Exam date and time: 02/15/2023 2:41 PM Age: 87 years old Clinical indication: Pain and injury or trauma; Other: Dropped box on foot; Blunt trauma; Ankle and foot; Left; Additional info: R52 - pain, unspecified TECHNIQUE: Imaging protocol: Radiologic exam of the left ankle. Views: 3 or more views. COMPARISON: CR XR foot LT min 3V* [id number] 02/15/2023 2:41 PM FINDINGS: Bones/joints: Moderate osteopenia. No fracture or dislocation. No acute osseous, joint, or soft tissue abnormality. Soft tissues: Soft tissue swelling. XR/XR ankle LT min 3V* [id number] IMPRESSION: No acute traumatic injury.
== END 2023-02-15 14:31 | disposition home or self-care (01) ==
LOC: RAD 14:34
PROVIDERS: PCP Internal Medicine; Visit Provider Thoracic Surgery (Cardiothoracic Vascular Surgery)
DX: M25.572 Pain in left ankle and joints of left foot (principal); R60.0 Localized edema; M19.072 Primary osteoarthritis, left ankle and foot; W20.8XXA Other cause of strike by thrown, projected or falling object, initial encounter
CPT/HCPCS: 73610; 73630; 99213

== ENCOUNTER 2023-03-14 08:25 | Outpatient (RCR) | payer MEDICARE, OTHER, SELFPAY | END 2023-03-27 23:59 | disposition home or self-care (01) | LOC: SPT 08:25 | PROVIDERS: PCP Internal Medicine; Visit Provider Thoracic Surgery (Cardiothoracic Vascular Surgery) | DX: M25.673 Stiffness of unspecified ankle, not elsewhere classified (principal) | CPT/HCPCS: 97161 ==

== ENCOUNTER 2023-03-28 06:00 | Outpatient (RCR) | payer MEDICARE, OTHER, SELFPAY | END 2023-04-25 23:59 | disposition home or self-care (01) | LOC: SPT 06:00 | PROVIDERS: Visit Provider Thoracic Surgery (Cardiothoracic Vascular Surgery) | DX: M25.673 Stiffness of unspecified ankle, not elsewhere classified (principal) | CPT/HCPCS: 97110 ==

== ENCOUNTER 2023-04-24 06:00 | Outpatient (RCR) | payer MEDICARE, OTHER, SELFPAY | END 2023-04-25 23:59 | disposition home or self-care (01) | LOC: SPT 06:00 | PROVIDERS: Visit Provider Thoracic Surgery (Cardiothoracic Vascular Surgery) | DX: I63.9 Cerebral infarction, unspecified (principal); R53.1 Weakness | CPT/HCPCS: 97110; 97161 ==

== ENCOUNTER 2023-04-26 06:00 | Outpatient (RCR) | payer MEDICARE, OTHER, SELFPAY | END 2023-05-26 23:59 | disposition home or self-care (01) | LOC: SPT 06:00 | PROVIDERS: Visit Provider Thoracic Surgery (Cardiothoracic Vascular Surgery) | DX: I63.9 Cerebral infarction, unspecified (principal); R53.1 Weakness | CPT/HCPCS: 97110 ==

== ENCOUNTER 2023-05-27 06:00 | Outpatient (RCR) | payer MEDICARE, OTHER, SELFPAY | END 2023-06-25 23:59 | disposition home or self-care (01) | LOC: SPT 06:00 | PROVIDERS: Visit Provider Thoracic Surgery (Cardiothoracic Vascular Surgery) | DX: I63.9 Cerebral infarction, unspecified (principal); R53.1 Weakness | CPT/HCPCS: 97110 ==

== ENCOUNTER → 2023-06-05 11:24 | Outpatient (BNVA) | payer MEDICARE, OTHER, SELFPAY | PROVIDERS: Visit Provider Internal Medicine Cardiovascular Disease | DX: I48.19 Other persistent atrial fibrillation (principal); Z95.0 Presence of cardiac pacemaker; Z79.01 Long term (current) use of anticoagulants; I11.0 Hypertensive heart disease with heart failure; I50.32 Chronic diastolic (congestive) heart failure; Z79.82 Long term (current) use of aspirin | CPT/HCPCS: 99214 ==

== ENCOUNTER → 2023-06-14 16:52 | Outpatient (BNVA) | payer MEDICARE, OTHER, SELFPAY | PROVIDERS: Visit Provider Internal Medicine Cardiovascular Disease | DX: Z45.010 Encounter for checking and testing of cardiac pacemaker pulse generator [battery] (principal) | CPT/HCPCS: 93296 ==

== ENCOUNTER → 2023-09-04 10:15 | Outpatient (BNVA) | payer MEDICARE, OTHER, SELFPAY | PROVIDERS: PCP Surgery Vascular Surgery; Visit Provider Internal Medicine Cardiovascular Disease | DX: I48.19 Other persistent atrial fibrillation (principal); Z79.01 Long term (current) use of anticoagulants; Z79.82 Long term (current) use of aspirin; I11.0 Hypertensive heart disease with heart failure; I50.32 Chronic diastolic (congestive) heart failure; Z95.0 Presence of cardiac pacemaker | CPT/HCPCS: 99214 ==

== ENCOUNTER → 2023-11-25 15:39 | Outpatient (BNVA) | payer MEDICARE, OTHER, SELFPAY | PROVIDERS: PCP Surgery Vascular Surgery; Visit Provider Family Medicine | DX: E53.8 Deficiency of other specified B group vitamins (principal); I48.19 Other persistent atrial fibrillation; N18.9 Chronic kidney disease, unspecified; I12.9 Hypertensive chronic kidney disease with stage 1 through stage 4 chronic kidney disease, or unspecified chronic kidney disease | CPT/HCPCS: 80053; 82607; 84443; 85025 ==

== ENCOUNTER → 2024-07-15 11:20 | Outpatient (BNVA) | payer MEDICARE, OTHER, SELFPAY | PROVIDERS: PCP Surgery Vascular Surgery; Visit Provider Internal Medicine Cardiovascular Disease | DX: Z45.018 Encounter for adjustment and management of other part of cardiac pacemaker (principal) | CPT/HCPCS: 93296 ==